=== PATIENT | female | born 1995 | race Caucasian/White ===

== ENCOUNTER 2020-02-29 16:22 | Emergency (ER) | payer BC, SELFPAY ==
--- NOTE | ~2020-02-29 | XR_ITS ---
EXAMINATION: XR chest 1V portable INDICATION: Mid chest pain TECHNIQUE: Portable AP chest at 1815 hours COMPARISON: 06/30/2013 FINDINGS: The lungs are free of acute opacities. There is no pleural effusion or pneumothorax. The ca rdiomediastinal silhouette is normal. The visualized bones and soft tissues are unremarkable. IMPRESSION: 1. No acute cardiopulmonary abnormality. Reviewed, dictated and finalized at location A.
[2020-02-29 16:25] VITALS: BP 98/65; PULSE 88; RESP 19; TEMP 36.8; O2SAT 100
--- NOTE | 2020-02-29 16:25 | ECG_ITS ---
Measurements Intervals [place] Rate: 73 P: 43 CA: 146 QRS: 76 QRSD: 94 T: 39 QT: 353 QTc: 389 Interpretive Statements SINUS RHYTHM NORMAL ECG Electronically Signed On 02-29-2020 16:32:18 CDT by Alexis Purcell D.O.
[2020-02-29 16:37] LABS: Basophils Percent Auto 0.3 % (0.2-1.2); Eosinophils Absolute Auto 0.1 K/mm3 (0-0.3); Eosinophils Percent Auto 0.7 % (0-4.4); Hematocrit 36.1 % (37.0-47.0); Hemoglobin 12.2 g/dL (12.0-15.0); Immature Granulocyte Absolute 0.02 K/mm3 (0.00-0.031); Immature Granulocyte Percent A 0.2 % (0-0.5); Lymphocytes Percent Auto 24.8 % (18.3-44.2); Mean Corpuscular HGB Conc 33.8 g/dl (32-36); Mean Corpuscular Hemoglobin 28.8 pg (26-34); Mean Corpuscular Volume 85.3 fl (80-100); Mean Platelet Volume 10.4 fl (7.4-10.4); Monocytes Absolute Auto 0.6 K/mm3 (0.1-0.6); Monocytes Percent Auto 4.9 % (2.6-8.5); Neutrophils Absolute Auto 7.8 K/mm3 (1.3-6.7); Neutrophils Percent Auto 69.1 % (45.5-73.1); Platelet Count Result 226 k/mm3 (150-375); Red Blood Count 4.23 M/mm3 (4.2-5.4); Red Cell Distribution Width 11.5 % (11.5-14.5); White Blood Count 11.3 K/mm3 (4.5-10.0)
[2020-02-29 16:49] LABS: Blood Urea Nitrogen 8 mg/dL (7-17); Calcium 9.1 mg/dL (8.4-10.2); Carbon Dioxide 24 mmol/L (22-30); Chloride 103 mmol/L (98-107); Estimated Glomerular Filt Rate > 60; Glucose 98 mg/dL (65-105); Potassium 3.6 mmol/L (3.4-5.0); Sodium 135 mmol/L (137-145)
--- NOTE | 2020-02-29 17:15 | ED.SOB ---
HPI - SOB/Dyspnea General Chief Complaint: Shortness of Breath/Dyspnea Stated Complaint: SOB Time Seen by Provider: 02/29/20 17:05 History of Present Illness HPI Narrative: Patient presents with a couple days of increasing shortness of breath. She keeps taking deep cleansing breaths, without improvement. She has no coughing no wheezing no fever chills or sweats. She is 7 weeks . She has a history of anxiety and depression and is on Wellbutrin. She is out of her vitamins. 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 She quit smoking and quit vaping with this . She does not drink alcohol. She does smoke marijuana. She said she had asthma when she was 3. She has not used inhalers that she remembers. Shortness of breath does not limit her activity. Sometimes she gets a just sitting on the couch watching TV. She saw her POWER BUILDER DEVELOPER last week for chest pain with deep breath. Her surgeries include jaw surgery, tonsillectomy, and gastric sleeve bypass. MD elicited complaint: shortness of breath Onset (ago): day(s) Timing: intermittent Related Data Home Medications Medication Instructions Recorded Confirmed Alive 1 tablet PO DAILY 07/26/19 07/28/19 alprazolam [Xanax] 0.25 mg PO BID PRN 07/26/19 07/28/19 bupropion HCl 150 mg PO QPM 07/26/19 07/28/19 esomeprazole magnesium [Nexium 20 mg PO DAILY PRN 07/26/19 07/28/19 24HR] Allergies Allergy/AdvReac Type Severity Reaction Status Date / Time No Known Allergies Allergy Unknown Verified 02/29/20 16:27 Review of Systems Review of Systems: Narrative: CONSTITUTIONAL: Denies fever, chills, or sweats. EYES: Denies visual changes, redness, or discharge. ENT: Denies rhinorrhea, congestion, sore throat, or otalgia. CARDIOVASCULAR: Denies chest pain, palpitations, or edema. RESPIRATORY: Denies cough or but she does have dyspnea. GASTROINTESTINAL: Denies abdominal pain, nausea, vomiting, or diarrhea. GENITOURINARY: Denies dysuria or hematuria. SKIN: Denies rash or itching. MUSCULOSKELETAL: Denies back pain, joint pain, or myalgia. NEUROLOGIC: Denies headache, numbness, or weakness. PSYCHIATRIC: Denies anxiety or depression. [facility] Past Medical History Medical History Anxiety Back pain Depression Surgical History Surgical History History of gastric bypass History of mandibular surgery History of tonsillectomy Family History Family History (Updated 04/05/16 @ 23:19 by DOCTOR UNKNOWN) Grandparent Hypertension Family history of lung cancer Family history of malignant neoplasm of breast Family history of malignant neoplasm of urinary bladder Family history of type 2 diabetes mellitus Family history of heart disease in male family member before age 55 Social History Social History (Updated 02/29/20 @ 17:19 by Jessi Platt MD) Smoking status: Former smoker Second hand tobacco smoke exposure: No Smoking end date: 09/08/13 Alcohol intake: never Substance use: current Substance use type: marijuana Gender identity (if verbalized by the patient): Female Exam Narrative: Exam Narrative: GENERAL: Well-appearing, well-nourished, and in no acute distress. Keeps taking deep sighs. HEAD: Normocephalic, atraumatic. EYES: PERRLA and EOMI. ENT: Nares clear, no rhinorrhea or epistaxis. Mucous membranes moist. NECK: Supple. CHEST: Clear to auscultation. No respiratory distress. No chest wall tenderness. HEART: Regular rate and rhythm. No murmur heard. Normal peripheral pulses. ABDOMEN: Soft, nontender, nondistended, normal active bowel sounds. EXTREMITIES: Normal range of motion. No edema. SKIN: Warm, dry, no rash. NEURO: No focal deficits. Alert and oriented x3. PSYCH: Seems worried. Course Reevaluation(s) Reevaluation #1: Went in to tell the patient about her blood gas in the hyperventilation. She was disappo
[2020-02-29 17:46] LABS: Alveolar/Arterial O2 Gradient 5.6 mmHg; Base Excess ABG -2.1 mEq/l (+/-2.0); Fractional Inspired Oxygen 21 %; HCO3 ABG 20.3 mEq/l (22.0-26.0); Oxygen Saturation ABG 98.4 % (95.0-100.0); Oxyhemoglobin 95.7 % THb (90.0-100.0); PCO2 ABG 28.3 mmHg (35.0-45.0); PO2 ABG 110.2 mmHg (80.0-100.0); PO2 FiO2 Ratio Arterial Blood 5.25 %; Total Hemoglobin 12.5 g/dL (12.0-18.0); pH ABG 7.474 (7.350-7.450)
[2020-02-29 17:47] LABS: Device ROOM AIR; Modified Allen's Test Pass; Site Drawn LEFT RADIAL
[2020-02-29 18:28] VITALS: BP 114/63; PULSE 73; RESP 17; O2SAT 99
== END 2020-02-29 18:29 | disposition home or self-care (01) ==
PROVIDERS: Emergency Provider Emergency Medicine; PCP Internal Medicine
DX: R06.4 Hyperventilation (principal); F41.9 Anxiety disorder, unspecified; F32.9 Major depressive disorder, single episode, unspecified
CPT/HCPCS: 36415; 36600; 71045; 80048; 82805; 85025; 93005; 99284

== ENCOUNTER 2020-07-24 16:32 | Outpatient (RCR) | payer BC, SELFPAY ==
[2020-07-24 16:56] LABS: Hematocrit 30.2 % (37.0-47.0); Hemoglobin 10.1 g/dL (12.0-15.0)
[2020-07-24 18:00] LABS: HIV 1/2 Ab P24 Ag Result Negative (Negative)
[2020-07-25 10:54] LABS: Rapid Plasma Reagin Non-Reactive (NonReactive)
[2020-07-26] MEDS: RHO(D) IMMUNE GLOBULIN 300 MCG SYRINGE IM (12:00)
== END 2020-10-22 23:59 | disposition home or self-care (01) ==
LOC: ANHLAB 16:32
PROVIDERS: PCP Internal Medicine; Visit Provider Obstetrics & Gynecology
DX: Z11.4 Encounter for screening for human immunodeficiency virus [HIV] (principal); Z29.13 Encounter for prophylactic Rho(D) immune globulin; O36.0130 Maternal care for anti-D [Rh] antibodies, third trimester, not applicable or unspecified; Z3A.00 Weeks of gestation of pregnancy not specified
CPT/HCPCS: 36415; 85014; 85018; 85461; 86592; 86703; 90384; 96372; G0432; J2790

== ENCOUNTER 2020-09-17 10:12 | Outpatient (RCR) | payer BC, SELFPAY ==
[2020-09-17 11:02] VITALS: BP 108/64; PULSE 83
[2020-09-17 11:24] LABS: Add Urine Microscopic? NO; Appearance Urine Clear (Clear); Bilirubin Urine Negative (Negative); Blood Urine Negative (Negative); Color Urine Yellow (Yellow); Glucose Urine UA Negative (Negative); Ketones Urine Negative (Negative); Leukocyte Esterase Ur Negative LEU/UL (Negative); Nitrate Urine Negative (Negative); Protein Urine Negative (Negative); Specific Grav Ur 1.016 (1.001-1.035); Urobilinogen Urine Negative mg/dL (<2.0)
== END 2020-10-12 07:53 | disposition home or self-care (01) ==
LOC: ANHOBOP 10:12
PROVIDERS: Advanced Practice Midwife; PCP Internal Medicine; Visit Provider Obstetrics & Gynecology
DX: O36.8130 Decreased fetal movements, third trimester, not applicable or unspecified (principal); Z3A.35 35 weeks gestation of pregnancy
CPT/HCPCS: 59025; 81003

== ENCOUNTER 2020-09-28 10:21 | Observation (INO) | payer BC, SELFPAY ==
--- NOTE | ~2020-09-28 | US_ITS ---
EXAMINATION: US OB BPP wo non-stress DATE: 09/28/2020 13:04 INDICATION: Abnormal biophysical profile. Third trimester. TECHNIQUE: Real-time pelvic ultrasound was performed. COMPARISON: None. FINDINGS: There is a single living fetus in vertex presentation. The placenta is posterior. heart rate i s 141 beats per minute (bpm). Biophysical profile performed by the technologist: breathing (30 sec sustained breathing in 30 minutes): 2 out of 2 movement (3 gross body movements in 30 minutes): 2 out of 2 tone (one episode of dqfibyd-rwddqssji-vcvevxv limb movement): 2 out of 2 Amniotic fluid pocket (2 cm): 2 out of 2 Total score: 8 out of 8 IMPRESSION: 1. Single living fetus in vertex presentation. 2. Biophysical profile 8 out of 8. Reviewed, dictated and finalized at location B. ES SUPERINTENDENT
[2020-09-28 10:41] VITALS: PULSE 65; O2SAT 100
[2020-09-28 10:43] VITALS: BP 98/71; PULSE 70
[2020-09-28 10:46] VITALS: PULSE 71; O2SAT 99
[2020-09-28 11:00] VITALS: TEMP 36.9
[2020-09-28 12:15] VITALS: BP 90/59; PULSE 86
--- NOTE | 2020-10-29 08:29 | PM.OBTRLD ---
OB - Triage/Final Diagnosis Visit Information Comments/Additional reasons for admission: I have assessed the risk for this patient, Ansley Maldonado, and determined that she would benefit from observation care. Final Diagnosis (1) False labor: Code(s): O47.9 - False labor, unspecified Status: Acute
== END 2020-09-28 13:30 | disposition home or self-care (01) ==
PROVIDERS: Admitting Provider Obstetrics & Gynecology; PCP Internal Medicine; Visit Provider Obstetrics & Gynecology
DX: O47.9 False labor, unspecified (principal); Z3A.00 Weeks of gestation of pregnancy not specified
CPT/HCPCS: 76819; G0378; G0379

== ENCOUNTER 2020-10-11 06:05 | Inpatient (IN) | payer BC, SELFPAY ==
[2020-10-11] VITALS (146 sets, daily range): BP systolic 80–163; BP diastolic 30–100; PULSE 46–150; RESP 13; TEMP 36.4–36.7; O2SAT 83–100; BMI 35.9
--- NOTE | 2020-10-11 06:05 | LDADM ---
This patient, Ansley Maldonado, was admitted to Labor/Delivery/Recovery 102 on 10/11/20 at 06:05. Plans for labor, pain management and were discussed with patient. Patient/family oriented to hospital policies and general routines including ID bracelet, bed and alarms, visiting hours, pain management, procedures, bathroom and other care routines, personal items, smoking policy, room service/diet and guest tray routines, infant security routines, and visiting hours. Patient/Family are encouraged to report perceived risks to care and to ask questions if they do not understand what they are told or what they should do. See OBIX for further documentation.
[2020-10-11 07:19] LABS: Glucose Point of Care 106 (65-105)
[2020-10-11 07:28] LABS: Basophils Percent Auto 0.3 % (0.2-1.2); Eosinophils Percent Auto 0.3 % (0-4.4); Hematocrit 28.2 % (37.0-47.0); Hemoglobin 8.7 g/dL (12.0-15.0); Immature Granulocyte Absolute 0.06 K/mm3 (0.00-0.031); Immature Granulocyte Percent A 0.6 % (0-0.5); Lymphocytes Absolute Auto 1.88 K/mm3 (0.9-3.2); Lymphocytes Percent Auto 18.2 % (18.3-44.2); Mean Corpuscular HGB Conc 30.9 g/dl (32-36); Mean Corpuscular Volume 74.6 fl (80-100); Mean Platelet Volume 9.7 fl (7.4-10.4); Monocytes Absolute Auto 0.5 K/mm3 (0.1-0.6); Monocytes Percent Auto 5.2 % (2.6-8.5); Neutrophils Absolute Auto 7.8 K/mm3 (1.3-6.7); Neutrophils Percent Auto 75.4 % (45.5-73.1); Platelet Count Result 220 k/mm3 (150-375); Red Blood Count 3.78 M/mm3 (4.2-5.4); Red Cell Distribution Width 14.4 % (11.5-14.5); White Blood Count 10.3 K/mm3 (4.5-10.0)
[2020-10-11] MEDS: FAMOTIDINE 20 MG/2 ML VIAL IV PUSH (07:42)
--- NOTE | 2020-10-11 07:54 | WPDOBADMIT ---
Obstetrics - Admit Note Admission Note: 24 y/o @ 39w1d here for induction of labor. Pt has had a previous lower transverse for breech presentation. We have discussed risks of tolac in great detail. Understands risk of uterine rupture and and pt desires to proceed. She verbalized understanding of risk. VSS Contractions rare FHR category 1 Cervix 3/80/-2 AROM small amount of clear odorless fluid Plan: Monitor for a couple hours. Low dose pitocin if needed. Encouraged epidural. record reviewed. No pertinent additions to the history and/or any subsequent changes in the physical findings that are not consistent with the expected course of the were found. Additions to the history and/or subsequent changes in the physical findings follow. None.
--- NOTE | 2020-10-11 08:00 | PM.IMHP ---
H&P: HPI History of Present Illness Date/Time: 10/11/20 08:00 Chief Complaint: Induction of labor Narrative: Ansley Maldonado is a 24 year old female Review of Systems Review of Systems: All systems reviewed & are unremarkable except as noted in HPI and below PMFSH Past Medical History Medical History Anxiety Back pain Depression Surgical History Surgical History History of gastric bypass History of mandibular surgery History of tonsillectomy Family History Family History Grandparent Family history of heart disease in male family member before age 55 Family history of malignant neoplasm of breast Family history of lung cancer Family history of malignant neoplasm of urinary bladder Family history of type 2 diabetes mellitus Hypertension Dementia Social History Social History Smoking status: Former smoker Tobacco type: cigarettes Second hand tobacco smoke exposure: No Smoking end date: 09/08/13 Alcohol intake: never Substance use: current Substance use type: marijuana Gender identity (if verbalized by the patient): Female Sexual Orientation (if Verbalized by the Patient): Straight or Heterosexual Spiritual care concerns: No Meds Home Medications and Allergies Home Medications Medication Instructions Recorded Confirmed Type bupropion HCl 150 mg PO QPM 07/26/19 10/11/20 History PNV cmb#95-ferrous fumarate-FA 1 tablet PO DAILY 09/17/20 10/11/20 History [] rmowbpx-zbmqmarhv-rfbu 1 tablet PO DAILY 09/17/20 10/11/20 History fluoxetine [Prozac] 10 mg PO DAILY 09/17/20 10/11/20 History Allergies Allergy/AdvReac Type Severity Reaction Status Date / Time No Known Allergies Allergy Unknown Verified 09/20/20 15:16 Vital Signs Vital Signs - 24 hr 10/11/20 06:34 10/11/20 07:46 Pulse Rate 77 76 Blood Pressure 118/60 120/66 Exam Narrative: Exam Narrative: Please see admit note Resp: Auscultation: clear to auscultation bilaterally Cardio: Rate: regular rate Rhythm: regular rhythm H&P: Results Labs Labs: Short CBC 10/11/20 Range/Units 07:11 WBC 10.3 H (4.5-10.0) K/mm3 Hgb 8.7 L (12.0-15.0) g/dL Hct 28.2 L (37.0-47.0) % Plt Count 220 (150-375) k/mm3 Assessment and Plan Additional Plan Expectant management. Pitocin if needed.
[2020-10-11] MEDS: fentaNYL CITRATE INJ (*CRX) 100 MCG/2 ML VIAL IV PUSH (08:36)
--- NOTE | 2020-10-11 08:39 | WPDANESEPP ---
Anes - Eval Pre Procedure Procedure: Labor Epidural Date/Time: 10/11/20 08:39 Surgeon: Dipika Preop Diagnosis: Labor Pain Pre Op Diagnosis: Induction Patient Data Age: 24 Gender: F Height: 5 ft 2 in Weight: 89 kg Last Vital Signs Temp 36.7 C 10/11/20 06:34 Pulse 74 10/11/20 08:02 BP 80/30 L 10/11/20 08:02 Allergies Allergy/AdvReac Type Severity Reaction Status Date / Time No Known Allergies Allergy Unknown Verified 09/20/20 15:16 Home Medications Medication Instructions Recorded Confirmed Type bupropion HCl 150 mg PO QPM 07/26/19 10/11/20 History PNV cmb#95-ferrous fumarate-FA 1 tablet PO DAILY 09/17/20 10/11/20 History [] nzwakuk-boskxkaav-bobr 1 tablet PO DAILY 09/17/20 10/11/20 History fluoxetine [Prozac] 10 mg PO DAILY 09/17/20 10/11/20 History Laboratory Tests 10/11/20 10/11/20 10/11/20 07:11 07:11 07:11 WBC 10.3 K/mm3 H K/mm3 (4.5-10.0) RBC 3.78 M/mm3 L M/mm3 (4.2-5.4) Hgb 8.7 g/dL L g/dL (12.0-15.0) Hct 28.2 % L % (37.0-47.0) MCV 74.6 fl L fl (80-100) MCH 23.0 pg L pg (26-34) MCHC 30.9 g/dl L g/dl (32-36) RDW 14.4 % % (11.5-14.5) Plt Count 220 k/mm3 k/mm3 (150-375) MPV 9.7 fl fl (7.4-10.4) Immature Gran % (Auto) 0.6 % H % (0-0.5) Neut % (Auto) 75.4 % H % (45.5-73.1) Lymph % (Auto) 18.2 % L % (18.3-44.2) [place] % (Auto) 5.2 % % (2.6-8.5) Eos % (Auto) 0.3 % % (0-4.4) Baso % (Auto) 0.3 % % (0.2-1.2) Lymph # (Auto) 1.88 K/mm3 K/mm3 (0.9-3.2) [place] # (Auto) 0.5 K/mm3 K/mm3 (0.1-0.6) Eos # (Auto) 0.0 K/mm3 K/mm3 (0-0.3) Baso # (Auto) 0.0 K/mm3 K/mm3 (0.0-0.1) Abs Immat Gran (auto) 0.06 K/mm3 H K/mm3 (0.00-0.031) Absolute Neuts (auto) 7.8 K/mm3 H K/mm3 (1.3-6.7) Absolute Nucleated RBC 0.0 K/mm3 K/mm3 (0.0-0.012) Nucleated RBC % 0.0 % % (0.0-0.2) POC Capillary Glucose RPR Pending Blood Type A Negative Antibody Screen Negative 10/11/20 07:17 WBC RBC Hgb Hct MCV MCH MCHC RDW Plt Count MPV Immature Gran % (Auto) Neut % (Auto) Lymph % (Auto) [place] % (Auto) Eos % (Auto) Baso % (Auto) Lymph # (Auto) [place] # (Auto) Eos # (Auto) Baso # (Auto) Abs Immat Gran (auto) Absolute Neuts (auto) Absolute Nucleated RBC Nucleated RBC % POC Capillary Glucose 106 mg/dl mg/dl (65-105) RPR Blood Type Antibody Screen : gestational age ([place] 10/17/20) Patient hx anesthesia problems: none Family hx anesthesia problems: none [facility] Past Medical History Medical History Anxiety Back pain Depression Surgical History Surgical History History of gastric bypass History of mandibular surgery History of tonsillectomy Family History Family History Grandparent Family history of heart disease in male family member before age 55 Family history of malignant neoplasm of breast Family history of lung cancer Family history of malignant neoplasm of urinary bladder Family history of type 2 diabetes mellitus Hypertension Dementia Social History Social History Smoking status: Former smoker Tobacco type: cigarettes Second hand tobacco smoke exposure: No Smoking end date: 09/08/13 Alcohol intake: never Substance use: current Substance use type: marijuana Gender identity (if verbalized by the patient): Female Sexual Orientation (if Verbalized by
[2020-10-11] MEDS: LACTATED RINGERS 1,000 ML 125 ML IV CONT ×3 (08:47→13:18)
[2020-10-11 09:31] LABS: Amphetamine Screen Urine Negative (Negative); Barbiturate Screen Urine Negative (Negative); Benzodiazepines Screen Urine Negative (Negative); Cannabinoid Screen Urine Positive (Negative); Cocaine Screen Urine Negative (Negative); Methadone Screen Urine Negative (Negative); Opiate Screen Urine Negative (Negative); Phencyclidine Screen Urine Negative (Negative)
[2020-10-11] MEDS: ONDANSETRON INJ 4 MG/2 ML VIAL IV PUSH (09:47)
[2020-10-11 11:00] LABS: Glucose Point of Care 72 (65-105)
[2020-10-11] MEDS: OXYTOCIN 30 UNITS/NS 500 ML 30 UNITS/500 ML BAG IV CONT (11:09)
[2020-10-11 11:36] LABS: Rapid Plasma Reagin Non-Reactive (NonReactive)
[2020-10-11] MEDS: PHENYLEPHRINE 1,000 MCG/10 ML SYRINGE 100 MCG IV PUSH (12:26)
[2020-10-11 13:20] LABS: Glucose Point of Care 81 (65-105)
--- NOTE | 2020-10-11 15:32 | PM.OBPRVD ---
OB - Delivery Note Procedure Delivery date: 10/11/20 Procedure: events: Previous and Labor Induction Induction method: AROM and per pitocin protocol Delivery monitor: external FHT, external uterine and internal uterine Route of delivery: Laceration Description: Perineal - 1st Degree Delivery repair: vicryl Quantitative Blood Loss (ml): 244 Anesthesia type: Epidural Baby Date of : 10/11/20 Time of : 15:07 Weeks of gestation at delivery: 39 gender: Female Weight (pounds): 7 Weight (ounces): 5 presentation: vertex position: Right Occiput Anterior Placenta delivery description: Spontaneous cord vessel description: 3 Vessels and Delayed Cord Clamping score one minute: 8 score five minutes: 9 Narrative: Mother and baby in stable condition. Cord gasses collected and handed off to staff.
[2020-10-11] MEDS: OXYTOCIN 30 UNITS/NS 500 ML 30 UNITS/500 ML BAG 125 UNITS IV CONT (15:51)
[2020-10-11] MEDS: LANOLIN (LANSINOH) 7.5 GM CREAM 1 APPLIC TOPICAL (17:14)
[2020-10-11] MEDS: ACETAMINOPHEN 325 MG TABLET 650 MG PO ×2 (17:14→23:15)
[2020-10-11] MEDS: BENZOCAINE 20% AER SPR (*SP) 56 GM CAN 1 SPRAY TOPICAL (17:14)
[2020-10-11] MEDS: WITCH HAZEL 40 PADS 1 PAD TOPICAL (17:14)
[2020-10-11] MEDS: DOCUSATE SODIUM 100 MG CAPSULE PO (22:37)
[2020-10-11] MEDS: POLYSACCHARIDE IRON COMPLEX 150 MG CAPSULE PO (22:37)
[2020-10-12] MEDS: HYDROcodone/acetaminophen (*CRX) 5-325 MG TABLET 1 TAB PO ×4 (02:42→16:00)
[2020-10-12 06:07] LABS: Hematocrit 21.2 % (37.0-47.0)
[2020-10-12 06:16] LABS: Hemoglobin 6.6 g/dL (12.0-15.0)
--- NOTE | 2020-10-12 07:53 | PM.OBPNVD ---
OB - PN: Subj Subjective Date/time seen: 10/12/20 07:53 Patient comments: no complaints baby status: doing well OB - PN: Obj Data Labs CBC & Chem 7: 10/12/20 05:24 Labs: Laboratory Results - last 24 hr 10/11/20 10/11/20 10/11/20 07:11 07:11 08:30 Hgb Hct POC Capillary Glucose Urine Opiates Screen Negative Urine Methadone Screen Negative Ur Barbiturates Screen Negative Ur Phencyclidine Scrn Negative Ur Amphetamine Screen Negative U Benzodiazepines Scrn Negative Urine Cocaine Screen Negative U Cannabinoids Screen Positive A RPR Non-reactive Blood Type A Negative Antibody Screen Negative 10/11/20 10/11/20 10/12/20 10:53 12:04 05:24 Hgb 6.6 L* Hct 21.2 L POC Capillary Glucose 72 81 Urine Opiates Screen Urine Methadone Screen Ur Barbiturates Screen Ur Phencyclidine Scrn Ur Amphetamine Screen U Benzodiazepines Scrn Urine Cocaine Screen U Cannabinoids Screen RPR Blood Type Antibody Screen OB - PN A/P Plan day: 1 Plan: routine care Comments: Pt desires discharge. I would like to recheck her blood counts at noon today. If stable can go home. She needs to start Iron bid that is safe for gastric sleeve. She will contact her surgeon. Time Spent With Patient Time: Total time spent is greater than 50% in coordination of care (as documented) at patient's floor/unit and/or counseling patient: Time with patient: less than 15 minutes Review of Systems Review of Systems: Narrative: Pt doing well. Cramping with . Able to ambulate well. No c/o feeling lightheaded or dizzy. Pt states she feels great. All systems reviewed & are unremarkable except as noted in HPI and below Exam Narrative: Exam Narrative: Fundus firm and vaginal flow controlled. No lower ext redness, warmth, or edema. Negative homans. Const: General: comfortable Chest: Breast/axilla inspection: normal inspection of the breasts Resp: Effort & Inspection: normal respiratory effort Cardio: Rate: regular rate GI: GI Palp: Yes Soft to palpation Psych: Appearance: grossly normal Affect: normal affect Attitude: cooperative Thought content: Yes Normal thought content present Judgement: Good judgement present (Psych)
[2020-10-12] MEDS: MULTIVIT/MIN/PREN/FOL AC/IRON TABLET 1 TAB PO (08:14)
[2020-10-12] MEDS: POLYSACCHARIDE IRON COMPLEX 150 MG CAPSULE PO ×2 (08:14→16:00)
[2020-10-12] MEDS: DOCUSATE SODIUM 100 MG CAPSULE PO ×2 (08:14→16:06)
[2020-10-12 08:15] VITALS: BP 88/50; PULSE 61; RESP 18; TEMP 36.5
[2020-10-12] MEDS: buPROPion HCL XL (24 HR) 150 MG TABCR PO (08:15)
[2020-10-12] MEDS: FLUoxetine HCL 10 MG CAPSULE PO (08:15)
--- NOTE | 2020-10-12 08:38 | WPDANLDPN2 ---
Anes-Prog Note L&D Date/Time: 10/12/20 08:38 Comfortable throughout: labor and delivery Neuraxial method: epidural Epidural/Spinal procedure site: clean & non-tender Neuro status: Neuro function grossly intact. Cardiovascular status: normal Respiratory status: normal Airway patency: baseline Mental status: baseline Post-Op hydration status: normal Vital Signs: Last Vital Signs Temp 36.6 C 10/11/20 19:00 Pulse 62 10/11/20 19:00 Resp 13 10/11/20 19:00 BP 94/45 L 10/11/20 19:00 Pulse Ox 100 10/11/20 19:00 Pain score (VAS): 09/17 I/O: Intake & Output 10/11/20 10/12/20 10/12/20 23:59 07:59 15:59 Intake Total 900 Output Total 152 Balance 748 Post-procedural complaints: none Patient feedback: Patient satisfied with anesthetic care.
[2020-10-12 13:12] LABS: Hematocrit 23.4 % (37.0-47.0); Hemoglobin 7.2 g/dL (12.0-15.0)
--- NOTE | 2020-10-12 14:23 | PCCCNOTE ---
Care Coordination met with pt. this afternoon to discuss discharge planning. Pt.'s current DC plan is to return home with her and 5 year old son. Pt. confirms that her sister is currently at home with her son. Pt. states that she is independent with ADLs and ambulation. Pt. has no DME. Pt. is not current with [facility] and denies need for resources at this time. She will breast feed baby at time of DC and states they have everything they need to safely bring baby home. Pt. understands that she will need to have RN examine baby's car seat prior to DC. Pt. did test positive for Marijuana at time of DC. Pt. states that she occasionally used Marijuana throughout the to assist with nausea and anxiety. Baby's urine was negative and her meconium is pending. Pt. understands that CC is a mandated promotions firm accounts manager and therefore will contact DCFS regarding drug use. Pt. has no questions or concerns at this time. An online report has been made and pt.'s intake number is [phone]. Will follow.
[2020-10-13 12:38] VITALS: BP 119/66; PULSE 64; RESP 20; TEMP 36.9; O2SAT 100
--- NOTE | 2020-10-18 08:06 | PM.OBDSVD ---
DS: Admitting Diagnosis Admitting Diagnosis Admitting Diagnosis: Induction DS: Discharge Diagnosis Discharge Diagnosis (1) Vaginal after : Code(s): O34.219 - Maternal care for unspecified type scar from previous delivery Status: Acute OB - DS: Summary OB Procedures : None OB Procedures Intrapartum: Spontaneous Vag Delivery and OB Procedures: : None Time Spent with Patient Time attestation: Total time spent providing and/or coordinating discharge services: Discharge Plan Discharge Attending physician on discharge: Nelly Schultz Consulting providers: Nelly Schultz Discharging Clinician: Nelly Schultz Patient Disposition: Home, Self-Care Activity: pelvic rest Diet: as tolerated Discharge Instructions: Education: Mom and Baby Guide Given to: Mother Follow-Up: Call your delivering provider's office for an appointment to be seen in: Call office for appointment Mom and baby should come to the [facility] for the follow-up appointment. Appointment Date/Time: October 13, 2020 at 12:00 pm What to expect at your follow-up visit: Physical Assessment Call [phone] if you are unable to keep your appointment time. BREAST CARE: * Wear a snug supportive bra. * For engorgement discomfort: Breast Feeding: * Apply warm moist washcloths * Express milk as needed to relieve engorgement * Wear loose clothing * For sore nipples: * Identify correct latch-on * Apply warm moist washcloths before and after nursing * Air dry nipples after nursing * May apply Lansinoh cream to nipples PERINEAL CARE: * Until bleeding stops, use your nga bottle after urinating * Change your pad frequently throughout the day * You may take sitz baths several times a day (fill your bathtub with warm water and soak for 20 minutes.) Do NOT bathe in the water * No tub baths until seen by your physician - You may shower ACTIVITY: * Rest as much as possible. * Do not exercise or lift anything heavier than your baby (such as laundry or other children.) * Avoid stairs or driving as much as possible. * Do not put anything into the vagina. No douching, tampons, or sexual activity until seen by physician. NOTIFY PHYSICIAN IF YOU HAVE ANY QUESTIONS OR IF ANY OF THE FOLLOWING SYMPTOMS OCCUR: * If your stitches become red, swollen, or more painful than what you have experienced in the hospital. * If your vaginal bleeding becomes foul smelling. * If your vaginal bleeding becomes more heavy than a period or if your bleeding changes from pink to bright red. However, you may pass an occasional walnut-sized clot once or twice for the first week . * If you experience a sharp, shooting pain in you calves. * If you discover a hard, reddened area on your breast or if you experience flu-like symptoms. DIET: * Eat regular, well-balanced meals. * Drink plenty of fluids daily. If , drink to thirst. Patient Instructions: Antibiotic Form Stand Alone Forms: General Discharge Information Follow-up/Referrals: Nelly Schultz CNM [Certified Nurse Continuous Towel Roller] - Discharge Medications: Continued fluoxetine [Prozac] 10 mg Capsule 10 mg PO DAILY RF: 0 rwfbasy-ddwtrzhyp-fmab 333-133-5 mg Tablet 1 tablet PO DAILY RF: 0 PNV cmb#95-ferrous fumarate-FA [] 28 mg iron- 800 mcg Tablet 1 tablet PO DAILY RF: 0 bupropion HCl 150 mg tablet extended release 24 hr 150 mg PO QPM RF: 0 Date of admission: 10/11/20 06:05 Primary Care Provider: Rick,Chucky Hernandez Admitting Provider: Elizabeth Bar Attending physician on admission: Elizabeth Bar Condition: Stable
== END 2020-10-12 17:46 | disposition home or self-care (01) | DRG 806 ==
LOC: ANHLDR 06:12 → ANHOB2 18:54
PROVIDERS: Advanced Practice Midwife; Admitting Provider Obstetrics & Gynecology; PCP Internal Medicine; Visit Provider Obstetrics & Gynecology
DX: O34.211 Maternal care for low transverse scar from previous cesarean delivery (principal); O99.324 Drug use complicating childbirth; Z37.0 Single live birth; Z3A.39 39 weeks gestation of pregnancy; O24.429 Gestational diabetes mellitus in childbirth, unspecified control; O99.344 Other mental disorders complicating childbirth; F12.90 Cannabis use, unspecified, uncomplicated; F41.8 Other specified anxiety disorders; O99.214 Obesity complicating childbirth; E66.9 Obesity, unspecified; O70.0 First degree perineal laceration during delivery
CPT/HCPCS: 36415; 80307; 82948; 85014; 85018; 85025; 86592; 86850; 86900; 86901; A9270; J2370; J2405; J2590; J2795; J3010; J7120

== ENCOUNTER 2020-11-17 10:26 | Emergency (ER) | payer BC, SELFPAY ==
[2020-11-17] VITALS (8 sets, daily range): BP systolic 95–114; BP diastolic 52–77; PULSE 60–68; RESP 16; TEMP 36.3; O2SAT 98–100
--- NOTE | ~2020-11-17 | CT_ITS ---
EXAMINATION: CT abdomen pelvis w con EXAM DATE: 11/17/2020 11:48 INDICATION: Mid back pain for 2 weeks. One month . Perforation. TECHNIQUE: Spiral CT of the abdomen and pelvis was performed following intravenous injection of 100 m L Omnipaque 350. Axial, coronal and sagittal images were reviewed. The dose-length product (DLP) fo r this examination was 449.08 mGy-cm. The exposure was tailored according to patient size (auto mA e xposure control), and iterative reconstruction (ASIR) was used as additional dose reduction technique . There is no prior study for comparison. FINDINGS: The liver, spleen, adrenal glands and pancreas are unremarkable. There is a 1 cm poorly ca lcified gallstone. Gallbladder is distended with edematous wall and hazy adjacent fat stranding. Appe arance is consistent with acute cholecystitis. Portal and splenic veins are patent. Kidneys enhance symmetrically. There is no hydronephrosis. The uterus and ovaries are unremarkable, no adnexal ma ss. The bladder is unremarkable. There is no retroperitoneal or pelvic lymphadenopathy. The appendix is normal. There is suture material along the greater curvature of the stomach. There is expected amount of colonic stool. No free intraperitoneal gas. The heart is normal in size. T here are no pericardial or pleural effusions. The lung bases are unremarkable. The bones are unrema rkable. IMPRESSION: Acute cholecystitis. Reviewed, dictated and finalized at location B. HT PARAMEDIC IMPRESSION: Acute cholecystitis.
--- NOTE | 2020-11-17 10:39 | PC.NURSE ---
Pt to ED with complaints of mid-back pain x2 weeks. Pt denies known injury. Pt reports she is 1 month post-. Pt denies symptoms, n/v/d.
[2020-11-17 11:24] LABS: Basophils Absolute Auto 0.1 K/mm3 (0.0-0.1); Basophils Percent Auto 0.6 % (0.2-1.2); Eosinophils Absolute Auto 0.6 K/mm3 (0-0.3); Eosinophils Percent Auto 5.2 % (0-4.4); Hematocrit 35.2 % (37.0-47.0); Hemoglobin 10.5 g/dL (12.0-15.0); Immature Granulocyte Absolute 0.03 K/mm3 (0.00-0.031); Immature Granulocyte Percent A 0.3 % (0-0.5); Lymphocytes Absolute Auto 1.83 K/mm3 (0.9-3.2); Lymphocytes Percent Auto 16.7 % (18.3-44.2); Mean Corpuscular HGB Conc 29.8 g/dl (32-36); Mean Corpuscular Hemoglobin 22.3 pg (26-34); Mean Corpuscular Volume 74.9 fl (80-100); Mean Platelet Volume 9.9 fl (7.4-10.4); Monocytes Absolute Auto 0.7 K/mm3 (0.1-0.6); Monocytes Percent Auto 6.5 % (2.6-8.5); Neutrophils Absolute Auto 7.8 K/mm3 (1.3-6.7); Neutrophils Percent Auto 70.7 % (45.5-73.1); Platelet Count Result 279 k/mm3 (150-375); Red Cell Distribution Width 16.5 % (11.5-14.5)
[2020-11-17] MEDS: ONDANSETRON INJ 4 MG/2 ML VIAL IV PUSH (11:28)
[2020-11-17] MEDS: SODIUM CHLORIDE 0.9% IV 1,000 ML 999 ML IV CONT (11:28)
[2020-11-17 11:30] LABS: Add Urine Microscopic? YES; Appearance Urine Clear (Clear); Bilirubin Urine Negative (Negative); Blood Urine Negative (Negative); Color Urine Yellow (Yellow); Glucose Urine UA Negative (Negative); Ketones Urine Negative (Negative); Leukocyte Esterase Ur Trace LEU/UL (Negative); Mucus Urine Rare /lpf; Nitrate Urine Negative (Negative); Protein Urine Negative (Negative); RBC Urine 0-2 /hpf (0-2); Specific Grav Ur 1.026 (1.001-1.035); Squamous Epithelial Cell Urine Rare /hpf (Few); Urobilinogen Urine Negative mg/dL (<2.0); WBC Urine 0-3 /hpf
[2020-11-17 11:35] LABS: Alanine Aminotransferase 18 U/L (4-35); Albumin Level 4.2 g/dL (3.5-5.1); Alkaline Phosphatase 93 U/L (38-126); Anion Gap 5 mmol/L (8-16); Aspartate Amino Transferase 22 U/L (14-36); Bilirubin,Total 0.2 mg/dL (0.2-1.3); Blood Urea Nitrogen 13 mg/dL (7-17); Carbon Dioxide 30 mmol/L (22-30); Chloride 106 mmol/L (98-107); Estimated CRCL calculation 127 ml/min; Estimated Glomerular Filt Rate > 60; Glucose 81 mg/dL (65-105); Lipase 100 U/L (23-300); Potassium 4.1 mmol/L (3.4-5.0); Sodium 141 mmol/L (137-145)
[2020-11-17 11:36] LABS: Lactic Acid Reflex 0.9 mmol/L (0.7-2.1)
[2020-11-17 11:37] LABS: Anisocytosis 1+ (NORMAL); Platelet Estimate Adequate (Adequate)
[2020-11-17 11:38] LABS: Hypochromasia 1+ (NORMAL); Microcytosis 1+ (NORMAL)
--- NOTE | 2020-11-17 11:55 | PC.NURSE ---
Pharmacy called for protonix. ED pyxis currently out of stock.
[2020-11-17] MEDS: PANTOPRAZOLE SODIUM IV 40 MG VIAL IV PUSH (12:12)
[2020-11-17] MEDS: MORPHINE SULFATE (*CRX) 4 MG/ML INJ IV PUSH (13:01)
--- NOTE | 2020-11-17 13:42 | ED.GENADULT ---
HPI - General Adult General Chief complaint: Back Pain/Injury <Lex Blue PA-C - Last Filed: 11/17/20 13:49> Stated complaint: back pain, abd pain <Lex Blue PA-C - Last Filed: 11/17/20 13:49> Time Seen by Provider: 11/17/20 10:36 <ESVIN Lu Last Filed: 11/17/20 13:49> Source: patient <ESVIN Lu Last Filed: 11/17/20 13:49> Mode of arrival: ambulatory <ESVIN Lu Last Filed: 11/17/20 13:49> Limitations: no limitations <ESVIN Lu Last Filed: 11/17/20 13:49> History of Present Illness HPI narrative: Patient is a 25-year-old female who presents to emergency department for evaluation of pain in the upper quadrants of the abdomen that has been constant since last night patient notes she has been having this pain off and on for weeks patient has not been seen for this complaint has tried [id number] medications with minimal improvement unsure as to any worsening or bettering etiology patient on arrival appears uncomfortable patient denies any vomiting diarrhea rectal bleeding or melena or URI symptoms <ESVIN Lu Last Filed: 11/17/20 13:49> Related Data Home medications: Home Medications Medication Instructions Recorded Confirmed bupropion HCl 150 mg PO QPM 07/26/19 10/11/20 PNV cmb#95-ferrous fumarate-FA 1 tablet PO DAILY 09/17/20 10/11/20 [] fluoxetine [Prozac] 10 mg PO DAILY 09/17/20 10/11/20 <ESVIN Lu Last Filed: 11/17/20 13:49> Allergies/adverse reactions: Allergies Allergy/AdvReac Type Severity Reaction Status Date / Time No Known Allergies Allergy Unknown Verified 11/17/20 15:03 <ESVIN Lu Last Filed: 11/17/20 13:49> Review of Systems Review of Systems: All systems reviewed & are unremarkable except as noted in HPI and below <ESVIN Lu Last Filed: 11/17/20 13:49> PMFSH Past Medical History Medical History: Medical History Anxiety Back pain Depression History of stomach ulcers <ESVIN Lu Last Filed: 11/17/20 13:49> Surgical History Surgical History: Surgical History History of delivery History of gastric bypass History of mandibular surgery History of tonsillectomy <ESVIN Lu Last Filed: 11/17/20 13:49> Family History Family History: Family History Grandparent Family history of heart disease in male family member before age 55 Family history of malignant neoplasm of breast Family history of lung cancer Family history of malignant neoplasm of urinary bladder Family history of type 2 diabetes mellitus Hypertension Dementia Mother Cerebrovascular accident Hypertension <Lex Blue PA-C - Last Filed: 11/17/20 13:49> Social History Social History: Social History (Updated 11/17/20 @ 15:16 by Vilma Calvillo [facility]) Smoking status: Current every day smoker Tobacco type: cigarettes Alcohol intake: current Alcohol use details: social Substance use: current Substance use type: marijuana Living arrangements: with family Occupation/Education: unemployed Gender identity (if verbalized by the patient): Female Spiritual care concerns: No <ESVIN Lu Last Filed: 11/17/20 13:49> Exam Narrative: Exam Narrative: GENERAL: Well-appearing, well-nourished, uncomfortable and in no acute distress. HEAD: Normocephalic, atraumatic. EYES: PERRLA and EOMI. ENT: Nares clear, no rhinorrhea or epistaxis. Mucous membranes moist. CHEST: Clear to auscultation. No respiratory distress. No wheezes rales or rhonchi HEART: Regular rate and rhythm. No murmur heard. Normal peripheral pulses. ABDOMEN: Soft, tenderness of the upper
== END 2020-11-17 14:36 | disposition home or self-care (01) ==
PROVIDERS: Emergency Medicine Emergency Medical Services; Emergency Provider General Practice; PCP Nurse Practitioner Family
DX: K81.0 Acute cholecystitis (principal); F41.9 Anxiety disorder, unspecified; F32.9 Major depressive disorder, single episode, unspecified; Z98.84 Bariatric surgery status; F17.210 Nicotine dependence, cigarettes, uncomplicated
CPT/HCPCS: 36415; 74177; 80053; 81001; 81025; 83605; 83690; 85025; 96361; 96365; 96375; 99284; C9113; J2270; J2405; J2543; J7030; Q9967

== ENCOUNTER 2020-11-20 20:50 | Inpatient (IN) | payer BC, SELFPAY ==
--- NOTE | ~2020-11-20 | US_ITS ---
EXAMINATION: US abdomen limited DATE: 11/21/2020 08:38 INDICATION: Abdominal pain. TECHNIQUE: Multiple grayscale and Doppler ultrasound images of the abdomen were obtained. COMPARISON: CT abdomen and pelvis 11/17/2020 FINDINGS: The visualized portions of the head and body of the pancreas are normal. The liver is blake l without focal lesion. There is normal flow in main portal vein. The gallbladder is distended and co ntains gallstones. Gallbladder wall thickening is noted. There was a positive sonographic Dorantes sign . The common duct is normal and measures 6 mm. IMPRESSION: 1. Acute cholecystitis. Reviewed, dictated and finalized at location A. IMPRESSION: 1. Acute cholecystitis.
[2020-11-20 20:51] VITALS: BP 142/100; PULSE 70; RESP 16; TEMP 36.8; O2SAT 99
--- NOTE | 2020-11-20 20:59 | ED_ITS ---
HPI - Abdominal Pain General Chief Complaint: Abdominal Pain Stated Complaint: gallbladder Time Seen by Provider: 11/20/20 20:55 Source: patient Related Data Home Medications Medication Instructions Recorded Confirmed bupropion HCl 150 mg PO QPM 07/26/19 11/20/20 PNV cmb#95-ferrous fumarate-FA 1 tablet PO DAILY 09/17/20 11/20/20 [] fluoxetine [Prozac] 10 mg PO DAILY 09/17/20 11/20/20 Allergies Allergy/AdvReac Type Severity Reaction Status Date / Time No Known Allergies Allergy Unknown Verified 11/20/20 14:51 [facility] Past Medical History Medical History (Updated 11/20/20 @ 15:42 by Humaira Johnson) Anxiety Back pain Depression History of stomach ulcers Surgical History Surgical History (Updated 11/20/20 @ 15:42 by Humaira Johnson) History of delivery History of gastric bypass History of mandibular surgery History of tonsillectomy Family History Family History Grandparent Family history of heart disease in male family member before age 55 Family history of malignant neoplasm of breast Family history of lung cancer Family history of malignant neoplasm of urinary bladder Family history of type 2 diabetes mellitus Hypertension Dementia Mother Cerebrovascular accident Hypertension Social History Social History Smoking status: Current every day smoker Tobacco type: cigarettes Alcohol intake: current Substance use: current Substance use type: marijuana Gender identity (if verbalized by the patient): Female Spiritual care concerns: No Course Vital Signs Vital signs: Vital Signs Temperature 36.8 C 11/20/20 20:51 Pulse Rate 70 11/20/20 20:51 Respiratory Rate 16 11/20/20 20:51 Blood Pressure 142/100 H 11/20/20 20:51 Pulse Oximetry 99 11/20/20 20:51 Temperature 36.8 C 11/20/20 20:51 Pulse Rate 70 11/20/20 20:51 Respiratory Rate 16 11/20/20 20:51 Blood Pressure 142/100 H 11/20/20 20:51 Pulse Oximetry 99 11/20/20 20:51 Discharge Plan Discharge Prescriptions: No Action oxycodone-acetaminophen [Percocet] 5-325 mg tablet 1 tablet PO Q6H PRN (Reason: pain) Qty: 30 RF: 0 fluoxetine [Prozac] 10 mg Capsule 10 mg PO DAILY RF: 0 PNV cmb#95-ferrous fumarate-FA [] 28 mg iron- 800 mcg Tablet 1 tablet PO DAILY RF: 0 ciprofloxacin HCl [Cipro] 500 mg tablet 500 mg PO Q12H 7 Days Qty: 14 RF: 0 promethazine 25 mg tablet 25 mg PO Q6H PRN (Reason: nausea and vomiting) Qty: 10 RF: 0 famotidine [Pepcid] 20 mg tablet 20 mg PO BID Qty: 14 RF: 0 bupropion HCl 150 mg tablet extended release 24 hr 150 mg PO QPM RF: 0
--- NOTE | 2020-11-20 21:00 | ED.GENADULT ---
HPI - General Adult General Chief complaint: Abdominal Pain Stated complaint: gallbladder Time Seen by Provider: 11/20/20 20:55 Source: patient History of Present Illness HPI narrative: Patient is a 25 y/o female complaining of right upper abdominal pain starting 3 days ago. She describes her pain as sharp with radiation to back. She rates her pain as 10/10 currently. She state that eating makes her pain worse. She has some nausea, but no vomiting. She was diagnosed with cholecystitis a few days ago. She saw Dr. Starr today and she is scheduled for surgery on in 3 days. However, she returned to ED because her pain has been worse today. Related Data Home Medications Medication Instructions Recorded Confirmed bupropion HCl 150 mg PO QPM 07/26/19 11/20/20 PNV cmb#95-ferrous fumarate-FA 1 tablet PO DAILY 09/17/20 11/20/20 [] fluoxetine [Prozac] 10 mg PO DAILY 09/17/20 11/20/20 Allergies Allergy/AdvReac Type Severity Reaction Status Date / Time No Known Allergies Allergy Unknown Verified 11/20/20 14:51 Review of Systems Constitutional: Constitutional: Denies chills, Denies fever(s), Denies headache(s) and Denies weakness Eyes: Eyes: Denies blurry vision ENT: Denies headache(s) and Denies neck pain Cardiovascular: Cardiovascular: Denies chest pain and Denies dyspnea Respiratory: Respiratory: Denies cough and Denies dyspnea Gastrointestinal: Gastrointestinal: Reports abdominal pain, Denies diarrhea, Reports nausea and Denies vomiting Genitourinary: Genitourinary: Denies hematuria and Denies dysuria Musculoskeletal: Musculoskeletal: Denies back pain and Denies neck pain Neurologic: Denies headache(s) and Denies weakness [facility] Past Medical History Medical History Anxiety Back pain Depression History of stomach ulcers Surgical History Surgical History History of delivery History of gastric bypass History of mandibular surgery History of tonsillectomy Family History Family History Grandparent Family history of heart disease in male family member before age 55 Family history of malignant neoplasm of breast Family history of lung cancer Family history of malignant neoplasm of urinary bladder Family history of type 2 diabetes mellitus Hypertension Dementia Mother Cerebrovascular accident Hypertension Social History Social History Smoking status: Current every day smoker Tobacco type: cigarettes Alcohol intake: current Substance use: current Substance use type: marijuana Gender identity (if verbalized by the patient): Female Spiritual care concerns: No Exam Const: General: no acute distress and well developed Orientation/consciousness: oriented to person, oriented to place, oriented to time and patient oriented x3 HENMT: Head: normocephalic Ears: external ears normal General nose exam: Normal external nose present Eyes: General: appearance normal, both eyes and all related structures Conjunctivae: conjunctivae normal Neck: Neck: normal visual inspection and full ROM Chest: Chest palpation & inspection: normal inspection of the chest and no tenderness Resp: Effort & Inspection: normal respiratory effort Auscultation: clear to auscultation bilaterally Cardio: Rate: regular rate Rhythm: regular rhythm GI: GI Palp: Yes abdominal tenderness (right upper quadrant and epigastric) and Yes Soft to palpation Skin: General skin exam: normal color and turgor normal Neuro: General: oriented to person, oriented to place, oriented to time and patient oriented x3 Cognition (Neuro): normal cognition Extrem: General: normal to inspection, full ROM and no pedal edema Psych: Appearance: grossly normal Mental Status: mental status grossly no
[2020-11-20 21:26] LABS: Basophils Percent Auto 0.3 % (0.2-1.2); Eosinophils Absolute Auto 0.3 K/mm3 (0-0.3); Eosinophils Percent Auto 2.4 % (0-4.4); Hemoglobin 11.1 g/dL (12.0-15.0); Immature Granulocyte Absolute 0.03 K/mm3 (0.00-0.031); Immature Granulocyte Percent A 0.3 % (0-0.5); Lymphocytes Absolute Auto 2.46 K/mm3 (0.9-3.2); Lymphocytes Percent Auto 23.8 % (18.3-44.2); Mean Corpuscular Hemoglobin 22.4 pg (26-34); Mean Corpuscular Volume 74.6 fl (80-100); Mean Platelet Volume 9.4 fl (7.4-10.4); Monocytes Absolute Auto 0.7 K/mm3 (0.1-0.6); Monocytes Percent Auto 6.5 % (2.6-8.5); Neutrophils Absolute Auto 6.9 K/mm3 (1.3-6.7); Neutrophils Percent Auto 66.7 % (45.5-73.1); Platelet Count Result 319 k/mm3 (150-375); Red Blood Count 4.96 M/mm3 (4.2-5.4); Red Cell Distribution Width 16.7 % (11.5-14.5); White Blood Count 10.3 K/mm3 (4.5-10.0)
[2020-11-20 21:29] LABS: Add Urine Microscopic? YES; Appearance Urine Cloudy (Clear); Bilirubin Urine Negative (Negative); Color Urine Yellow (Yellow); Glucose Urine UA Negative (Negative); Ketones Urine Negative (Negative); Leukocyte Esterase Ur 2+ LEU/UL (Negative); Mucus Urine Rare /lpf; Nitrate Urine Negative (Negative); Protein Urine 1+ mg/dL (Negative); Specific Grav Ur 1.025 (1.001-1.035); Squamous Epithelial Cell Urine Occasional /hpf (Few); Transitional Epi Cells Urine Rare /hpf (None Seen); WBC Urine 16-20 /hpf
[2020-11-20] MEDS: ONDANSETRON INJ 4 MG/2 ML VIAL IV PUSH (21:29)
[2020-11-20] MEDS: MORPHINE SULFATE (*CRX) 4 MG/ML INJ IV PUSH ×2 (21:30→23:43)
[2020-11-20 21:32] LABS: Blood Urine Negative (Negative)
[2020-11-20 21:39] LABS: Alanine Aminotransferase 20 U/L (4-35); Albumin Level 4.9 g/dL (3.5-5.1); Alkaline Phosphatase 107 U/L (38-126); Anion Gap 9 mmol/L (8-16); Aspartate Amino Transferase 28 U/L (14-36); Bilirubin,Total 0.2 mg/dL (0.2-1.3); Blood Urea Nitrogen 11 mg/dL (7-17); Carbon Dioxide 31 mmol/L (22-30); Chloride 102 mmol/L (98-107); Estimated CRCL calculation 100 ml/min; Estimated Glomerular Filt Rate > 60; Glucose 90 mg/dL (65-105); Lipase 118 U/L (23-300); Potassium 3.8 mmol/L (3.4-5.0); Sodium 142 mmol/L (137-145)
[2020-11-20 21:59] VITALS: O2SAT 99
[2020-11-20 22:34] VITALS: BP 127/55; PULSE 60; RESP 16; TEMP 37.4; O2SAT 100
[2020-11-20 23:22] VITALS: BMI 32.1
--- NOTE | 2020-11-20 23:27 | ADMGEN ---
This patient, Ansley Maldonado, was admitted to Medical Room 261-01. Patient/family oriented to hospital policies and general routines including ID bracelet, bed and alarms, visiting hours, pain management, procedures, bathroom and other care routines, personal items, smoking policy, room service/diet, and visiting hours. Information on how to activate the Rapid Response Team has been discussed. Patient/Family are encouraged to report perceived risks to care and to ask questions if they do not understand what they are told or what they should do.
[2020-11-20 23:31] VITALS: BMI 33.1
[2020-11-20 23:34] VITALS: O2SAT 100
[2020-11-20] MEDS: SODIUM CHLORIDE 0.9% IV 1,000 ML 125 ML IV CONT (23:42)
[2020-11-21] VITALS (17 sets, daily range): BP systolic 105–131; BP diastolic 58–78; PULSE 54–75; RESP 13–20; TEMP 36.1–37.3; O2SAT 94–100
[2020-11-21] MEDS: MORPHINE SULFATE (*CRX) 4 MG/ML INJ IV PUSH ×2 (01:28→06:17)
[2020-11-21] MEDS: SODIUM CHLORIDE 0.9% IV 1,000 ML 125 ML IV CONT (06:21)
--- NOTE | 2020-11-21 08:50 | PM.IMHP ---
H&P: HPI History of Present Illness Date/Time: 11/21/20 08:50 Chief Complaint: Right upper quadrant abdominal pain Narrative: nAsley is a 25-year-old female who is known to our service, as she was seen in our office by Dr. Starr yesterday for an ER follow-up. Over the past few weeks, the patient has been experiencing intermittent back pain that eventually brought her to the ER on 11/17/2020. Labs in the ER showed WBC at 11,000, normal LFTs, and otherwise unremarkable labs. CT of the abdomen and pelvis showed acute cholecystitis with a 1 cm poorly calcified gallstone. Was given IV Zosyn in the ER and sent home with ciprofloxacin, as well as pain medication and instructions for a low-fat diet. She was scheduled to follow-up yesterday. She reports having an onset of right upper quadrant abdominal pain after the ER visit. Reports nausea, but no vomiting. No fever chills. Yesterday, she reports her abdominal pain was only mild during her office visit, but it has gradually worsened over the last 24 hours. Therefore, she presented to the ER overnight for further evaluation. Our service was contacted by the ER provider and she is now admitted for cholecystitis and intractable abdominal pain. Patient seen this morning on the medical floor with still a significant amount of abdominal pain not improved with current analgesics. No other complaints. Patient is 5 weeks post- following a vaginal delivery and is currently . Review of Systems Constitutional: Constitutional: Reports as per HPI, Reports chills, Denies fatigue, Denies fever(s) and Denies headache(s) Eyes: Eyes: Reports no additional eye complaints and Denies change in vision ENT: Reports Normal hearing present Cardiovascular: Cardiovascular: Reports no additional cardiovascular complaints, Denies chest pain, Denies syncope and Denies leg edema Respiratory: Respiratory: Reports no additional respiratory complaints, Denies cough, Denies dyspnea and Denies wheezing Gastrointestinal: Gastrointestinal: Reports as per HPI, Reports no additional gastrointestinal complaints, Reports abdominal pain (RUQ r/t back), Denies bloating, Denies change in stool character, Denies diarrhea, Reports nausea and Denies vomiting Genitourinary: Genitourinary: Denies hematuria and Denies dysuria Musculoskeletal: Musculoskeletal: Reports no additional musculoskeletal complaints, Denies deformity, Denies joint swelling, Denies radiating pain into limb and Denies tingling Integumentary/Breasts: Skin/Breast: Denies pruritus, Denies lesions, Denies erythema, Denies wounds and Denies jaundice Neurologic: Reports system reviewed and no additional complaints, except as documented, Denies dizziness, Denies headache(s), Denies tingling and Denies tremor(s) Psychiatric: Psychiatric: Denies anxiety and Denies depression PMFSH Past Medical History Medical History Anxiety Back pain Depression History of stomach ulcers Surgical History Surgical History History of delivery History of gastric bypass History of mandibular surgery History of tonsillectomy Family History Family History Grandparent Family history of heart disease in male family member before age 55 Family history of malignant neoplasm of breast Family history of lung cancer Family history of malignant neoplasm of urinary bladder Family history of type 2 diabetes mellitus Hypertension Dementia Mother Cerebrovascular accident Hypertension Social History Social History Social History: Currently 5 weeks post- a vaginal delivery and . Years smoked: 10 Smoking status: Current every day smoker Tobacco type: cigarettes Alcohol intake: current Drinks per
[2020-11-21] MEDS: CHLORHEXIDINE GLUCONATE 4% SOL 120 ML BTL 1 APPLIC TOPICAL (10:08)
[2020-11-21] MEDS: FLUoxetine HCL 10 MG CAPSULE PO (10:09)
[2020-11-21] MEDS: HYDROmorphone HCL INJ (*CRX) 1 MG/ML SYR IV PUSH (10:52)
[2020-11-21] MEDS: ONDANSETRON INJ 4 MG/2 ML VIAL IV PUSH ×2 (10:53→16:44)
[2020-11-21 11:48] LABS: Beta HCG Quantitative < 2.39 mIU/ML
[2020-11-21] MEDS: LACTATED RINGERS 1,000 ML 30 ML IV CONT ×2 (13:20→16:22)
--- NOTE | 2020-11-21 13:30 | PC.NURSE ---
Sent to OR via bed with OR staff.
--- NOTE | 2020-11-21 13:35 | WPDANESEPPF ---
Anes - Initial Pre Proc Eval Procedure: Operation Date: 11/21/20 15:00 Proposed Procedures p Laparoscopic Cholecystectomy - Jovanni Starr MD Date/Time: 11/21/20 13:35 Surgeon: Jovanni Starr MD Pre Op Diagnosis: acute cholecystitis Patient Data Age: 25 Gender: F Height: 1.55 m Weight: 79.5 kg Last Vital Signs Temp 36.1 C L 11/21/20 10:00 Pulse 64 11/21/20 10:00 Resp 18 11/21/20 10:00 BP 113/66 11/21/20 10:00 Pulse Ox 98 11/21/20 10:00 Allergies Allergy/AdvReac Type Severity Reaction Status Date / Time No Known Allergies Allergy Unknown Verified 11/20/20 14:51 Home Medications Medication Instructions Recorded Confirmed Type bupropion HCl 150 mg PO QPM 07/26/19 11/20/20 History PNV cmb#95-ferrous fumarate-FA 1 tablet PO DAILY 09/17/20 11/20/20 History [] fluoxetine [Prozac] 10 mg PO DAILY 09/17/20 11/20/20 History ciprofloxacin HCl [Cipro] 500 mg PO Q12H 7 Days #14 tablet 11/17/20 11/20/20 Rx famotidine [Pepcid] 20 mg PO BID #14 tablet 11/17/20 11/20/20 Rx promethazine 25 mg PO Q6H PRN #10 tablet 11/17/20 11/20/20 Rx famotidine 20 mg PO DAILY 11/20/20 11/21/20 History oxycodone-acetaminophen 5 mg-325 1 tablet PO Q6H PRN #30 tablet 11/20/20 11/20/20 Rx mg tablet Laboratory Tests 11/20/20 11/20/20 11/20/20 21:20 21:20 21:20 WBC 10.3 K/mm3 H K/mm3 (4.5-10.0) RBC 4.96 M/mm3 M/mm3 (4.2-5.4) Hgb 11.1 g/dL L g/dL (12.0-15.0) Hct 37.0 % % (37.0-47.0) MCV 74.6 fl L fl (80-100) MCH 22.4 pg L pg (26-34) MCHC 30.0 g/dl L g/dl (32-36) RDW 16.7 % H % (11.5-14.5) Plt Count 319 k/mm3 k/mm3 (150-375) MPV 9.4 fl fl (7.4-10.4) Immature Gran % (Auto) 0.3 % % (0-0.5) Neut % (Auto) 66.7 % % (45.5-73.1) Lymph % (Auto) 23.8 % % (18.3-44.2) [place] % (Auto) 6.5 % % (2.6-8.5) Eos % (Auto) 2.4 % % (0-4.4) Baso % (Auto) 0.3 % % (0.2-1.2) Lymph # (Auto) 2.46 K/mm3 K/mm3 (0.9-3.2) [place] # (Auto) 0.7 K/mm3 H K/mm3 (0.1-0.6) Eos # (Auto) 0.3 K/mm3 K/mm3 (0-0.3) Baso # (Auto) 0.0 K/mm3 K/mm3 (0.0-0.1) Abs Immat Gran (auto) 0.03 K/mm3 K/mm3 (0.00-0.031) Absolute Neuts (auto) 6.9 K/mm3 H K/mm3 (1.3-6.7) Absolute Nucleated RBC 0.0 K/mm3 K/mm3 (0.0-0.012) Nucleated RBC % 0.0 % % (0.0-0.2) Sodium 142 mmol/L mmol/L (137-145) Potassium 3.8 mmol/L mmol/L (3.4-5.0) Chloride 102 mmol/L mmol/L (98-107) Carbon Dioxide 31 mmol/L H mmol/L (22-30) Anion Gap 9 mmol/L mmol/L (8-16) BUN 11 mg/dL mg/dL (7-17) Creatinine 0.70 mg/dL mg/dL (0.7-1.0) Estim Creat Clear Calc 100 ml/min ml/min Estimated GFR > 60 (59 - ) Glucose 90 mg/dL mg/dL (65-105) Calcium 10.0 mg/dL mg/dL (8.4-10.2) Total Bilirubin 0.2 mg/dL mg/dL (0.2-1.3) AST 28 U/L U/L (14-36) ALT 20 U/L U/L (4-35) Alkaline Phosphatase 107 U/L U/L (38-126) Total Protein 9.0 g/dL H g/dL (6.3-8.2) Albumin 4.9 g/dL g/dL (3.5-5.1) Lipase 118 U/L U/L (23-300) Beta HCG, Quant Urine Color Yellow (Yellow) Urine Appearance Cloudy H (Clear) Urine pH 7.0 (5.0-9.0) Ur Specific [place] 1.025 (1.001-1.035) Urine Protein 1+ mg/dL H mg/dL (Negative) Urine Glucose (UA) Negative mg/dL mg/dL (Negative) Urine Ketones Negative mg/dL mg/dL (Negative) Ur Blood (Man) Negative (Negative) Urine Nitrate Negative (Negative) Urine Bilirubin Negative (Negative) Urine Urobilinogen 2.0 mg/dL H mg/dL (<2.0) Leukocyte Esterase Rfl 2+ DAYSI/UL H DAYSI/UL
[2020-11-21] MEDS: FAMOTIDINE 20 MG/2 ML VIAL IV PUSH (13:56)
--- NOTE | 2020-11-21 14:38 | WPDHPUPDATE1 ---
History and Physical Update Update Date/Time: 11/21/20 14:38 History and Physical has been reviewed, including an updated exam of the patient. There are NO changes in the patient's condition. Risks, benefits, and alternatives have been discussed and questions answered. Patient agrees to proceed with procedure.
--- NOTE | 2020-11-21 16:32 | PM.PROC ---
Procedure Note - Detailed Date of procedure: 11/21/20 Pre-op diagnosis: acute cholecystitis Cholelithiasis with acute cholecystitis and cystic duct obstruction, hydrops Post-op diagnosis: same Procedure performed: Laparoscopic cholecystectomy Description of procedure: The patient was taken to surgery and induced into general anesthesia. The abdomen was prepped and draped. Trocars were placed in the usual fashion using 0.5% Marcaine with epinephrine and applied Medical optical trocars. A 5 millimeter camera was used. The gallbladder was obviously acutely and severely inflamed with acute and chronic inflammation. It was tensely distended, the wall was thickened, it was hypervascular, there was a lot of edema, it was partially intrahepatic. There were numerous omental adhesions to the gallbladder. The gallbladder was decompressed with a laparoscopic aspirator. It decompressed nicely. We were then able to elevate the gallbladder and take down the adhesions. The adhesions were tenaciously stuck to the gallbladder and it was slow going peeling them off the gallbladder wall. This was somewhat bloody as well due to the acute inflammation. Eventually we freed the adhesions and expose the infundibulum and cholecystohepatic triangle. The gallbladder was retracted anterosuperiorly. Traction was placed on the infundibulum. The cystic duct and cystic artery were dissected out very clearly. The gallbladder was dissected off the liver at its lower 3rd. Critical view was achieved. We securely clipped and divided the cystic duct and cystic artery. The gallbladder was then further retracted so that the peritoneal attachments to the liver could be divided. Freeing the gallbladder from the liver was also very difficult due to the adhesion and the gallbladder being partially intrahepatic. Some dissection into the liver surface occurred. Some entry into the gallbladder occurred as the tissue planes between the 2 was obscured. We dissected towards the fundus and eventually freed enough of the gallbladder the that it could be dissected off the liver. Once the gallbladder was freed entirely, it was placed in an Endo-Catch bag and retrieved through the 10 11 epigastric trocar site. The epigastric trocar was then replaced. We reviewed the right upper quadrant. It was irrigated and suctioned. Additional cautery was used and the gallbladder fossa was made meticulously hemostatic. More irrigation and suctioning was carried out. No evidence of bleeding or bile leakage was noted. Skin wounds were closed with subcuticular 4 O Monocryl skin suture. We evacuated CO2 and removed the trocar sleeves. The wounds were dressed with Exofin surgical adhesive. Patient was awakened and taken to recovery in good condition. Sponge and needle counts were correct x2. Anesthesia: GETA and local (0.5% Marcaine with epinephrine) Surgeon: Jovanni Starr MD Waste Minimization Technician: Patricia ROCA Estimated blood loss (mL): 20 Drains: No Packing: No Pathology: yes (Gallbladder) Complications: None Condition: stable Disposition: PACU Findings: Severe acute and chronic inflammation, several gallstones noted. Hydrops of the gallbladder. No biliary ductal dilatation, no liver abnormalities.
[2020-11-21] MEDS: fentaNYL CITRATE INJ (*CRX) 100 MCG/2 ML VIAL 25 MCG IV PUSH ×4 (16:50→17:20)
--- NOTE | 2020-11-21 17:30 | PC.NURSE ---
Received patient from OR via bed with OR staff. Patient settled in room. No distress noted. C/O pain 4/10 to abdominal incisions.
[2020-11-21] MEDS: HYDROcodone/acetaminophen (*CRX) 5-325 MG TABLET 1 TAB PO (18:24)
[2020-11-21] MEDS: LACTATED RINGERS 1,000 ML 100 ML IV CONT (18:25)
[2020-11-21] MEDS: FAMOTIDINE 20 MG TABLET PO (20:57)
[2020-11-21] MEDS: SENNA/DOCUSATE SODIUM TABLET 2 TAB PO (20:57)
[2020-11-21] MEDS: MORPHINE SULFATE (*CRX) 2 MG/ML INJ IV PUSH (21:09)
[2020-11-21] MEDS: HYDROcodone/acetaminophen (*CRX) 10-325 MG TABLET 1 TAB PO (23:19)
[2020-11-22 05:34] LABS: Hematocrit 32.1 % (37.0-47.0); Hemoglobin 9.5 g/dL (12.0-15.0); Mean Corpuscular HGB Conc 29.6 g/dl (32-36); Mean Corpuscular Hemoglobin 22.4 pg (26-34); Mean Corpuscular Volume 75.5 fl (80-100); Mean Platelet Volume 9.7 fl (7.4-10.4); Platelet Count Result 281 k/mm3 (150-375); Red Blood Count 4.25 M/mm3 (4.2-5.4); Red Cell Distribution Width 16.4 % (11.5-14.5); White Blood Count 9.3 K/mm3 (4.5-10.0)
[2020-11-22 05:53] LABS: Anion Gap 7 mmol/L (8-16); Blood Urea Nitrogen 6 mg/dL (7-17); Calcium 8.8 mg/dL (8.4-10.2); Carbon Dioxide 25 mmol/L (22-30); Chloride 105 mmol/L (98-107); Estimated CRCL calculation 138 ml/min; Estimated Glomerular Filt Rate > 60; Glucose 94 mg/dL (65-105); Potassium 4.3 mmol/L (3.4-5.0); Sodium 137 mmol/L (137-145)
[2020-11-22 06:00] VITALS: BP 110/73; PULSE 57; RESP 21; TEMP 36.6; O2SAT 100
[2020-11-22] MEDS: HYDROcodone/acetaminophen (*CRX) 10-325 MG TABLET 1 TAB PO (06:02)
--- NOTE | 2020-11-22 07:19 | PM.DS ---
DS: Admitting Diagnosis Admitting Diagnosis Admitting Diagnosis: acute cholecystitis, cholelithiasis with cystic duct obstruction history of gastric bypass surgery smoker DS: Discharge Diagnosis Discharge Diagnosis (1) Cholelithiasis and acute cholecystitis with obstruction: Code(s): K80.01 - Calculus of gallbladder with acute cholecystitis with obstruction Status: Acute (2) History of gastric bypass: Code(s): Z98.84 - Bariatric surgery status Status: Chronic (3) Tobacco abuse: Code(s): Z72.0 - Tobacco use Status: Chronic DS: Summary Hospital Course Hospital Course: see summary narrative Time Spent with Patient Time attestation: Total time spent providing and/or coordinating discharge services: patient is a 25-year-old woman who was in the emergency room last weekend with severe right upper quadrant pain and gallstones by imaging. She was seen in the office on 11/20/2020 and was still uncomfortable primarily with back pain. she was recommended to have laparoscopic cholecystectomy and the surgery was scheduled for 11/23/2020. The patient was taking Percocet p.r.n. for pain. However she was too uncomfortable in came to the emergency room in the evening on 11/20/2020. She was admitted with severe pain. She was started on IV Zosyn. She was then taken to surgery by Dr. farooq on 11/21/2020 and underwent laparoscopic cholecystectomy. Intraoperative findings showed acute cholecystitis with evidence of chronic cholecystitis. There was a large stone in the neck of the gallbladder and there was hydrops of the gallbladder. The surgery went well. The patient was feeling much better on the day of discharge 11/22/2020. She was tolerating oral intake and having minimal discomfort. She was discharged in improved condition. Exam Const: General: comfortable and no acute distress; No confusion Orientation/consciousness: patient oriented x3 and No confusion GI: Inspection: non-distended and incision ( All incisions healing well) GI Palp: Yes Soft to palpation, Yes Tenderness to palpation present (GI) ( minimal appropriate postoperative tenderness), No Guarding due to palpation present (GI) and No Rebound tenderness present Auscultation: normal bowel sounds Neuro: General: patient oriented x3, no focal motor deficits and No confusion Extrem: General: no calf tenderness and no edema Psych: Affect: normal affect Insight: Good insight present (Psych) Judgement: Good judgement present (Psych) DS: Data Data Completed and Pending Pending studies at discharge: Pending at discharge 11/21/20 15:44 Surgical [PTH] Routine Labs on day of discharge: Labs from last 24 hours 11/22/20 11/22/20 11/21/20 05:17 05:17 08:05 WBC 9.3 RBC 4.25 Hgb 9.5 L Hct 32.1 L MCV 75.5 L MCH 22.4 L MCHC 29.6 L RDW 16.4 H Plt Count 281 MPV 9.7 Sodium 137 Potassium 4.3 Chloride 105 Carbon Dioxide 25 Anion Gap 7 L BUN 6 L D Creatinine 0.50 L Estim Creat Clear Calc 138 Estimated GFR > 60 Glucose 94 Calcium 8.8 Beta HCG, Quant Blood Type A Negative Antibody Screen Negative 11/20/20 21:20 WBC RBC Hgb Hct MCV MCH MCHC RDW Plt Count MPV Sodium Potassium Chloride Carbon Dioxide Anion Gap BUN Creatinine Estim Creat Clear Calc Estimated GFR Glucose Calcium Beta HCG, Quant < 2.39 Blood Type Antibody Screen Discharge Plan Discharge Attending physician on discharge: Jovanni Farooq Discharging Clinician: Jovanni Farooq Anticipated Discharge Date/Time: 11/22/20 07:25 Patient Disposition: Home, Self-Care Activity: may shower, no straining and as tolerated Diet: low fat Wound Care Instructions: incision open to air Discharge Instructions: 1. May shower the day after surgery over incisions. 2. Call office for: -Wound increasingly painful or bleeding -Vo
--- NOTE | 2020-11-22 08:15 | WPDANESPN ---
Anes - Prog Note Post-Op Date/Time: 11/22/20 08:15 Cardiovascular status: normal Respiratory status: normal Airway patency: baseline Mental status: baseline Post-Op hydration status: normal Vital Signs: Last Vital Signs Temp 36.6 C 11/22/20 06:00 Pulse 57 L 11/22/20 06:00 Resp 21 H 11/22/20 06:00 BP 110/73 11/22/20 06:00 Pulse Ox 100 11/22/20 06:00 Pain Score (VAS): 2 I/O: Intake & Output 11/21/20 11/22/20 11/22/20 23:59 07:59 15:59 Intake Total 740 600 Output Total 1000 Balance 740 -400 Laboratory Tests 11/22/20 05:17 11/22/20 05:17 11/20/20 11/21/20 11/22/20 21:20 08:05 05:17 WBC 9.3 RBC 4.25 Hgb 9.5 L Hct 32.1 L MCV 75.5 L MCH 22.4 L MCHC 29.6 L RDW 16.4 H Plt Count 281 MPV 9.7 Sodium Potassium Chloride Carbon Dioxide Anion Gap BUN Creatinine Estim Creat Clear Calc Estimated GFR Glucose Calcium Beta HCG, Quant < 2.39 Blood Type A Negative Antibody Screen Negative 11/22/20 05:17 WBC RBC Hgb Hct MCV MCH MCHC RDW Plt Count MPV Sodium 137 Potassium 4.3 Chloride 105 Carbon Dioxide 25 Anion Gap 7 L BUN 6 L D Creatinine 0.50 L Estim Creat Clear Calc 138 Estimated GFR > 60 Glucose 94 Calcium 8.8 Beta HCG, Quant Blood Type Antibody Screen Microbiology 11/20/20 21:20 Unspecified Urine Culture - Final Post-procedural complaints: none Patient Feedback: Patient satisfied with anesthetic care.
== END 2020-11-22 08:45 | disposition home or self-care (01) | DRG 769 ==
LOC: ANHED 21:15 → ANH2MED 22:22
PROVIDERS: Anesthesiology; Admitting Provider Surgery; Emergency Provider Emergency Medicine; PCP Nurse Practitioner Family; Visit Provider Surgery
PROC: 0FT44ZZ Resection of Gallbladder, Percutaneous Endoscopic Approach (ICD-10-PCS; CPT 47562; principal; 2020-11-21 15:00)
DX: O99.63 Diseases of the digestive system complicating the puerperium (principal); K80.13 Calculus of gallbladder with acute and chronic cholecystitis with obstruction; K82.1 Hydrops of gallbladder; O99.335 Smoking (tobacco) complicating the puerperium; F17.210 Nicotine dependence, cigarettes, uncomplicated; Z98.84 Bariatric surgery status; Z28.21 Immunization not carried out because of patient refusal; Z79.899 Other long term (current) drug therapy
CPT/HCPCS: 36415; 76705; 80048; 80053; 81001; 81025; 83690; 84702; 85025; 85027; 86850; 86900; 86901; 87086; 88304; 96361; 96365; 96366; 96375; 96376; 99285; A9270; C1713; G0378; J1170; J2250; J2270; J2405; J2543; J2704; J2710; J3010; J7030; J7120

== ENCOUNTER 2021-03-30 14:44 | Outpatient (CLI) | payer BC, SELFPAY ==
[2021-03-30 14:59] LABS: Basophils Percent Auto 0.4 % (0.2-1.2); Eosinophils Absolute Auto 0.1 K/mm3 (0-0.3); Eosinophils Percent Auto 1.7 % (0-4.4); Hematocrit 35.5 % (37.0-47.0); Hemoglobin 11.3 g/dL (12.0-15.0); Immature Granulocyte Absolute 0.02 K/mm3 (0.00-0.031); Immature Granulocyte Percent A 0.4 % (0-0.5); Lymphocytes Absolute Auto 1.89 K/mm3 (0.9-3.2); Lymphocytes Percent Auto 35.3 % (18.3-44.2); Mean Corpuscular HGB Conc 31.8 g/dl (32-36); Mean Corpuscular Hemoglobin 25.3 pg (26-34); Mean Corpuscular Volume 79.6 fl (80-100); Mean Platelet Volume 10.4 fl (7.4-10.4); Monocytes Absolute Auto 0.5 K/mm3 (0.1-0.6); Monocytes Percent Auto 9.5 % (2.6-8.5); Neutrophils Absolute Auto 2.8 K/mm3 (1.3-6.7); Neutrophils Percent Auto 52.7 % (45.5-73.1); Platelet Count Result 231 k/mm3 (150-375); Red Blood Count 4.46 M/mm3 (4.2-5.4); Red Cell Distribution Width 15.8 % (11.5-14.5); White Blood Count 5.4 K/mm3 (4.5-10.0)
[2021-03-30 16:17] LABS: Iron 104 ug/dL (37-170)
[2021-03-30 16:20] LABS: Alanine Aminotransferase 17 U/L (4-35); Albumin Level 4.7 g/dL (3.5-5.1); Alkaline Phosphatase 81 U/L (38-126); Anion Gap 9 mmol/L (8-16); Aspartate Amino Transferase 19 U/L (14-36); Bilirubin,Total 0.4 mg/dL (0.2-1.3); Blood Urea Nitrogen 15 mg/dL (7-17); Calcium 10.1 mg/dL (8.4-10.2); Carbon Dioxide 28 mmol/L (22-30); Chloride 103 mmol/L (98-107); Estimated Glomerular Filt Rate > 60; Glucose 79 mg/dL (65-110); Potassium 4.5 mmol/L (3.4-5.0); Sodium 140 mmol/L (137-145)
[2021-03-30 16:26] LABS: Percent Iron Saturation 24 % (20-50)
[2021-03-30 16:52] LABS: Ferritin 6.28 ng/mL (6.24-137)
== END 2021-03-30 14:45 | disposition home or self-care (01) ==
LOC: ANHLAB 14:46
PROVIDERS: PCP Nurse Practitioner Family; Visit Provider Internal Medicine Hematology & Oncology
DX: D50.8 Other iron deficiency anemias (principal)
CPT/HCPCS: 36415; 80053; 82607; 82728; 83540; 83550; 85025

== ENCOUNTER 2021-10-24 08:20 | Outpatient (RCR) | payer BC, OTHER, SELFPAY ==
[2021-10-24] MEDS: RHO(D) IMMUNE GLOBULIN 300 MCG/2 ML SYRINGE IM (16:33)
== END 2022-01-20 23:59 | disposition home or self-care (01) ==
LOC: ANHLAB 08:20
PROVIDERS: Visit Provider Obstetrics & Gynecology
DX: Z29.13 Encounter for prophylactic Rho(D) immune globulin (principal); O36.0190 Maternal care for anti-D [Rh] antibodies, unspecified trimester, not applicable or unspecified; O20.0 Threatened abortion; Z3A.00 Weeks of gestation of pregnancy not specified
CPT/HCPCS: 36415; 84702; 85461; 90384; 96372; J2790

== ENCOUNTER 2021-10-24 15:32 | Outpatient (RCR) | payer BC, OTHER, SELFPAY | END 2022-01-22 23:59 | disposition home or self-care (01) | LOC: ANHLAB 15:32 | PROVIDERS: Visit Provider Obstetrics & Gynecology | DX: O20.0 Threatened abortion (principal); Z3A.00 Weeks of gestation of pregnancy not specified | CPT/HCPCS: 36415; 84702 ==

== ENCOUNTER 2021-12-18 14:57 | Emergency (ER) | payer BC, OTHER, SELFPAY ==
--- NOTE | 2021-12-18 15:31 | ED.NAVMDI ---
HPI - Nausea/Vomiting/Diarrhea General Chief complaint: Nausea/Vomiting/Diarrhea Stated complaint: vomiting Time Seen by Provider: 12/18/21 15:27 Source: patient and RN notes reviewed Mode of arrival: ambulatory Limitations: no limitations History of Present Illness HPI Narrative: Patient is 26 years old white female, 14 weeks presents to the ED with nausea, vomiting and diarrhea started over the last 24 hours. Patient is 5, para 3, 1. Patient reports that her 6 years old son had similar symptoms. Patient woke up this morning with coughing, nasal congestion and postnasal discharge. Related Data Home Medications Medication Instructions Recorded Confirmed bupropion HCl 150 mg PO QPM 07/26/19 12/06/20 PNV cmb#95-ferrous fumarate-FA 1 tablet PO DAILY 09/17/20 12/06/20 [] fluoxetine [Prozac] 10 mg PO DAILY 09/17/20 12/06/20 Allergies Allergy/AdvReac Type Severity Reaction Status Date / Time No Known Allergies Allergy Unknown Verified 12/04/20 13:47 Review of Systems Review of Systems: CONSTITUTIONAL: Denies fever, chills, or sweats. EYES: Denies visual changes, redness, or discharge. ENT: Denies rhinorrhea, congestion, sore throat, or otalgia. CARDIOVASCULAR: Denies chest pain, palpitations, or edema. RESPIRATORY: Denies cough or dyspnea. GASTROINTESTINAL: Denies abdominal pain, nausea, vomiting, or diarrhea. GENITOURINARY: Denies dysuria or hematuria. SKIN: Denies rash or itching. MUSCULOSKELETAL: Denies back pain, joint pain, or myalgia. NEUROLOGIC: Denies headache, numbness, or weakness. PSYCHIATRIC: Denies anxiety or depression. [facility] Past Medical History Medical History Anxiety Back pain Depression History of stomach ulcers Surgical History Surgical History History of delivery History of gastric bypass History of mandibular surgery History of tonsillectomy Hx laparoscopic cholecystectomy Family History Family History Grandparent Family history of heart disease in male family member before age 55 Family history of malignant neoplasm of breast Family history of lung cancer Family history of malignant neoplasm of urinary bladder Family history of type 2 diabetes mellitus Hypertension Dementia Mother Cerebrovascular accident Hypertension Social History Social History Social History: Currently 5 weeks post- a vaginal delivery and . Years smoked: 10 Tobacco type: cigarettes Alcohol intake: current Drinks per week: 1 Alcohol use details: social Substance use: current Substance use type: marijuana Gender identity (if verbalized by the patient): Female Sexual Orientation (if Verbalized by the Patient): Straight or Heterosexual Spiritual care concerns: No Exam Narrative: General appearance: Well-developed, well-nourished Skin: Normal color Head: Normocephalic, nontraumatic Eyes: Clear conjunctiva ENT: Oropharynx normal, ears normal, nose normal Neck: Supple, nontender Chest and respiratory: Airway patent, no respiratory distress, no accessory muscle use Heart: Regular rate/rhythm Abdomen: Soft, mild epigastric tenderness , no organomegaly, quiet bowel sounds Vascular: Normal peripheral pulses, normal capillary refill. Musculoskeletal: Normal range of motion, nontender back Neurologic: Alert and oriented ?3, PHARMACY TECHNICIAN INFUSION is normal as tested, no gross motor deficit Course Course Emergency Course: Stable, im
[2021-12-18 15:35] VITALS: BP 106/50; PULSE 83; RESP 14; TEMP 37.1; O2SAT 100
[2021-12-18] MEDS: SODIUM CHLORIDE 0.9% IV 2,000 ML 999 ML IV CONT (16:04)
[2021-12-18 16:12] LABS: Basophils Percent Auto 0.2 % (0.2-1.2); Eosinophils Absolute Auto 0.1 K/mm3 (0-0.3); Eosinophils Percent Auto 1.1 % (0-4.4); Hemoglobin 11.2 g/dL (12.0-15.0); Immature Granulocyte Absolute 0.03 K/mm3 (0.00-0.031); Immature Granulocyte Percent A 0.3 % (0-0.5); Lymphocytes Absolute Auto 1.51 K/mm3 (0.9-3.2); Lymphocytes Percent Auto 15.8 % (18.3-44.2); Mean Corpuscular HGB Conc 32.9 g/dl (32-36); Mean Corpuscular Hemoglobin 27.5 pg (26-34); Mean Corpuscular Volume 83.3 fl (80-100); Mean Platelet Volume 10.1 fl (7.4-10.4); Monocytes Absolute Auto 0.7 K/mm3 (0.1-0.6); Monocytes Percent Auto 6.8 % (2.6-8.5); Neutrophils Absolute Auto 7.3 K/mm3 (1.3-6.7); Neutrophils Percent Auto 75.8 % (45.5-73.1); Platelet Count Result 200 k/mm3 (150-375); Red Blood Count 4.08 M/mm3 (4.2-5.4); Red Cell Distribution Width 13.7 % (11.5-14.5); White Blood Count 9.6 K/mm3 (4.5-10.0)
[2021-12-18 16:24] LABS: Appearance Urine Clear (Clear); Bilirubin Urine Negative (Negative); Blood Urine Negative (Negative); Color Urine Yellow (Yellow); Glucose Urine UA Negative (Negative); Ketones Urine 1+ mg/dL (Negative); Leukocyte Esterase Ur Negative LEU/UL (Negative); Nitrate Urine Negative (Negative); Protein Urine Negative (Negative); Specific Grav Ur >= 1.030 (1.001-1.035); Urobilinogen Urine 0.2 mg/dL (<2.0); pH Urine 6.5 (5.0-9.0)
[2021-12-18 16:28] LABS: Alanine Aminotransferase 10 U/L (4-35); Albumin Level 3.9 g/dL (3.5-5.1); Alkaline Phosphatase 57 U/L (38-126); Anion Gap 5 mmol/L (8-16); Aspartate Amino Transferase 18 U/L (14-36); Bilirubin,Total 0.2 mg/dL (0.2-1.3); Blood Urea Nitrogen 6 mg/dL (7-17); Calcium 8.4 mg/dL (8.4-10.2); Carbon Dioxide 22 mmol/L (22-30); Chloride 105 mmol/L (98-107); Estimated CRCL calculation 166 ml/min; Estimated Glomerular Filt Rate > 60; Glucose 72 mg/dL (65-110); Potassium 3.4 mmol/L (3.4-5.0); Sodium 132 mmol/L (137-145)
[2021-12-18 16:42] LABS: Mucus Urine Few /lpf; Squamous Epithelial Cell Urine Many /hpf (Few); WBC Urine 0-3 /hpf
[2021-12-18] MEDS: ONDANSETRON INJ 4 MG/2 ML VIAL 8 MG IV PUSH (16:44)
[2021-12-18 17:00] LABS: Add Urine Microscopic? YES
[2021-12-18] MEDS: MORPHINE SULFATE (*CRX) 4 MG/ML INJ IV PUSH (17:35)
[2021-12-18 18:01] VITALS: BP 107/74; PULSE 76; RESP 14; O2SAT 98
[2021-12-18 18:32] VITALS: BP 102/65; PULSE 84; RESP 14; O2SAT 100
[2021-12-18 18:51] LABS: Lipase 100 U/L (23-300)
[2021-12-18 20:03] VITALS: BP 103/63; PULSE 86; RESP 14; O2SAT 99
--- NOTE | 2021-12-18 20:04 | PC.NURSE ---
Handoff received from Pepe RN. Patient lying comfortably in ED Stretcher. Calm and cooperative. AAOX4. Equal and unlabored resp. Skin is warm and dry. 20g IV to RAC in place secured and patent. EDP requested PO Challenge. Patient given to crackers and apple juice. Will reassess C/O moderate abd pain that radiates towards back. 5/10 sharp pain. EDP notified.
[2021-12-18] MEDS: BELLADONNA ALK/PHENOB ELIX 10 ML, MAG HYDROX/ALUMINUM HYD/SIMETH 30 ML, LIDOCAINE HCL 2... PO (20:58)
[2021-12-18] MEDS: DICYCLOMINE HCL INJ 20 MG/2 ML VIAL IM (21:00)
[2021-12-18 21:21] VITALS: BP 102/60; PULSE 96; RESP 14; TEMP 36.4; O2SAT 99
== END 2021-12-18 21:24 | disposition home or self-care (01) ==
PROVIDERS: Emergency Provider Emergency Medicine; PCP Nurse Practitioner Family
DX: O99.612 Diseases of the digestive system complicating pregnancy, second trimester (principal); K52.9 Noninfective gastroenteritis and colitis, unspecified; O99.342 Other mental disorders complicating pregnancy, second trimester; F41.9 Anxiety disorder, unspecified; F32.A Depression, unspecified; O99.842 Bariatric surgery status complicating pregnancy, second trimester; O99.332 Smoking (tobacco) complicating pregnancy, second trimester; F17.210 Nicotine dependence, cigarettes, uncomplicated; Z3A.14 14 weeks gestation of pregnancy
CPT/HCPCS: 36415; 80053; 81001; 83690; 85025; 96361; 96372; 96374; 96375; 99284; A9270; J0500; J2270; J2405; J7030

== ENCOUNTER 2021-12-25 11:35 | Emergency (ER) | payer BC, OTHER, SELFPAY ==
[2021-12-25 11:43] VITALS: BP 117/65; PULSE 99; RESP 16; TEMP 36.7; O2SAT 97
--- NOTE | 2021-12-25 12:04 | ED.URI ---
HPI - URI/Sore Throat General Chief Complaint: Upper Respiratory Infection Stated Complaint: cough Time Seen by Provider: 12/25/21 12:07 Source: patient, RN notes reviewed and old records reviewed Mode of arrival: ambulatory Limitations: no limitations History of Present Illness HPI Narrative: 26-year-old female presents to the [facility] with complaints of bilateral ear pain, cough and congestion. Reports that she is 14 weeks . Reports calling her primary who had her come to the [facility]. Patient reports that she was seen at [facility] 4 days ago for nausea and vomiting. Per patient record she was seen a week ago at [place] emergency room for gastroenteritis. Patient denies any abdominal pain currently. No chest pain or shortness of breath. Has taken Mucinex for her symptoms. Related Data Home Medications Medication Instructions Recorded Confirmed PNV cmb#95-ferrous fumarate-FA 1 tablet PO DAILY 09/17/20 12/25/21 [] Allergies Allergy/AdvReac Type Severity Reaction Status Date / Time No Known Allergies Allergy Unknown Verified 12/04/20 13:47 Review of Systems Review of Systems: All systems reviewed & are unremarkable except as noted in HPI and below Constitutional: Constitutional: Reports no additional constitutional complaints, Denies chills, Denies fever(s) and Denies headache(s) Eyes: Eyes: Reports no additional eye complaints ENT: Reports as per HPI, Denies vertigo, Denies dizziness, Denies headache(s), Reports nasal congestion and Denies sore throat Comments: Bilateral ear pain Cardiovascular: Cardiovascular: Reports no additional cardiovascular complaints, Denies chest pain, Denies syncope, Denies rapid heart rate and Denies dyspnea Respiratory: Respiratory: Reports as per HPI, Reports cough, Denies dyspnea and Denies wheezing Gastrointestinal: Gastrointestinal: Reports no additional gastrointestinal complaints, Denies abdominal pain, Denies diarrhea, Denies nausea and Denies vomiting Musculoskeletal: Musculoskeletal: Reports no additional musculoskeletal complaints and Denies numbness Integumentary/Breasts: Skin/Breast: Reports system reviewed and no additional complaints, except as docu Neurologic: Reports system reviewed and no additional complaints, except as documented, Denies vertigo, Denies dizziness, Denies syncope, Denies headache(s), Denies focal weakness and Denies numbness Psychiatric: Psychiatric: Reports no additional psychiatric complaints Allergic/Immunologic: Allergic/Immunologic: Reports no additional allergic/immunologic complaints PMFSH Past Medical History Medical History Anxiety Back pain Depression History of stomach ulcers Surgical History Surgical History History of delivery History of gastric bypass History of mandibular surgery History of tonsillectomy Hx laparoscopic cholecystectomy Family History Family History Grandparent Family history of heart disease in male family member before age 55 Family history of malignant neoplasm of breast Family history of lung cancer Family history of malignant neoplasm of urinary bladder Family history of type 2 diabetes mellitus Hypertension Dementia Mother Cerebrovascular accident Hypertension Social History Social History Social History: Currently 5 weeks post- a vaginal delivery and . Years smoked: 10 Tobacco type: cigarettes Alcohol intake: current Drinks per week: 1 Alcohol use details: social Substance use: current Substance use type: marijuana Gender identity (if verbalized by the patient): Female Sexual Orientation (if Verbalized by the Patient): Straight or Heterosexual Spiritual care concerns: No Comment
== END 2021-12-25 12:27 | disposition home or self-care (01) ==
PROVIDERS: Emergency Provider Nurse Practitioner; PCP Nurse Practitioner Family
DX: O26.892 Other specified pregnancy related conditions, second trimester (principal); Z3A.14 14 weeks gestation of pregnancy; H66.92 Otitis media, unspecified, left ear
CPT/HCPCS: 99213; G0463

== ENCOUNTER 2022-05-29 18:25 | Outpatient (CLI) | payer BC, OTHER, SELFPAY ==
--- NOTE | 2022-05-29 18:40 | PC.NURSE ---
Pt here with c/o leg swelling. States she has a spot on her left leg that there is a lump. Denies tenderness on the lump, does not feel warm and does not appear red. Left lower leg 2+ edema and right leg 1+ edema. Slight bump felt on left leg, same is felt on right leg. Left leg seems more pronounced due to being slightly more swollen. No pedal edema.
[2022-05-29 18:41] VITALS: BP 111/64; PULSE 73
[2022-05-29 18:46] VITALS: BP 109/56; PULSE 90
[2022-05-29 19:22] LABS: Basophils Percent Auto 0.2 % (0.2-1.2); Eosinophils Absolute Auto 0.1 K/mm3 (0-0.3); Eosinophils Percent Auto 0.4 % (0-4.4); Hematocrit 28.2 % (37.0-47.0); Hemoglobin 8.4 g/dL (12.0-15.0); Immature Granulocyte Absolute 0.08 K/mm3 (0.00-0.031); Immature Granulocyte Percent A 0.6 % (0-0.5); Lymphocytes Absolute Auto 1.89 K/mm3 (0.9-3.2); Lymphocytes Percent Auto 15.4 % (18.3-44.2); Mean Corpuscular HGB Conc 29.8 g/dl (32-36); Mean Corpuscular Hemoglobin 21.6 pg (26-34); Mean Corpuscular Volume 72.5 fl (80-100); Mean Platelet Volume 9.2 fl (7.4-10.4); Monocytes Absolute Auto 0.6 K/mm3 (0.1-0.6); Neutrophils Absolute Auto 9.6 K/mm3 (1.3-6.7); Neutrophils Percent Auto 78.4 % (45.5-73.1); Platelet Count Result 234 k/mm3 (150-375); Red Blood Count 3.89 M/mm3 (4.2-5.4); Red Cell Distribution Width 15.5 % (11.5-14.5); White Blood Count 12.3 K/mm3 (4.5-10.0)
[2022-05-29 19:28] LABS: Creatinine Urine 104.6 mg/dL; Total Protein Urine Random 6 mg/dL; Ur Ttl Prot Creatinine Ratio 0.06 mg/mg (0-0.20)
[2022-05-29 19:32] LABS: Alanine Aminotransferase 15 U/L (6-35); Albumin Level 3.3 g/dL (3.5-5.1); Alkaline Phosphatase 200 U/L (38-126); Anion Gap 9 mmol/L (8-16); Aspartate Amino Transferase 19 U/L (14-36); Bilirubin,Total 0.4 mg/dL (0.2-1.3); Blood Urea Nitrogen 6 mg/dL (7-17); Calcium 8.6 mg/dL (8.4-10.2); Carbon Dioxide 21 mmol/L (22-30); Chloride 105 mmol/L (98-107); Estimated Glomerular Filt Rate > 60; Glucose 107 mg/dL (65-110); Potassium 3.4 mmol/L (3.4-5.0); Sodium 135 mmol/L (137-145); Uric Acid 3.3 mg/dL (2.5-7.5)
[2022-05-29 20:03] LABS: Appearance Urine Slightly Cloudy (Clear); Bilirubin Urine Negative (Negative); Blood Urine Negative (Negative); Color Urine Yellow (Yellow); Glucose Urine UA Negative (Negative); Ketones Urine 2+ mg/dL (Negative); Leukocyte Esterase Ur Negative LEU/UL (NEGATIVE); Nitrate Urine Negative (Negative); Protein Urine Negative (Negative); pH Urine 6.5 (5.0-9.0)
[2022-05-29 20:07] LABS: Platelet Estimate Adequate (Adequate)
[2022-05-29 20:08] LABS: Hyperchromasia 2+ (NORMAL); Hypochromasia 1+ (NORMAL)
[2022-05-29 20:14] LABS: Bacteria Urine Trace /hpf; Mucus Urine Rare /lpf; RBC Urine 0-2 /hpf (0-2); Squamous Epithelial Cell Urine Few /hpf (Few); WBC Urine 0-3 /hpf (0-3)
[2022-05-29 20:15] LABS: Add Urine Microscopic? YES
--- NOTE | 2022-05-29 20:58 | PC.NURSE ---
Pt will be discharged. Instructed if any change in bump on her leg to speak with her physician or to go to the ER for evaluation. Discussed larger area, or warm/red or tender or increased swelling. Verbalized understanding.
== END 2022-05-29 20:45 | disposition home or self-care (01) ==
LOC: ANHOBOP 18:32 → ANHOBPP 18:32
PROVIDERS: Advanced Practice Midwife; PCP Nurse Practitioner Family; Visit Provider Obstetrics & Gynecology
DX: O13.9 Gestational [pregnancy-induced] hypertension without significant proteinuria, unspecified trimester (principal); Z3A.00 Weeks of gestation of pregnancy not specified
CPT/HCPCS: 36415; 59025; 80053; 81001; 82570; 84156; 84550; 85025; 87086; 87088; 99199

== ENCOUNTER 2022-06-20 05:09 | Inpatient (IN) | payer BC, OTHER, SELFPAY ==
[2022-06-20] VITALS (84 sets, daily range): BP systolic 67–155; BP diastolic 35–130; PULSE 51–121; RESP 18; TEMP 36.1–36.6; O2SAT 96–100; BMI 37.0
--- OUTSIDE RECORDS SUMMARY | 2022-06-20 05:16 | XMS_ITS | Encounter Summary ---
:1995 Author Care Team Providers Name Role Phone Celeste Morley Kimber Primary Care Provider [phone] Reason for Visit None recorded. Assessment and Plan 1. AND/OR placental disorder affe cting management of mother ? US, obstetric, follow-up Discussion Note: None recorded.Patient educational handouts: No information available. Plan of Care Reminders Provider Appointments None recorded. ? ? Lab None recorded. ? ? Referral None recorded. ? ? Procedures None recorded. ? ? Surgeries None recorded. ? ? Imaging US, Obstetric, Follow-up 05/28/2022 Daniel garcia Medications Name Start Date ? ? bupropion HCl XL 300 mg 24 hr tablet, extended release ? DHA 200 mg capsule ? Slow Fe 142 mg (45 mg iron) tablet,extended release ? Take 1 tablet every day by oral route as directed. zolpidem 10 mg tablet ? TAKE 1 TABLET BY MOUTH AT BEDTIME NEEDED Medications Administered None recorded. Vitals None recorded. Results Lab Results None recorded. Allergies Code Code System Name Reaction Severity Onset NKDA ? ? ? Problems Name Status Onset Date Source ? Active 12/26/2021 ? Procedures Date Name Performed by ? 04/08/2018 Jaw Arthroscopy/surgery Information not available Notes: surgery for double jaw 03/02/2018 Laparoscopic Sleeve Gastrectomy Informat ion not available 05/02/2015 Section Information not avai lable 09/08/2011 Tonsillectomy Information not avai lable 05/01/2022 US, Obstetric, Follow-up Brett
--- OUTSIDE RECORDS SUMMARY | 2022-06-20 05:16 | XMS_ITS ---
:1995 Author Care Team Providers Name Role Phone LUIS F SALEEM SHERRON Primary Care Provider [phone] Allergies Code Code System Name Reaction Severity Status Onset NKDA ? Medications Name Status Start Date Stop Date ? ? acetaminophen 500 mg tablet Completed ? 03/09 amoxicillin 500 mg capsule Completed ? 05/29 amoxicillin 875 mg tablet Completed ? 2021 ampicillin 500 mg capsule Completed ? 2021 TAKE 1 CAPSULE BY MOUTH EVERY 12 HOURS FOR 10 DAYS BD Integra Syringe 3 mL 25 gauge x 5/8 Completed ? 11/05/2021 USE DIRECTED TO INJECT B12 bupropion HCl 100 mg tablet Completed ? 09/08 TAKE 1 TABLET BY MOUTH THREE TIMES DAILY DIRECTED bupropion HCl XL 300 mg 24 hr tablet, extended release Active ? Not available cyanocobalamin (vit B-12) 1,000 mcg/mL injection Completed ? 11/05/2021 solution dextroamphetamine-amphetamine 10 mg tablet Completed ? 04/18/2022 TAKE 1 TABLET BY MOUTH TWICE DAILY escitalopram 10 mg tablet Completed ? 2019 famotidine 20 mg tablet Completed ? 04/18/20 22 fluoxetine 10 mg capsule Completed ? 022 TAKE 1 CAPSULE BY MOUTH DAILY fluoxetine 20 mg capsule Completed ? 022 TAKE 1 CAPSULE BY MOUTH EVERY DAY fluoxetine 40 mg capsule Completed ? 022 lamotrigine 25 mg tablet Completed ? 022 nitrofurantoin monohydrate/macrocrystals 100 mg capsule Complete d ? 04/18/2022 ondansetron 4 mg disintegrating tablet Completed ? 04/18/2022 ondansetron HCl 4 mg tablet Completed ? 12/2020 OneTouch Delica Plus Lancet 33 gauge Completed ?
--- OUTSIDE RECORDS SUMMARY | 2022-06-20 05:16 | XMS_ITS | Encounter Summary ---
:1995 Author Care Team Providers Name Role Phone Celeste Peyman Quiroga Primary Care Provider [phone] Reason for Visit OB visit OB [id number] EDC 06/19/2022 LMP 09/12/2021 Assessment and Plan Assessment Note Patient is _37__weeks . Discuss ed plan. 1. Routine care Discussion Note: None recorded.Patient educational handouts: No information available. Plan of Care Reminders Provider Appointments None recorded. ? ? Lab None recorded. ? ? Referral None recorded. ? ? Procedures None recorded. ? ? Surgeries None recorded. ? ? Imaging None recorded. ? ? Medications Name Start Date ? ? bupropion HCl XL 300 mg 24 hr tablet, extended release ? DHA 200 mg capsule ? Slow Fe 142 mg (45 mg iron) tablet,extended release ? Take 1 tablet every day by oral route as directed. zolpidem 10 mg tablet ? TAKE 1 TABLET BY MOUTH AT BEDTIME NEEDED Medications Administered None recorded. Vitals Height Weight BMI Blood Pressure 5 ft 0.75 in 202 lbs 38.5 kg/m2 97/66 mm[Hg] Results Lab Results None recorded. Allergies Code Code System Name Reaction Severity Onset NKDA ? ? ? Problems Name Status Onset Date Source ? Active 12/26/2021 ? Procedures Date Name Performed by ? 04/08/2018 Jaw Arthroscopy/surgery Information not available Notes: surgery for double jaw 03/02/2018 Laparoscopic Sleeve Gastrectomy Informat ion not available
--- OUTSIDE RECORDS SUMMARY | 2022-06-20 05:16 | XMS_ITS | Encounter Summary ---
:1995 Author Care Team Providers Name Role Phone Celeste Peyman Quiroga Primary Care Provider [phone] Reason for Visit OB visit OB [id number] EDC 06/19/2022 LMP 09/12/2021 Assessment and Plan Assessment Note Patient is __39_weeks . Discuss ed plan. Discussion Note: None recorded.Patient educational handouts: No [...] BMI Blood Pressure 5 ft 0.75 in 205 lbs 39.1 kg/m2 105/68 mm[Hg] Results Lab Results None recorded. Allergies Code Code System Name Reaction Severity Onset NKDA ? ? ? Problems Name Status Onset Date Source ? Active 12/26/2021 ? Procedures Date Name Performed by ? 04/08/2018 Jaw Arthroscopy/surgery Information not available Notes: surgery for double jaw 03/02/2018 Laparoscopic Sleeve Gastrectomy Informat ion not available 05/02/2015 Section Information not alejandra novoa
--- OUTSIDE RECORDS SUMMARY | 2022-06-20 05:16 | XMS_ITS | Encounter Summary ---
:1995 Author Care Team Providers Name Role Phone Celeste Peyman Quiroga Primary Care Provider [phone] Reason for Visit OB visit [id number] EDC 06/19/2022 LMP 09/12/2021 Assessment and Plan Assessment Note Patient is __36_weeks . Discuss ed plan. 1. Routine care [...] BMI Blood Pressure 5 ft 0.75 in 201 lbs 38.3 kg/m2 95/64 mm[Hg] Results Lab Results None recorded. Allergies Code Code System Name Reaction Severity Onset NKDA ? ? ? Problems Name Status Onset Date Source ? Active 12/26/2021 ? Procedures Date Name Performed by ? 04/08/2018 Jaw Arthroscopy/surgery Information not available Notes: surgery for double jaw 03/02/2018 Laparoscopic Sleeve Gastrectomy Informat ion not available
--- OUTSIDE RECORDS SUMMARY | 2022-06-20 05:16 | XMS_ITS | Encounter Summary ---
:1995 Author Care Team Providers Name Role Phone Celeste Peyman Quiroga Primary Care Provider [phone] Reason for Visit OB visit Assessment and Plan Assessment Note Patient is __37_weeks . Discuss ed plan. 1. Routine care [...]
--- OUTSIDE RECORDS SUMMARY | 2022-06-20 05:16 | XMS_ITS | Encounter Summary ---
:1995 Author Care Team Providers Name Role Phone Celeste Peyman Quiroga Primary Care Provider [phone] Reason for Visit OB visit OB [id number] EDC 06/19/2022 LMP 09/12/2021 Assessment and Plan Assessment Note Patient is __35_weeks . Discuss ed plan. 1. Routine care [...] BMI Blood Pressure 5 ft 0.75 in 200 lbs 38.1 kg/m2 126/80 mm[Hg] Results Lab Results None recorded. Allergies Code Code System Name Reaction Severity Onset NKDA ? ? ? Problems Name Status Onset Date Source ? Active 12/26/2021 ? Procedures Date Name Performed by ? 04/08/2018 Jaw Arthroscopy/surgery Information not available Notes: surgery for double jaw 03/02/2018 Laparoscopic Sleeve Gastrectomy Informat ion not available
--- OUTSIDE RECORDS SUMMARY | 2022-06-20 05:16 | XMS_ITS | Encounter Summary ---
:1995 Author Care Team Providers Name Role Phone Celeste Peyman Quiroga Primary Care Provider [phone] Reason for Visit OB visit OB [id number] EDC 06/19/2022 LMP 09/12/2021 Assessment and Plan Assessment Note Patient is _38__weeks . Discuss ed plan. 1. Routine care [...] BMI Blood Pressure 5 ft 0.75 in 207 lbs 39.4 kg/m2 106/71 mm[Hg] Results Lab Results None recorded. Allergies Code Code System Name Reaction Severity Onset NKDA ? ? ? Problems Name Status Onset Date Source ? Active 12/26/2021 ? Procedures Date Name Performed by ? 04/08/2018 Jaw Arthroscopy/surgery Information not available Notes: surgery for double jaw 03/02/2018 Laparoscopic Sleeve Gastrectomy Informat ion not available
--- OUTSIDE RECORDS SUMMARY | 2022-06-20 05:16 | XMS_ITS | Encounter Summary ---
:1995 Author Care Team Providers Name Role Phone Celeste Peyman Quiroga Primary Care Provider [phone] Reason for Visit OB visit OB [id number] EDC 06/19/2022 LMP 09/12/2021 Assessment and Plan Assessment Note Patient is __33_weeks . Discuss ed plan. 1. Routine care [...] BMI Blood Pressure 5 ft 0.75 in 192 lbs 36.6 kg/m2 103/72 mm[Hg] Results Lab Results None recorded. Allergies Code Code System Name Reaction Severity Onset NKDA ? ? ? Problems Name Status Onset Date Source ? Active 12/26/2021 ? Procedures Date Name Performed by ? 04/08/2018 Jaw Arthroscopy/surgery Information not available Notes: surgery for double jaw 03/02/2018 Laparoscopic Sleeve Gastrectomy Informat ion not available
--- OUTSIDE RECORDS SUMMARY | 2022-06-20 05:17 | XMS_ITS | Encounter Summary ---
:1995 Author Care Team Providers Name Role Phone Celeste Peyman Quiroga Primary Care Provider [phone] Reason for Visit OB visit OB [id number] EDC 06/19/2022 LMP 09/12/2021 Assessment and Plan Assessment Note Patient is _31__weeks . Discuss ed plan. 1. Routine care [...] BMI Blood Pressure 5 ft 0.75 in 189 lbs 36 kg/m2 92/56 mm[Hg] Results Lab Results None recorded. Allergies Code Code System Name Reaction Severity Onset NKDA ? ? ? Problems Name Status Onset Date Source ? Active 12/26/2021 ? Procedures Date Name Performed by ? 04/08/2018 Jaw Arthroscopy/surgery Information not available Notes: surgery for double jaw 03/02/2018 Laparoscopic Sleeve Gastrectomy Informat ion not available
--- OUTSIDE RECORDS SUMMARY | 2022-06-20 05:17 | XMS_ITS | Encounter Summary ---
:1995 Author Care Team Providers Name Role Phone Celeste Morley Kimber Primary Care Provider [phone] Reason for Visit None recorded. Assessment and Plan 1. Placental condition affecting manage ment of mother ? US, obstetric, follow-up Discussion Note: None recorded.Patient educational handouts: No information available. Plan of Care Reminders Provider Appointments None recorded. ? ? Lab None recorded. ? ? Referral None recorded. ? ? Procedures None recorded. ? ? Surgeries None recorded. ? ? Imaging US, Obstetric, Follow-up 05/01/2022 Daniel garcia Medications Name Start Date ? [...] lable 09/08/2011 Tonsillectomy Information not avai lable 04/03/2022 US, Obstetric, Follow-up Brett
--- OUTSIDE RECORDS SUMMARY | 2022-06-20 05:17 | XMS_ITS | Encounter Summary ---
:1995 Author Care Team Providers Name Role Phone Celeste Morley Kimber Primary Care Provider [phone] Reason for Visit None recorded. Assessment and Plan 1. Marginal insertion of umbilical cord ? US, obstetric, follow-up Discussion Note: None recorded.Patient educational handouts: No information available. Plan of Care Reminders Provider Appointments None recorded. ? ? Lab None recorded. ? ? Referral None recorded. ? ? Procedures None recorded. ? ? Surgeries None recorded. ? ? Imaging US, Obstetric, Follow-up 04/03/2022 Daniel garcia Medications Name Start Date ? [...] lable 09/08/2011 Tonsillectomy Information not avai lable 03/06/2022 US, Obstetric, Follow-up Brett
--- OUTSIDE RECORDS SUMMARY | 2022-06-20 05:17 | XMS_ITS | Encounter Summary ---
:1995 Author Care Team Providers Name Role Phone Celeste Morley Kimber Primary Care Provider [phone] Reason for Visit OB visit OB [id number] EDC 06/19/2022 LMP 09/12/2021 Assessment and Plan Assessment Note Patient is _29__weeks . Discuss ed plan. 1. Routine care 2. Urinary tract infectious disease ? Macrobid 100 mg capsule Discussion Note: None recorded.Patient educational handouts: No [...] BMI Blood Pressure 5 ft 0.75 in 186 lbs 35.4 kg/m2 105/71 mm[Hg] Results Lab Results None recorded. Allergies Code Code System Name Reaction Severity Onset NKDA ? ? ? Problems Name Status Onset Date Source ? Active 12/26/2021 ? Procedures Date Name Performed by ? 04/08/2018 Jaw Arthroscopy/surgery Information not available
--- OUTSIDE RECORDS SUMMARY | 2022-06-20 05:17 | XMS_ITS ---
:1995 Author Care Team Providers Name Role Phone Yuliet Pérez Primary Care Provider Unavailable Allergies Code Code System Name Reaction Severity Status Onset NKDA ? Medications Name Status Start Date Stop Date ? ? acetaminophen 300 mg-codeine 30 mg tablet Unknown ? Not available acetaminophen 500 mg tablet Completed ? 02/06 TK 1 T PO Q 4 H PRN P amoxicillin 500 mg capsule Active ? Not a vailable TK 1 C PO TID FOR 7 DAYS amoxicillin 875 mg-potassium clavulanate 125 mg tablet Completed ? 05/20/2018 TK 1 T PO BID TAT azithromycin 250 mg tablet Completed ? 02/20 benzonatate 100 mg capsule Unknown ? Not a vailable TK 2 CS PO TID benzonatate 200 mg capsule Completed ? 04/30 TK 1 C PO TID FOR 5 DAYS bupropion HCl SR 100 mg tablet,12 hr sustained-release Completed ? 02/25/2018 TK 1 T PO BID bupropion HCl SR 150 mg tablet,12 hr sustained-release Completed ? 05/20/2018 TAKE 1 TABLET BY MOUTH TWICE DAILY bupropion HCl XL 150 mg 24 hr tablet, extended release Active ? Not available cephalexin 250 mg/5 mL oral suspension Completed ? 05/20/2018 TK 2 REAL PO QID TAT chlorhexidine gluconate 0.12 % mouthwash Completed ? 05/20/2018 SWISH AND SPIT 15 ML POST MEALS clindamycin HCl 300 mg capsule Completed ? 0 05/20/2018 TK ONE C PO QID FOR 10 DAYS Deep Sea Nasal 0.65 % spray aerosol Completed ? 05/20/2018 U 2 SPRAYS IEN Q HOUR PRN dicyclomine 20 mg tablet Completed ? 017 TK 1 T PO Q 6 H
--- OUTSIDE RECORDS SUMMARY | 2022-06-20 05:18 | XMS_ITS ---
:1995 Author Allergies Code Code System Name Reaction Severity Status Onset NKDA ? Medications Name Status Start Date Stop Date ? ? calcium carbonate 600 mg-vitamin D3 20 mcg (800 unit) tablet Act sonia ? Not available Take 1 tablet twice a day by oral route. Nexplanon 68 mg subdermal implant Active ? Not available Inject 1 implant by subcutaneous route. Vitamin tablet Active ? Not avai lable Take 1 tablet every day by oral route with meals. Problems No Known Problems Procedures Date Name Performed by ? 09/08/2014 Caesarean Section Information not avai lable Results Lab Results Date Name Specimen Result Interpretation Description Value Range Status Address ? 09/21/2015 HCG, Intact ? HCG,beta <1 mIU/mL ? Fi nal [facility]: + Beta Subunit,qnt,serum [address], [address] , Quant, Serum Dubl in or Plasma ? ? Hcg negative ? ? In-Of fice Test, Urine Order : Internal U se Only DO No t Attach Compendium DO Not Attach Compendium , Do Not Delete/lauryn ge ? Urinalysis, ? Leukocytes Negative ? ? In-Office
[2022-06-20] MEDS: LACTATED RINGERS 1,000 ML 125 ML IV CONT ×3 (06:32→14:29)
[2022-06-20] MEDS: OXYTOCIN 30 UNITS/NS 500 ML 30 UNITS/500 ML BAG IV CONT (06:32)
[2022-06-20 06:43] LABS: Basophils Percent Auto 0.3 % (0.2-1.2); Eosinophils Percent Auto 0.3 % (0-4.4); Hematocrit 28.1 % (37.0-47.0); Hemoglobin 8.3 g/dL (12.0-15.0); Immature Granulocyte Absolute 0.04 K/mm3 (0.00-0.031); Immature Granulocyte Percent A 0.5 % (0-0.5); Lymphocytes Absolute Auto 2.09 K/mm3 (0.9-3.2); Lymphocytes Percent Auto 23.9 % (18.3-44.2); Mean Corpuscular HGB Conc 29.5 g/dl (32-36); Mean Corpuscular Hemoglobin 21.2 pg (26-34); Mean Corpuscular Volume 71.9 fl (80-100); Mean Platelet Volume 9.5 fl (7.4-10.4); Monocytes Absolute Auto 0.6 K/mm3 (0.1-0.6); Monocytes Percent Auto 7.2 % (2.6-8.5); Neutrophils Absolute Auto 5.9 K/mm3 (1.3-6.7); Neutrophils Percent Auto 67.8 % (45.5-73.1); Platelet Count Result 253 k/mm3 (150-375); Red Blood Count 3.91 M/mm3 (4.2-5.4); Red Cell Distribution Width 17.3 % (11.5-14.5); White Blood Count 8.7 K/mm3 (4.5-10.0)
--- NOTE | 2022-06-20 07:21 | WPDANESEPP ---
Anes - Eval Pre Procedure Procedure: labor epidural Date/Time: 06/20/22 07:21 Surgeon: cassandra Preop Diagnosis: pain during labor Pre Op Diagnosis: Induction of Labor Patient Data Age: 26 Gender: F Height: 1.57 m Weight: 92 kg Last Vital Signs Pulse 73 06/20/22 07:08 BP 114/69 06/20/22 07:08 O2 Del Method Room Air 06/20/22 06:38 Allergies Allergy/AdvReac Type Severity Reaction Status Date / Time No Known Allergies Allergy Unknown Verified 12/04/20 13:47 Home Medications Medication Instructions Recorded Confirmed Type vit no.95-ferrous 1 tablet PO DAILY 09/17/20 05/29/22 History fumarate 28 mg-folic acid 800 mcg tablet () zolpidem 10 mg tablet 10 mg PO HS 05/29/22 05/29/22 History Laboratory Tests 06/20/22 06/20/22 06:21 06:21 WBC 8.7 K/mm3 K/mm3 (4.5-10.0) RBC 3.91 M/mm3 L M/mm3 (4.2-5.4) Hgb 8.3 g/dL L g/dL (12.0-15.0) Hct 28.1 % L % (37.0-47.0) MCV 71.9 fl L fl (80-100) MCH 21.2 pg L pg (26-34) MCHC 29.5 g/dl L g/dl (32-36) RDW 17.3 % H % (11.5-14.5) Plt Count 253 k/mm3 k/mm3 (150-375) MPV 9.5 fl fl (7.4-10.4) Immature Gran % (Auto) 0.5 % % (0-0.5) Neut % (Auto) 67.8 % % (45.5-73.1) Lymph % (Auto) 23.9 % % (18.3-44.2) [place] % (Auto) 7.2 % % (2.6-8.5) Eos % (Auto) 0.3 % % (0-4.4) Baso % (Auto) 0.3 % % (0.2-1.2) Lymph # (Auto) 2.09 K/mm3 K/mm3 (0.9-3.2) [place] # (Auto) 0.6 K/mm3 K/mm3 (0.1-0.6) Eos # (Auto) 0.0 K/mm3 K/mm3 (0-0.3) Baso # (Auto) 0.0 K/mm3 K/mm3 (0.0-0.1) Abs Immat Gran (auto) 0.04 K/mm3 H K/mm3 (0.00-0.031) Absolute Neuts (auto) 5.9 K/mm3 K/mm3 (1.3-6.7) Absolute Nucleated RBC 0.0 K/mm3 K/mm3 (0.0-0.012) Nucleated RBC % 0.0 % % (0.0-0.2) RPR Pending Patient hx anesthesia problems: none Family hx anesthesia problems: none Results Review: All pre-operative results and documents have been reviewed as part of the pre-operative evaluation. [facility] Past Medical History Medical History Anxiety Back pain Depression History of stomach ulcers Surgical History Surgical History History of delivery History of gastric bypass History of mandibular surgery History of tonsillectomy Hx laparoscopic cholecystectomy Family History Family History Grandparent Family history of heart disease in male family member before age 55 Family history of malignant neoplasm of breast Family history of lung cancer Family history of malignant neoplasm of urinary bladder Family history of type 2 diabetes mellitus Hypertension Dementia Mother Cerebrovascular accident Hypertension Social History Social History Social History: Currently 5 weeks post- a vaginal delivery and . Years smoked: 10 Smoking status: Never smoker Tobacco type: cigarettes Alcohol intake: current Drinks per week: 1 Alcohol use details: social Substance use: former Substance use type: marijuana Last use: November 2021 Gender identity (if verbalized by the patient): Female Sexual Orientation (if Verbalized by the Patient): Straight or Heterosexual Spiritual care concerns: No Exam Day of Procedure 06/20/22 07:21
--- NOTE | 2022-06-20 08:00 | P.PNAN_ITS ---
Anes - Prog Note Post-Op Date/Time: 06/20/22 08:00 Vital Signs: Last Vital Signs Pulse 73 06/20/22 07:08 BP 114/69 06/20/22 07:08 O2 Del Method Room Air 06/20/22 06:38 Pain Score (VAS): 0 Laboratory Tests 06/20/22 06:21 06/20/22 06/20/22 06/20/22 06:21 06:21 06:21 WBC 8.7 RBC 3.91 L Hgb 8.3 L Hct 28.1 L MCV 71.9 L MCH 21.2 L MCHC 29.5 L RDW 17.3 H Plt Count 253 MPV 9.5 Immature Gran % (Auto) 0.5 Neut % (Auto) 67.8 Lymph % (Auto) 23.9 [place] % (Auto) 7.2 Eos % (Auto) 0.3 Baso % (Auto) 0.3 Lymph # (Auto) 2.09 [place] # (Auto) 0.6 Eos # (Auto) 0.0 Baso # (Auto) 0.0 Abs Immat Gran (auto) 0.04 H Absolute Neuts (auto) 5.9 Absolute Nucleated RBC 0.0 Nucleated RBC % 0.0 RPR Pending Blood Type A Negative Antibody Screen Negative Patient Feedback: Patient satisfied with anesthetic care.
--- NOTE | 2022-06-20 08:00 | WPDANLDPN2 ---
Anes-Prog Note L&D Date/Time: 06/20/22 08:00 Neuro status: Neuro function grossly intact. Vital Signs: Last Vital Signs Pulse 73 06/20/22 07:08 BP 114/69 06/20/22 07:08 O2 Del Method Room Air 06/20/22 06:38 Pain score (VAS): 0 Patient feedback: Patient satisfied with anesthetic care.
--- NOTE | 2022-06-20 08:40 | WPDOBADMIT ---
Obstetrics - Admit Note Admission Note: record reviewed. No pertinent additions to the history and/or any subsequent changes in the physical findings that are not consistent with the expected course of the were found. IOL, HX section for breech, hx vaginal delivery after and without complications, anticipate vaginal delivery. Additions to the history and/or subsequent changes in the physical findings follow. None.
[2022-06-20 09:02] LABS: Rapid Plasma Reagin Non-Reactive (NonReactive)
--- NOTE | 2022-06-20 12:07 | WPDANESEPP ---
Anes - Eval Pre Procedure Procedure: Labor epidural Date/Time: 06/20/22 12:07 Surgeon: Dipika Preop Diagnosis: Pain during labor Pre Op Diagnosis: Induction of Labor Patient Data Age: 26 Gender: F Height: 1.57 m Weight: 92 kg Last Vital Signs Temp 36.6 C 06/20/22 08:00 Pulse 59 L 06/20/22 12:01 BP 113/63 06/20/22 12:01 O2 Del Method Room Air 06/20/22 06:38 Allergies Allergy/AdvReac Type Severity Reaction Status Date / Time No Known Allergies Allergy Unknown Verified 12/04/20 13:47 Home Medications Medication Instructions Recorded Confirmed Type vit no.95-ferrous 1 tablet PO DAILY 09/17/20 06/20/22 History fumarate 28 mg-folic acid 800 mcg tablet () zolpidem 10 mg tablet 10 mg PO HS 05/29/22 05/29/22 History Laboratory Tests 06/20/22 06/20/22 06/20/22 06:21 06:21 06:21 WBC 8.7 K/mm3 K/mm3 (4.5-10.0) RBC 3.91 M/mm3 L M/mm3 (4.2-5.4) Hgb 8.3 g/dL L g/dL (12.0-15.0) Hct 28.1 % L % (37.0-47.0) MCV 71.9 fl L fl (80-100) MCH 21.2 pg L pg (26-34) MCHC 29.5 g/dl L g/dl (32-36) RDW 17.3 % H % (11.5-14.5) Plt Count 253 k/mm3 k/mm3 (150-375) MPV 9.5 fl fl (7.4-10.4) Immature Gran % (Auto) 0.5 % % (0-0.5) Neut % (Auto) 67.8 % % (45.5-73.1) Lymph % (Auto) 23.9 % % (18.3-44.2) [place] % (Auto) 7.2 % % (2.6-8.5) Eos % (Auto) 0.3 % % (0-4.4) Baso % (Auto) 0.3 % % (0.2-1.2) Lymph # (Auto) 2.09 K/mm3 K/mm3 (0.9-3.2) [place] # (Auto) 0.6 K/mm3 K/mm3 (0.1-0.6) Eos # (Auto) 0.0 K/mm3 K/mm3 (0-0.3) Baso # (Auto) 0.0 K/mm3 K/mm3 (0.0-0.1) Abs Immat Gran (auto) 0.04 K/mm3 H K/mm3 (0.00-0.031) Absolute Neuts (auto) 5.9 K/mm3 K/mm3 (1.3-6.7) Absolute Nucleated RBC 0.0 K/mm3 K/mm3 (0.0-0.012) Nucleated RBC % 0.0 % % (0.0-0.2) RPR Non-reactive (NonReactive) Blood Type A Negative Antibody Screen Negative Patient hx anesthesia problems: none Family hx anesthesia problems: none Results Review: All pre-operative results and documents have been reviewed as part of the pre-operative evaluation. [facility] Past Medical History Medical History Anxiety Back pain Depression History of stomach ulcers Surgical History Surgical History History of delivery History of gastric bypass History of mandibular surgery History of tonsillectomy Hx laparoscopic cholecystectomy Family History Family History Grandparent Family history of heart disease in male family member before age 55 Family history of malignant neoplasm of breast Family history of lung cancer Family history of malignant neoplasm of urinary bladder Family history of type 2 diabetes mellitus Hypertension Dementia Mother Cerebrovascular accident Hypertension Social History Social History Social History: Currently 5 weeks post- a vaginal delivery and . Years smoked: 10 Smoking status: Never smoker Tobacco type: cigarettes Alcohol intake: current Drinks per week: 1 Alcohol use details: social Substance use: former Substance use type: marijuana Last use: November 2021 Gender identity (if verbalized by the patient): Female Sexual Orientation (if Verbalized by the Patient): Straight or Heterosexual Spiritual care concerns: No Exam Day of Procedure 06/20/22 12:07 Patient weight: overweight Neurological: alert and oriented
[2022-06-20] MEDS: fentaNYL CITRATE INJ (*CRX) 100 MCG/2 ML VIAL 50 MCG IV PUSH (13:26)
[2022-06-20 15:18] LABS: Amphetamine Screen Urine Negative (Negative); Barbiturate Screen Urine Negative (Negative); Benzodiazepines Screen Urine Negative (Negative); Cannabinoid Screen Urine Negative (Negative); Cocaine Screen Urine Negative (Negative); Methadone Screen Urine Negative (Negative); Opiate Screen Urine Negative (Negative); Phencyclidine Screen Urine Negative (Negative)
--- NOTE | 2022-06-20 15:40 | PM.OBPRVD ---
OB - Delivery Note Procedure Delivery date: 06/20/22 Procedure: Events: Elective Induction of Labor Induction method: Per Pitocin Protocol Delivery augmentation: Rupture of Membranes Delivery monitor: External FHT and Internal Uterine Route of delivery: Episiotomy description: None Laceration Description: None Specimen: No Quantitative Blood Loss (ml): 110 Anesthesia type: Epidural Disposition: Floor [place] Baby Date of : 06/20/22 Time of : 15:26 Weeks of gestation at delivery: 40 gender: Female Weight (pounds): 8 Weight (ounces): 0 presentation: vertex position: Right Occiput Anterior Placenta delivery description: Spontaneous Cord Vessel Description: 3 Vessels, Clamped/Cut and Delayed Cord Clamping score one minute: 8 score five minutes: 9 Narrative: mom and baby stable and doing skin to skin
[2022-06-21] MEDS: ACETAMINOPHEN 325 MG TABLET 650 MG PO ×2 (00:45→06:12)
[2022-06-21 05:11] VITALS: BP 116/65; PULSE 57; RESP 18; TEMP 36.3; O2SAT 100
[2022-06-21 05:12] LABS: Hematocrit 27.3 % (37.0-47.0); Hemoglobin 8.1 g/dL (12.0-15.0)
[2022-06-21 07:35] VITALS: BP 88/55; PULSE 71; RESP 18; TEMP 36.6; O2SAT 99
--- NOTE | 2022-06-21 07:42 | PM.OBPNVD ---
OB - PN: Subj Subjective Date/time seen: 06/21/22 07:42 s/p vaginal delivery day 1 OB - PN: Obj Data Labs CBC & Chem 7: 06/21/22 03:03 Labs: Laboratory Results - last 24 hr 06/20/22 06/20/22 06/21/22 06:21 14:31 03:03 Hgb 8.1 L Hct 27.3 L Urine Opiates Screen Negative Urine Methadone Screen Negative Ur Barbiturates Screen Negative Ur Phencyclidine Scrn Negative Ur Amphetamine Screen Negative U Benzodiazepines Scrn Negative Urine Cocaine Screen Negative U Cannabinoids Screen Negative RPR Non-reactive OB - PN A/P Plan day: 1 Plan: routine care and discharge home Time Spent With Patient Time: Total time spent is greater than 50% in coordination of care (as documented) at patient's floor/unit and/or counseling patient: Review of Systems Review of Systems: All systems reviewed & are unremarkable except as noted in HPI and below Exam Const: General: cooperative, healthy appearing and comfortable
--- NOTE | 2022-06-21 07:45 | PM.OBDSVD ---
DS: Admitting Diagnosis Discharge Date 06/21/22 Admitting Diagnosis IOL, TOLAC OB - DS: Summary OB Procedures : None OB Procedures Intrapartum: Spontaneous Vag Delivery OB Procedures: : None Time Spent with Patient Time attestation: Total time spent providing and/or coordinating discharge services: DS: Data Data Completed and Pending Labs on day of discharge: Labs from last 24 hours 06/21/22 06/20/22 06/20/22 03:03 14:31 06:21 Hgb 8.1 L Hct 27.3 L Urine Opiates Screen Negative Urine Methadone Screen Negative Ur Barbiturates Screen Negative Ur Phencyclidine Scrn Negative Ur Amphetamine Screen Negative U Benzodiazepines Scrn Negative Urine Cocaine Screen Negative U Cannabinoids Screen Negative RPR Non-reactive Discharge Plan Discharge Attending physician on discharge: Elizabeth Bar Discharging Clinician: Linda Rome Patient Disposition: Home, Self-Care Activity: pelvic rest Diet: regular Patient Instructions: Antibiotic Form Stand Alone Forms: General Discharge Information Follow-up/Referrals: Linda Rome, CNM [Certified Nurse Grating Machine Operator] - 4 Weeks Discharge Medications: New polysaccharide iron complex 150 mg iron Capsule 150 mg PO BIDWM Qty: 60 0RF Continued PNV cmb#95-ferrous fumarate-FA [] 28 mg iron- 800 mcg Tablet 1 tablet PO DAILY Discontinued zolpidem 10 mg tablet 10 mg PO HS Date of admission: 06/20/22 05:09 Primary Care Provider: Peyman,Celeste Simons Admitting Provider: Elizabeth Bar Attending physician on admission: Elizabeth Bar Condition: Stable
[2022-06-21 08:30] VITALS: PULSE 71; RESP 18; O2SAT 99
[2022-06-21] MEDS: DOCUSATE SODIUM 100 MG CAPSULE PO (08:30)
[2022-06-21] MEDS: POLYSACCHARIDE IRON COMPLEX 150 MG CAPSULE PO (08:30)
[2022-06-21] MEDS: MULTIVIT/MIN/PREN/FOL AC/IRON TABLET 1 TAB PO (08:30)
[2022-06-21] MEDS: HYDROcodone/acetaminophen (*CRX) 5-325 MG TABLET 1 TAB PO ×2 (08:30→13:30)
--- NOTE | 2022-06-21 09:13 | WPDANLDPN2 ---
Anes-Prog Note L&D Date/Time: 06/21/22 09:13 Comfortable throughout: labor and delivery Neuraxial method: epidural Epidural/Spinal procedure site: clean & non-tender Neuro status: Neuro function grossly intact. Cardiovascular status: normal Respiratory status: normal Airway patency: baseline Mental status: baseline Post-Op hydration status: normal Vital Signs: Last Vital Signs Temp 36.3 C L 06/21/22 05:11 Pulse 57 L 06/21/22 05:11 Resp 18 06/21/22 05:11 BP 116/65 06/21/22 05:11 Pulse Ox 100 06/21/22 05:11 O2 Del Method Room Air 06/20/22 19:56 Pain score (VAS): 09/17 I/O: Intake & Output 06/20/22 06/21/22 06/21/22 23:59 07:59 15:59 Output Total 108 Balance -108 Post-procedural complaints: none Patient feedback: Patient satisfied with anesthetic care.
[2022-06-21 11:30] VITALS: BP 84/48; PULSE 66; RESP 18; TEMP 36.7; O2SAT 98
[2022-06-21 12:30] VITALS: PULSE 66; RESP 18; O2SAT 98
--- NOTE | 2022-06-21 14:05 | PC.NURSE ---
0840 - Introductions were made, then consulted with patient to assess needs related to . Mother led the conversation with her?plans to feed?her and the?experience so far going well with no pain. Resources provided for inpatient and outpatient services using a resource guide and mom/baby guide. Mother voiced understanding of information and during this time spit up old blood and RN assisted mother with her infant. Mother demonstrates latching her to her breast after calms and denies need for assistance with no questions or concerns. Reported to primary RN.
[2022-06-22 11:27] VITALS: BP 114/63; PULSE 82; RESP 18; TEMP 36.9; O2SAT 100
== END 2022-06-21 17:00 | disposition home or self-care (01) | DRG 807 ==
LOC: ANHLDR 05:14 → ANHOB2 18:38
PROVIDERS: Advanced Practice Midwife; Admitting Provider Obstetrics & Gynecology; PCP Nurse Practitioner Family; Visit Provider Obstetrics & Gynecology
DX: O34.219 Maternal care for unspecified type scar from previous cesarean delivery (principal); Z37.0 Single live birth; Z3A.40 40 weeks gestation of pregnancy
CPT/HCPCS: 36415; 80307; 85014; 85018; 85025; 86592; 86850; 86900; 86901; A9270; J2590; J2795; J3010; J7120

== ENCOUNTER → 2023-07-16 14:27 | Outpatient (CLI) | payer BC, SELFPAY ==
--- NOTE | ~2023-07-16 | CT_ITS ---
EXAMINATION: CT abdomen pelvis w con DATE: 07/16/2023 15:01 INDICATION: Generalized abdominal pain. TECHNIQUE: Computed tomography (CT) of the abdomen and pelvis was performed with 100 mL Omnipaque 350 intravenous contrast. Automated exposure control and iterative reconstruction technique were employe d. The dose-length product was 714.65 mGy-cm. COMPARISON: CT abdomen and pelvis 11/17/2020 FINDINGS: The visualized portions of the lung bases are clear without pneumonia or pleural effusion. The heart size is normal. No pericardial effusion. The liver and spleen are normal. There are changes of cholecystectomy. There are surgical changes of the stomach. The pancreas, adrenal glands, and kid neys are normal. There is a 4.1 cm cyst in left ovary. There are no dilated loops of bowel. The appen darling is normal. There are no pathologically enlarged lymph nodes. There is no free intraperitoneal flu id. There is mild thoracic and lumbar spondylosis. IMPRESSION: 1. 4.1 cm cyst in left ovary, likely a follicular cyst. Reviewed, dictated and finalized at location E. 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
== END ==
PROVIDERS: PCP Nurse Practitioner Family; Visit Provider Nurse Practitioner Family
DX: N83.202 Unspecified ovarian cyst, left side (principal)
CPT/HCPCS: 74177; Q9967

== ENCOUNTER 2025-06-02 12:08 | Outpatient (CLI) | payer BC, SELFPAY ==
--- NOTE | ~2025-06-02 | XR_ITS ---
XR thoracic spine 2V Indication: M54.9 - Dorsalgia, unspecified Comparison: None Findings: The vertebral heights are intact. No fracture or subluxation. The disc heights are intact. Soft tissues unremarkable Impression: No acute abnormality. Reviewed, dictated and finalized at location P. Impression: No acute abnormality.
--- NOTE | ~2025-06-02 | XR_ITS ---
XR lumbar spine 2-3V Indication: M54.9 - Dorsalgia, unspecified Comparison: None Findings: The vertebral heights are intact. No fracture or subluxation. The disc heights are intact. Soft tissues unremarkable Impression: No acute abnormality. Reviewed, dictated and finalized at location P. Impression: No acute abnormality.
--- NOTE | ~2025-06-02 | XR_ITS ---
XR_CERV2-3V_CR Indication: M54.9 - Dorsalgia, unspecified Comparison: None Findings: The vertebral heights are intact. No fracture or subluxation. The disc heights are intact. Soft tissues unremarkable Impression: No acute abnormality. Reviewed, dictated and finalized at location P. Impression: No acute abnormality.
== END 2025-06-02 12:09 | disposition home or self-care (01) ==
LOC: MICIMG 12:11
PROVIDERS: PCP Nurse Practitioner Family; Visit Provider Nurse Practitioner Family
DX: M54.9 Dorsalgia, unspecified (principal)
CPT/HCPCS: 72040; 72070; 72100

== ENCOUNTER 2025-06-16 09:47 | Outpatient (CLI) | payer BC, MEDICAID, SELFPAY ==
--- NOTE | ~2025-06-16 | US_ITS ---
EXAMINATION: US transvaginal, 06/16/2025 9:48 CDT HISTORY: N92.6 - Irregular menstruation, unspecified Comparison: None Technique: Valiente-scale and color Doppler images were obtained. Findings: Uterus: Uterus anteverted 8.4 x 5.1 x 5.5 cm. . Endometrium 1.3 cm, no increased flow. Right Ovary:Right ovary 2.1 x 2.1 x 2.3 cm, no adnexal mass, normal flow. Left Ovary: Left ovary 3.1 x 2.5 x 2.6 cm, no adnexal mass, normal flow, dominant follicle 2.2 x 1.8 cm. Free Fluid: None Impression: No etiology to explain the patient's symptoms. Reviewed, dictated and finalized at location P. Impression: No etiology to explain the patient's symptoms.
--- NOTE | ~2025-06-16 | MMUS_ITS ---
EXAMINATION: MM diagnostic barbara LT w janene, US breast LT complete INDICATION: 29-year old female; Nonfocal LEFT Breast pain with left axilla pain and swelling. COMPARISON: Baseline TECHNIQUE: Digital Breast Tomosynthesis CC, MLO and ML views of the Left breast and spot compression of the left axilla were obtained with computer-aided detection to assist in interpretation of the study. MAMMOGRAM FINDINGS: There are scattered areas of fibroglandular density. There are no suspicious masses, calcifications, architectural distortion or other abnormalities in Left breast. Prominent lymph node with fatty hilum in the left axilla. LEFT BREAST ULTRASOUND FINDINGS: Targeted ultrasound at the area of the patient's pain and left axilla was completed. No discrete cystic or solid lesions is seen in the left breast or the left axilla. A prominent lymph node in the left axilla with predominant fatty hilum correlates to the mammographic finding. IMPRESSION: No mammographic or sonographic evidence of malignancy in the LEFT breast or left axilla. RECOMMENDATIONS: 1. Medical management of patient's breast and axillary pain. 2. If the patient has high risk factors for developing breast cancers such as, but not limited to dense breasts, positive gene markers, first degree relative with breast cancer which is not tested for Gene markers, or greater than 20% lifetime risk of developing breast cancer, supplemental breast MRI screening (ultrasound if MRI is contraindicated), in addition to annual screening mammography, should be considered and discussed with the patient. BI-RADS 2, BENIGN Reviewed, dictated and finalized at location B. IMPRESSION: No mammographic or sonographic evidence of malignancy in the LEFT b reast or left axilla. RECOMMENDATIONS: 1. Medical management of patient's breast and axillary pain. 2. If the patient has high risk factors for developing breast cancers such as, but not limited to dense breasts, positive gene markers, first degree relative with breast cancer which is not tested for Gene markers, or greater than 20% li fetime risk of developing breast cancer, supplemental breast MRI screening (ult rasound if MRI is contraindicated), in addition to annual screening mammography , should be considered and discussed with the patient. BI-RADS 2, BENIGN
== END 2025-06-16 09:48 | disposition home or self-care (01) ==
LOC: MICIMG 09:47
PROVIDERS: PCP Nurse Practitioner Family; Visit Provider Nurse Practitioner Family
DX: N64.4 Mastodynia (principal); Z80.3 Family history of malignant neoplasm of breast; N92.6 Irregular menstruation, unspecified; M79.89 Other specified soft tissue disorders; R10.20 Pelvic and perineal pain unspecified side
CPT/HCPCS: 76641; 76830; 77061; 77065; G0279

== ENCOUNTER 2025-07-06 01:45 | Day surgery (SDC) | payer BC, OTHER, MEDICAID, SELFPAY ==
[2025-06-27 12:44] VITALS: BMI 35.0
--- OUTSIDE RECORDS SUMMARY | 2025-07-06 01:49 | XMS_ITS | Data Portability ---
Author Organization [facility] Address [address] [place] [address] Assessment No assessment recorded. Plan of Treatment Reminders Order Date Submit Date Provider Last Modified By Organization Details Last Modified Time Details Appointments None recorded. Lab CMP, serum or plasma 2015 016 [facility], [address], [address], [place], [address], 6 04:31:21 dhea-sulfa te, serum 2015 016 [facility], [address], [address], [place], [address], 6 04:31:21 HbA1c (hemoglobi n A1c), blood 2015 016 [facility], [address] [facility], [address], [place], [address], 6 04:31:21 lipid panel, serum 2015 016 [facility], [address], [address], [place], [address], 6 04:31:21 testostero ne, total, serum 2015 016 [facility], [address] [address], [address], [place], [address], 6 04:31:21 TSH, ultra-sens itive, serum 2015 016 [facility], [address] Yud[address] Denson, [address], [address], 6 04:31:13 urinalysis , dipstick 2015 016 DBA_PATCH _[id number] In-Office Order, Internal Use Only DO Not Attach Compendium DO Not Attach Compendium, Do Not Delete/merge, [id number] 6 04:30:57 test, urine 2015 016 DBA_PATCH _[id number] In-Office Order, Internal Use Only DO Not Attach Compendium DO Not Attach Compendium, Do Not Delete/merge, [id number] 6 04:30:50 test, urine 2014 015 [email or web address] In-Office Order, Internal Use Only DO Not Attach Compendium DO Not Attach Compendium, Do Not Delete/merge, [id number] 5 16:33:[address]/dietiti an referral 2015 016 [facility]/ 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 Surgeries None recorded. Imaging None recorded. Medication Orders calcium 600 mg (as carbonate) -vitamin D3 20 mcg (800 unit) tablet [id number] [address], [place], [place], [phone], 6 04:31:12 Vitamin tablet 2015 016 [id number], [address], [place], [place], [phone], 6 04:31:03 Nexplanon 68 mg subdermal implant 2014 015 [email or web address] Not available 5 12:08:57 Patient TargetsNo targets recorded. 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 Refer ral for Obesity Referring Physician: Gordo Chacon, SAP BOBJ DEVELOPER, Encounter Date: 07/15/2016 Results Created Date Observation Date Name Description Value Unit Range Abnormal Flag Note LastModifiedBy Organization Detail LastModifiedTime 07/15/20 16 07/15/2016 pregn sofiya test, urine HCG negati ve Not Available In-Office Order Internal Use Only DO Not Attach Compendium DO Not Attach Compendium, Do Not Delete/merge, [id number] 07/15/2016 16:24:56 07/15/20 16 07/15/2016 urina lysis , dipst ick Leukocytes Negati ve Not Available In-Office Order Internal Use Only DO Not Attach Compendium DO Not Attach Compendium, Do Not Delete/merge, [id number] 07/15/2016 16:23:59 07/15/20 16 07/15/2016 urina lysis , dipst ick Nitrite negati ve Not Available In-Office Order Internal Use Only DO Not Attach Compendium DO Not Attach Compendium, Do Not Delete/merge, [id number] 07/15/2016 16:23:59 07/15/20 16 07/15/2016 urina lysis , dipst ick Urobilinogen .2 Not Available In-Of fice Order Internal Use Only DO Not Attach Compendium DO Not Attach Compendium, Do Not Delete/merge, [id number] 07/15/2016 16:23:59 07/15/20 16 07/15/2016 urina lysis , dipst ick Protein Negati ve Not Available In-Office Order Internal Use Only DO Not Attach Compendium DO Not Attach Compendium, Do Not Delete/merge, [id number] 07/15/2016 16:23:59 07/15/20 16 07/15/2016 urina lysis , dipst ick pH 7.5 Not Available In-Office Order Internal Use Only DO Not Attach Compendium DO Not Attach Compendium, Do Not Delete/merge, [id number] 07/15/2016 16:23:59 07/15/20 16 07/15/2016 urina lysis , dipst ick Blood Negati ve Not Available In-Office Order Internal Use Only DO Not Attach Compendium DO Not Attach Compendium, Do Not Delete/merge, [id number] 07/15/2016 16:23:59 07/15/20 16 07/15/2016 urina lysis , dipst ick Specific Davis 1.020 Not Available In-Off ice Order Internal Use Only DO Not Attach Compendium DO Not Attach Compendium, Do Not Delete/merge, [id number] 07/15/2016 16:23:59 07/15/20 16 07/15/2016 urina lysis , dipst ick Ketone Negati ve Not Available In-Office Order Internal Use Only DO Not Attach Compendium DO Not Attach Compendium, Do Not Delete/merge, [id number] 07/15/2016 16:23:59 07/15/20 16 07/15/2016 urina lysis , dipst ick Bilirubin Negati ve Not Available In-Office Order Internal Use Only DO Not Attach Compendium DO Not Attach Compendium, Do Not Delete/merge, [id number] 07/15/2016 16:23:59 07/15/20 16 07/15/2016 urina lysis , dipst ick Glucose Negati ve Not Available In-Office Order Internal Use Only DO Not Attach Compendium DO Not Attach Compendium, Do Not Delete/merge, [id number] 07/15/2016 16:23:59 07/15/20 16 07/15/2016 urina lysis , dipst ick Appearance Slight ly Cloudy Not Available In-Office Order Internal Use Only DO Not Attach Compendium DO Not Attach Compendium, Do Not Delete/merge, [id number] 07/15/2016 16:23:59 07/15/20 16 07/15/2016 urina lysis , dipst ick Color Yellow Not Available In-Office Order Internal Use Only DO Not Attach Compendium DO Not Attach Compendium, Do Not Delete/merge, [id number] 07/15/2016 16:23:59 06/22/20 15 06/22/2015 pregn sofiya test, urine HCG negati ve Not Available In-Office Order Internal Use Only DO Not Attach Compendium DO Not Attach Compendium, Do Not Delete/merge, [id number] 06/22/2015 16:47:48 09/21/19 16 09/22/2015 HCG, intac t + beta subun it, quant , serum or plasm a HCG,beta subunit,qnt, serum <1 mIU/m L FEMAL E (NON- PREGN ANT) 0 - 5 (POST MENOP AUSAL ) 0 - 8 FEMAL E (PREG NANT) WEEKS OF GESTA TION 3 6 - 71 4 10 - 750 5 318 - 8095 6 147 - 03076 7 0456 -8213 63 8 13617 -2946 71 9 17306 -7119 10 10 07052 -4214 77 12 51407 -8959 12 14 11057 - 32528 15 83377 - 71061 16 5283 - 31060 17 1424 - 12479 18 8009 - 87314 ALEXANDRA ECLIA METHO DOLOG Y Not Available [facility] [address], [place], [address], 09/22/2015 10:23:32 Result Notes None recorded. Problems No Known Problems Procedures Surgical History Date Name Laterality Status Provider Name and Address Organization Details Recorded Time 5 Control Implant Insertion completed Gordo Chacon [facility] 06/22/2015 17:17:35 5 Caesarean Section completed Michelle Lu MA [facility] 06/22/2015 16:43:00 Imaging Results None recorded. Procedure Notes None recorded. Medical Equipment None Reported. Allergies No known drug allergies Medications Name Sig Start Date Stop Date Status Note LastModified by Organization Details LastModified Time Vitamin tablet Take 1 tablet every day by oral route with meals. 2015 active Not Available Not Available Not Avai lable Nexplanon 68 mg subdermal implant Inject 1 implant by subcutaneous route. 2014 active Not Available Not Available Not Avai lable calcium 600 mg (as carbonate) -vitamin D3 20 mcg (800 unit) tablet Take 1 tablet twice a day by oral route. 2015 active Not Available Not Available Not Avai lable Vitals Date Recorded Body height Body mass index (BMI) Body weight Systolic And Diastolic Provider Name and Address Organization Details Last Updated DateTime 06/22/2015 154.94 cm 42.9 kg/m2 078456.46 799 g 114/70 mm[Hg] Michelle Lu [place] 06/22/2015 16:50:04 Date Recorded Body weight Body height Body mass index (BMI) Provider Name and Address Organization Details Last Updated DateTime 07/15/2016 517801.32 g 154.94 cm 46.7 kg/m2 Mona Anderson [place] 07/15/2016 16:13:11 Social History Question Answer Notes LastModified by Organizat ion Details LastModified Time Tobacco Smoking Status Current Every Day Smoker Michelle Lu MA null, [place] 06/22/2015 16:47:25 Do You Have An Advance Directive? No Information not available 06/22/2015 Is Blood Transfusion Acceptable In An Emergency? Yes Blood Type A Negative Information not available 06/22/2015 What Is Your Level Of Caffeine Consumption? Occasional Information not available 06/22/2015 How Much Tobacco Do You Chew? None Information not available 06/22/2015 What Type Of Diet Are You Following? REGULAR Information not available 06/22/2015 Which Illicit Or Recreational Drugs Have You Used? None Information not available 06/22/2015 Education 10 Information no t available 06/22/2015 Live Alone Or With Others? With Others Information not available 06/22/2015 How Many Children Do You Have? 1 Information not available 06/22/2015 Performs Monthly Self-breast Exam? Yes Information not available 06/22/2015 Do You Use Protection During Sex? No Information not available 06/22/2015 What Is Your Relationship Status? Information not available 06/22/2015 Seat Belts Used Routinely Yes Information not available 06/22/2015 Are You Sexually Active? Yes Information not available 06/22/2015 At What Age Did You Start Smoking Tobacco? 14 Information not available 06/22/2015 How Much Tobacco Do You Smoke? 0.25 PPD Information not available 06/22/2015 General Stress Level Low Information not available 06/22/2015 Do You Use Sunscreen Routinely? No Information not available 06/22/2015 How Many Years Have You Smoked Tobacco? 5 Information not available 06/22/2015 Sex: Unknown Functional Status Question Answer Note LastModified by Organizat ion Details LastModified Time What is your level of alcohol consumption? Occasional Information not available 06/22/2015 Are you currently employed? 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 None Information not available 06/22/2015 Mental Status None recorded. Family History Relationship Description Onset Age of this Age Resolved Age Notes LastModified by Organization Details LastModified Time Maternal Grandmother Malignant neoplasm of urinary bladder [email or web address] Not available 2014 16:54:01 Paternal Grandmother Malignant neoplasm of breast [email or web address] Not available 2014 16:54:01 Paternal Grandmother Heart disease [email or web address] Not available 2014 16:54:01 Maternal Grandfather Diabetes mellitus [email or web address] Not available 2014 16:54:01 Maternal Grandfather Hypercholest erolemia [email or web address] Not available 2014 16:54:01 Paternal Grandfather Malignant neoplasm of lung [email or web address] Not available 2014 16:54:01 Medical History Condition Response Heart Problems N Other N Breast Cancer N Kidney or Bladder Problems N Thyroid Problems N Lung Disease N Depression N GI Problems N Acne N Eating Disorder N Breast Problem N Anemia N Anesthesia Complications N Headaches/Migraines N Anxiety Disorder N Ovarian Cancer N Diabetes N Blood Transfusions N Arthritis N Infertility N Polyps N Acid Reflux (GERD) N Cancer N Stroke N Abuse/Domestic Violence N Asthma N Endometriosis N High Cholesterol N Hepatitis N Heart Disease N Fibromyalgia N Pre-Eclampsia N Hypertension N Osteoporosis N Kidney Disease N Gynecological History Statement/Question Response On BCP's at Conception? N STIs/STDs N HPV Vaccine N Age at Menarche 13 Current Control Method Implant Age at First Child 19 Sexually Active? Y Menses Monthly N Sexual Problems? N LMP Unknown Desired Control Method None Obstetrics History GPAL:G 1 P 1 0 0 1 Type Value Multiple Births 0 Full Term 1 Induced 0 Spontaneous 0 Premature 0 Living 1 Ectopics 0 Total 1 Past Encounters Encounter ID Performer Location Encounter Start Date Encounter Closed Date Diagnosis/Indication Diagnosis SNOMED-CT Code Diagnosis ICD10 Code Diagnosis IMO Codes Diagnosis Note [id number] MD Veronica Oh (SAP BOBJ DEVELOPER) [address] [place] [address] 06/22/2015 16:09:05 06/26/2015 13:41:05 Implantation of subcutaneous contraceptive 556051565 Z30.9 19 year old s/p at [facility] presently on oral contracept ion. Wishes to begin nexplanon for contracept ion. Discussed pros and cons of device use. Patient very much wishes device inserted VENKATA. [id number] MD Veronica Oh (SAP BOBJ DEVELOPER) [address] [place] [address] 07/15/2016 15:49:24 07/15/2016 16:53:19 Contraception care 595445338 Z30.40 Surveillan ce of subcutaneous contraceptive implant 411756822 Z30.46 Family facundo nning surveillance 126740897 Z30.09 Obesity 377093020 E66.9 Health Concerns Section Related Observation LastModified by Organization Detai ls LastModified Time None Recorded Concern Status LastModified by Organization Details LastModified Time None Recorded Advance Directives Directive N: Payers Insurance Date Sequence Insurance Name Policy Number Policy Hawkins Covered Member ID Hawkins Member ID Guarantor Name 07/12/2015 1 [place] [id number] Sj Brice [id number] 07/13/2016 2 [place] Ansley Maldonado [id number] Ansley Brice 07/15/2016 1 [place] [id number] Sj Brice [id number] Br[address] Notes Date Note Type Note Provider Name and Address Organization Details Recorded Time 07/15/2016 text/html OCP CheckReporte d by PatientHPIFor associated symptoms, patient reportsbtb menses(amenorrheic with nexplanon). 20yo WF with nexplanon (amenorrheic) in place who presents for consultation on contraception and concern over weight gain. Has gained 20+ lbs over last 1 year with c/o fatigue. Notes that she has a fairly balanced diet but does not exercise. 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 Status 06/22/20 15 1 CLOSED Fetus Data First Name Last Name Admitted to NICU Weight (g) Sex Living Outcome Pediatric Complications Fetus ID Race Codes Race Delivery Type 3401.94 M Full Term [id number] Lewis Calculation Initial Lewis Date Initial Exam Date Initial Exam Provider Initial Ultrasound Date Last Menstrual Period Date Ultra Sound Weeks Gestation 0 Eighteen To Twenty Week Lewis Update Ultra Sound Date Fundal Height At Umbil Quickening Date Ultra Sound Latest Weeks Gestation Final Lewis Confirmed By Final Lewis Confirmed Date Final Lewis Date Ultra Sound Latest Days Gestation 0 0 Menstrual History Last Menstrual Date Menses Monthly On Bcp Conception Prior Menses Frequency Hcg Plus Date Menarche Onset Age Delivery Information Delivery Date Delivery Type Labor Anesthesia Weeks Gestation Incision Type Labor Labor Length Hrs Delivered By Post Complications Tubal Sterilization Discharge Date Comments 5 Regional-Sp inal 39 Discharge Information Feeding Method Contraceptive Method Maternal HG B and HCT Levels
--- OUTSIDE RECORDS SUMMARY | 2025-07-06 01:49 | XMS_ITS | Data Portability ---
Author Organization [facility] Address [address] [place] [address] Assessment Encounter Date Assessment Date Assessment LastModified by Organization Details LastModified Time 06/05/2022 06/05/2022 Patient is _38__weeks . Discussed plan. Not available 06/05/2022 13:01:56 06/12/2022 06/12/2022 Patient is __39_weeks . Discussed plan. [email or web address] Not available 06/12/2022 12:53:49 Plan of Treatment Reminders Order Date Submit Date Provider Last Modified By Organization Details Last Modified Time Details Appointments None recorded. Lab progesteron e, serum 2022 023 [facility] (Lab), [address], [place], [address], 3 14:33:28 estradiol, serum 2022 023 [facility] (Lab), [address], [place], [address], 3 14:33:27 lh + FSH, serum 2022 023 [facility] (Lab), [address], [place], [address], 3 14:33:27 testosteron e, free, serum 2022 023 [facility] (Lab), [address], [place], [address], 18:13:51 Referral None recorded. Procedures None recorded. Surgeries None recorded. Imaging US, pelvis 2022 023 [email or web address], [address], [place], [address], 18:44:36 US, transvagina l 2022 023 [email or web address], [address], [place], [address], 18:44:36 US, pelvis, complete 2022 023 [address], [address], [place], [address], 08:23:49 Medication Orders None recorded. Patient TargetsNo targets recorded. Patient InstructionsNo instructions recorded. Reason for Referral None Reported. Results Created Date Observation Date Name Description Value Unit Range Abnormal Flag Note LastModifiedBy Organization Detail LastModifiedTime 05/22/2005/22/2022 CULTU RE: GROUP B STREP SCREE N result report SEE RESULT S BELOW Test: Cultu re: Group B Strep Scree n - Vagin al/Re ctal Speci men Sourc e: Vagin a/Rec garry Speci men Type: Vagin al/Re ctal Speci men Date: 2021 3:40 PM Resul t Date: 2021 10:55 AM Resul t Statu s: Final resul t Abnor mal: No Resul ting Lab: [facility] [address] [facility] [address] Tel: [phone] CULTU RE ----- ----- ----- --- No Group B strep isola larisa at 2 days (kvng ctive broth enhan cemen t) Not Available [facility] Infectious Disease [address] [facility], [place], [address], 05/25/2022 11:57:40 08/12/20 23 08/12/2023 ESTRA DIOL estradiol 154.0 pg/mL This assay was perfo rmed using [employer] reage nts and test kits. Value s obtai sophie with other assay metho ds or kits canno t be used inter [facility] . Femal e Estra diol Range s: Folli cular phase 12.4- 233 pg/mL Ovula tion phase 41.0- 398 pg/mL Lutea l phase 22.3- 341 pg/mL Postm enopa usal< 5-138 pg/mL Healt hy Pregn ant Women 1st Trime ster1 54-32 43 pg/mL 2nd Trime ster1 561-2 1280 pg/mL 3rd Trime ster8 525-> 22336 pg/mL Not Available [facility] (Lab) [address] [place], [address], 08/17/2023 18:13:50 08/12/20 23 08/12/2023 PROGE STERO NE progesterone 14.20 NG/mL This assay was perfo rmed using [employer] reage nts and test kits. Value s obtai sophie with other assay metho ds or kits canno t be used inter [facility] . Femal e Proge stero ne Range s: Folli cular phase 0.06- 0.89 ng/mL Ovula tion phase 0.12- 12.00 ng/mL Lutea l phase 1.83- 23.90 ng/mL Postm enopa usal< 0.05- 0.13 ng/mL Healt hy Pregn ant Women 1st Trime ster1 1.0-4 4.30 2nd Trime ster2 5.40- 83.30 3rd Trime ster5 8.70- 214.0 0 Not Available [facility] (Lab) [address] [place], [address], 08/17/2023 18:13:50 08/12/20 23 08/12/2023 FSH / LH FSH 2.6 mIU/m L This assay was perfo rmed using [employer] reage nts and test kits. Value s obtai sophie with other assay metho ds or kits canno t be used inter [facility] . Femal es Folli cular : 3.5-1 2.5 mIU/m L Ovula tion: 4.7-2 1.5 mIU/m L Lutea l: 1.7-7 .7 mIU/m L Postm enopa use: 25.8- 134.8 mIU/m L Not Available [facility] (Lab) [address] [facility], [place], [address], 08/17/2023 18:13:50 08/12/20 23 08/12/2023 FSH / LH LH 6.6 mIU/m L This assay was perfo rmed using [employer] reage nts and test kits. Value s obtai sophie with other assay metho ds or kits canno t be used inter [facility] . Femal es Mid-F ollic ular: 2.4-1 2.6 mIU/m L Mid-C ycle: 14.0- 95.6 mIU/m L Mid-L uteal : 1.0-1 1.4 mIU/m L Postm enopa use: 7.7-5 8.5 mIU/m L Not Available [facility] (Lab) [address] [place], [address], 08/17/2023 18:13:50 08/12/20 23 08/12/2023 TESTO STERO NE, FREE testosterone free 1.2 pg/mL 0.2-5. 0 The bev ntrat ion of free testo stero ne is deriv ed from a krystian davidson al model using total testo stero ne by LCMSM S, sex hormo ne rosales ng larryu marcio and album in. This test was devel oped and its amanda tical perfo rmanc e magali cteri stics have been deter mined by [facility] Wade ls [place] DIANDRA Ragland. It has not been clear ed or appro izabella by the U.S. Food and Drug Admin istra tion. This assay has been valid ated pursu ant to the CLIA regul ation s and is used for clini chandler purpo ses. Perfo rming Organ izati on Infor noe n: Site ID: AMD Name: Tucker stockton Addre ss: [id number] [facility] [employer] [place], [place] Direc tor: Robinson Camilo MD PhD Not Available [facility] (Lab) [address], [place], [address], 08/17/2023 18:13:51 05/28/20 22 05/28/2022 US, obste tric, follo w-up No observ ation record ed. [facility] [address], [place], [address], 05/28/2022 16:30:03 05/28/20 22 05/28/2022 US, obste tric, follo w-up No observ ation record ed. [email or web address] [facility], [place], [address], 05/28/2022 14:37:19 05/29/20 22 05/29/2022 non-s tress test No observ ation record ed. [address], [place], [address], 05/30/2022 15:08:04 08/12/20 23 08/12/2023 US, pelvi s No observ ation record ed. [facility] [address], [place], [address], 08/12/2023 13:12:26 08/12/20 23 08/12/2023 US, trans sheryl al No observ ation record ed. [facility] [address], [place], [address], 08/12/2023 13:12:36 12/0508/12/2023 US, juan f s No observ ation record ed. JOY Segura [address], [place], [address], 08/16/2023 13:59:11 Result Notes None recorded. Problems Name Problem SNOMED Code Status Onset Date Resolution Date Notes Provider Name and Address Organization Details Recorded Time Deliveri es by [id number] Completed TOLAC - schd 1 with KP @ 06:00 Dell Becerra null, [facility] 2 13:30:09 Gestatio nal diabetes mellitus 55695373 Completed Dell Hernan null, [facility] 2 13:30:09 Vaginal delivery followin g previous section 897010190 Completed Porsha Sweeneyneolle ehl null, [facility] 2 16:01:33 Attentio n deficit hyperact ivity disorder 869752589 Completed Porsha Vazquez ehl null, [facility] 2 16:01:33 History of bariatri c surgical procedur e 165038022 Completed 2017, lost 100# Porsha Shukla ehl null, [facility] 2 16:01:33 delivery - delivere d [id number] Completed breech Porsha Vazquez ehl null, [facility] 2 16:01:33 Mixed anxiety and depressi ve disorder 039617671 Completed lamotrigi ne, prozac - d'savannah consideri ng restart Porsha Sweeneynoelle ehl null, [facility] 2 16:01:33 Epigastr ic pain 75465550 Completed radiates to back, status post cholecyst ectomy, consider imaging Porsha Vazquez ehl null, [facility] 2 16:01:33 Hyperthy roidism 60524257 Completed low TSH, normal T4 - repeat 2 months (01/03) Porsha Shukla ehl null, [facility] 2 16:01:33 Subchori onic hematoma 084625588 Completed [id number] Porshaross Garlandjamar bridgerl null, [facility] 2 16:01:33 Pregnanc y 63062830 Completed 201911/09/2020 Porsha Shukla ehl null, [facility] 2 16:01:41 Pregnanc y 69426085 Completed 202107/09/2022 Porsha Shukla ehl null, [facility] 2 16:01:41 Anemia 009106900 Completed 2021 had history already on supplemen tation Porshaross Garlandjamar bridgerl null, [facility] 2 16:01:33 Problem Notes None recorded. Procedures Surgical History Date Name Laterality Status Provider Name and Address Organization Details Recorded Time 11/05/19 22 Date of Last Pap Smear completed [facility] 11/05/2021 12:48:46 04/08/20 18 Jaw arthroscopy/surge ry completed [facility] 03/08/2020 18:03:40 03/02/20 18 laparoscopic sleeve gastrectomy completed [facility] 11/05/2021 12:49:34 05/02/20 15 section completed [facility] 03/08/2020 18:02:26 09/08/19 12 Tonsillectomy completed [facility] 09/17/2021 12:57:03 Imaging Results None recorded. Procedure Notes None recorded. Medical Equipment None Reported. Allergies No known drug allergies Medications Name Sig Start Date Stop Date Status Note LastModified by Organization Details LastModified Time fluoxetine 40 mg capsule Take 1 capsule every day by oral route. 04/18 completed Not Available Not Available Not Available amoxicillin 500 mg capsule 05/29 completed Not Available Not Available Not Available lamotrigine 200 mg tablet TAKE 1 TABLET BY MOUTH EVERY DAY active Not Available Not Available No t Available ampicillin 500 mg capsule TAKE 1 CAPSULE BY MOUTH EVERY 12 HOURS FOR 10 DAYS 01/30 completed Not Available Not Available Not Available ondansetron HCl 4 mg tablet take one tablet by oral route every 4-6 hours as needed 11/09 completed Not Available Not Available Not Available dextroamphe tamine-amph etamine 10 mg tablet TAKE 1 TABLET BY MOUTH TWICE DAILY 04/18 completed Not Available Not Available Not Available clonazepam 0.5 mg tablet TAKE 1/2 OR 1 OR 2 TABLETS BY MOUTH UP TO A MAX OF THREE TIMES DAILY active Not Available Not Available No t Available terconazole 0.8 % vaginal cream Insert 1 applicato rful every day by vaginal route for 3 days. 05/29 completed Not Available Not Available Not Available acetaminoph en 500 mg tablet 04/03 completed Not Available Not Available Not Available lamotrigine 25 mg tablet TAKE 1 TABLET BY MOUTH DAILY FOR 2 WEEKS THEN 2 TABLETS DAILY FOR 2 WEEKS THEN 4 TABLETS active Not Available Not Available No t Available bupropion HCl 100 mg tablet TAKE 1 TABLET BY MOUTH THREE TIMES DAILY DIRECTED 09/17 completed Not Available Not Available Not Available amoxicillin 875 mg tablet 01/30 completed Not Available Not Available Not Available famotidine 20 mg tablet 04/18 completed Not Available Not Available Not Available dextroamphe tamine-amph etamine ER 20 mg 24hr capsule,ext end release TAKE 1 CAPSULE BY MOUTH EVERY DAY active Not Available Not Available No t Available cephalexin 500 mg capsule 08/05 completed Not Available Not Available Not Available pantoprazol e 40 mg tablet,starr yed release TAKE 1 TABLET BY MOUTH TWICE DAILY 04/18 completed Not Available Not Available Not Available cyanocobala min (vit B-12) 1,000 mcg/mL injection solution 11/05 completed Not Available Not Available Not Available fluoxetine 10 mg capsule TAKE 1 CAPSULE BY MOUTH DAILY 11/052 completed Not Available Not Available Not Available dextroamphe tamine-amph etamine ER 10 mg 24hr capsule,ext end release TAKE 1 CAPSULE BY MOUTH EVERY DAY 08/05 completed Not Available Not Available Not Available zolpidem 5 mg tablet TAKE 1 TABLET BY MOUTH AT BEDTIME FOR INSOMNIA 06/12 completed Not Available Not Available Not Available ergocalcife rol (vitamin D2) 1,250 mcg (50,000 unit) capsule active Not Available Not Available Not Available zolpidem 10 mg tablet TAKE 1 TABLET BY MOUTH AT BEDTIME NEEDED 08/05 completed Not Available Not Available Not Available methylpredn isolone 4 mg tablets in a dose pack FOLLOW PACKAGE DIRECTION S 08/05 completed Not Available Not Available Not Available ondansetron 4 mg disintegrat ing tablet 04/18 completed Not Available Not Available Not Available fluoxetine 20 mg capsule TAKE 1 CAPSULE BY MOUTH EVERY DAY 11/05 completed Not Available Not Available Not Available lamotrigine 100 mg tablet TAKE 1 TABLET BY MOUTH EVERY DAY active Not Available Not Available No t Available escitalopra m 10 mg tablet Take 1 tablet every day by oral route. 04/03 completed Not Available Not Available Not Available aripiprazol e 5 mg tablet TAKE 1 TABLET BY MOUTH EVERYDAY AT BEDTIME 08/05 completed Not Available Not Available Not Available bupropion HCl XL 300 mg 24 hr tablet, extended release 08/05 completed Not Available Not Available Not Available Wellbutrin XL 150 mg 24 hr tablet, extended release Take 1 tablet every day by oral route. 06/12 completed Not Available Not Available Not Available nitrofurant oin monohydrate /macrocryst als 100 mg capsule Take 1 capsule every 12 hours by oral route. 04/18 completed Not Available Not Available Not Available BD Integra Syringe 3 mL 25 gauge x 5/8 USE DIRECTED TO INJECT B12 11/05 completed Not Available Not Available Not Available Prozac 11/05 completed Not Available Not Available Not Available Vyvanse 60 mg capsule TAKE 1 CAPSULE BY MOUTH EVERY DAY 08/05 completed Not Available Not Available Not Available Vyvanse 40 mg capsule TAKE 1 CAPSULE BY MOUTH EVERY DAY 08/05 completed Not Available Not Available Not Available Slow Fe 142 mg (45 mg iron) tablet,exte nded release Take 1 tablet every day by oral route as directed. 08/05 completed Not Available Not Available Not Available OneTouch Verio test strips 11/09 completed Not Available Not Available Not Available DHA 200 mg capsule 08/05 completed Not Available Not Available Not Available OneTouch Verio Flex Meter 11/09 completed Not Available Not Available Not Available OneTouch Delica Plus Lancet 33 gauge 11/09 completed Not Available Not Available Not Available Vitals Date Recorded Body height Body mass index (BMI) Body weight Systolic And Diastolic Provider Name and Address Organization Details Last Updated DateTime 06/05/2022 154.31 cm 39.4 kg/m2 18447.620 59 g 106/71 mm[Hg] Janelle Pryor [facility] 06/05/2022 12:50:23 Date Recorded Body height Body mass index (BMI) Body weight Systolic And Diastolic Provider Name and Address Organization Details Last Updated DateTime 06/12/2022 154.31 cm 39.1 kg/m2 12390.435 85 g 105/68 mm[Hg] Janelle Pryor [facility] 06/12/2022 12:43:55 Date Recorded Body height Body mass index (BMI) Body weight Systolic And Diastolic Provider Name and Address Organization Details Last Updated DateTime 08/05/2023 154.31 cm 33.1 kg/m2 83287.07 g 101/69 mm[Hg] Lori Edouard [facility] 08/05/2023 12:52:26 Date Recorded Systolic And Diastolic Provider Name and Address Organization Details Last Updated DateTime 08/13/2023 118/78 mm[Hg] Angeles Rivera, [facility]- [address], [place], [address], [facility] 08/14/2023 13:50:28 Date Recorded Body height Body mass index (BMI) Body weight Systolic And Diastolic Provider Name and Address Organization Details Last Updated DateTime 08/13/2023 154.31 cm 32.8 kg/m2 50990.89 g 139/85 mm[Hg] Lori Javan [facility] 08/13/2023 12:40:51 Social History Question Answer Notes LastModified by Organizat ion Details LastModified Time Tobacco Smoking Status Former Smoker Janelle Pryor areli, [facility] 05/01/2020 12:22:25 If You Are , What Was Your Level Of Alcohol Consumption Prior To ? Occasional [email or web address] Information not available 01/30/2022 Are You Blind Or Do You Have Difficulty Seeing? No [email or web address] Information not available 09/17/2021 What Is Your Level Of Caffeine Consumption? Occasional Information not available 09/28/2020 In The 14 Days Before Symptom Onset, Have You Had Close Contact With A Laboratory-confi rmed COVID-19 While That Case Was Ill? No Information not available 08/05/2023 In The 14 Days Before Symptom Onset, Have You Had Close Contact With A Person Who Is Under Investigation For COVID-19 While That Person Was Ill? No Information not available 08/05/2023 Have You Been To An Area Known To Be High Risk For COVID-19? No Information not available 08/05/2023 Are You Deaf Or Do You Have Serious Difficulty Hearing? No [email or web address] Information not available 09/17/2021 What Type Of Diet Are You Following? REGULAR [email or web address] Information not available 09/17/2021 Which Illicit Or Recreational Drugs Have You Used? Marijuana [email or web address] Information not available 03/08/2020 What Was The Date Of Your Most Recent Tobacco Screening? 06/12/2022 [email or web address] Information not available 06/12/2022 At What Age Did You Start Smoking Tobacco? 14 [email or web address] Information not available 09/28/2020 How Much Tobacco Do You Smoke? No 2 To 5 Cigarettes A Day [email or web address] Information not available 03/08/2020 How Many Years Have You Smoked Tobacco? 10 [email or web address] Information not available 09/28/2020 Do You Have Difficulty Walking Or Climbing Stairs? No [email or web address] Information not available 11/05/2021 How Many Years Have You Used E-cigarettes Or Vape? 1 [email or web address] Information not available 09/28/2020 Sex: Unknown Functional Status Question Answer Note LastModified by Organizat ion Details LastModified Time Do you or have you ever used any other forms of tobacco or nicotine? Yes [email or web address] Information not available 09/28/2020 What is your level of alcohol consumption? None Information not available 01/30/2022 Do you or have you ever used smokeless tobacco? Never used smokeless tobacco Information not available 05/01/2020 Are you able to walk independently without assistance or assistive devices? YESWOREST [email or web address] Information not available 09/17/2021 Are you able to care for yourself independently? Yes [email or web address] Information not available 11/05/2021 Do you have difficulty dressing, bathing, grooming, or toileting? No [email or web address] Information not available 11/05/2021 Do you or have you ever used e-cigarettes or vape? Former user of electronic cigarettes [email or web address] Information not available 05/01/2020 What is your exercise level? Occasional [email or web address] Information not available 03/08/2020 Mental Status None recorded. Family History Relationship Description Onset Age of this Age Resolved Age Notes LastModified by Organization Details LastModified Time Mother Hypercholest [email or web address] Not available 03/08 18:05:28 Mother Cyst of ovary [email or web address] Not available 03/08 18:05:51 Mother Mental disorder [email or web address] Not available 03/08 18:06:21 Mother Depressive disorder [email or web address] Not available 09/17 12:57:19 Mother Anemia [email or web address] Not available 09/17/2021 12:57:29 Father Asthma [email or web address] Not available 03/08/2020 18:07:07 Paternal Grandmother Asthma [email or web address] Not available 09/2019 18:07:07 Paternal Grandmother Malignant neoplasm of breast [email or web address] Not available 03/08 18:07:25 Paternal Grandmother Heart disease [email or web address] Not available 03/08 18:07:45 Paternal Grandmother Diabetes mellitus [email or web address] Not available 03/08 18:07:59 Sister Asthma [email or web address] Not available 03/08/2020 18:07:07 Sister Female infertility [email or web address] Not available 09/2019 18:08:32 Sister Polycystic ovary syndrome Not available 03/08 18:09:26 Brother Asthma [email or web address] Not availabl e 03/08/2020 18:07:07 Maternal Grandfather Heart disease [email or web address] Not available 03/08 18:07:45 Maternal Grandfather Diabetes mellitus [email or web address] Not available 03/08 18:07:59 Maternal Grandfather Depressive disorder [email or web address] Not available 09/17 12:58:18 Maternal Grandmother Malignant neoplasm of isthmus of uterine body [email or web address] Not available 18:12:09 Maternal Grandmother Hypertensive disorder [email or web address] Not available 09/17 12:57:46 Maternal Grandmother Malignant neoplasm of urinary bladder [email or web address] Not available 09/17 12:58:06 Maternal Uncle Malignant neoplasm of lung [email or web address] Not available 09/17 12:58:44 Medical History Condition Response Other N Blood Transfusion N Dermatologic Disorders N Gestational Diabetes N Anxiety Disorder Y Autoimmune disease N Arthritis N Polyps N Infertility N Acid Reflux (GERD) Y Cancer N Varicosities N Stroke N Neurologic/Epilepsy Y Fibromyalgia N Headaches N Kidney Disease N Heart Problems N Kidney or Bladder Problems N Eating Disorder N Art (IVF or FET) N Hepatitis/Liver Disease N No Past Medical History N Urinary Tract Infection N Asthma N Trauma/Violence N Thrombophilias N Allergies (Food, seasonal, environmental ) N Breast Cancer N Drug/Latex Allergies/Reactions N Lung Disease N Defects or Inherited Disease N Breast Problem N Hematologic disorders N Anesthesia Complications N History of STI N Deep Vein Thrombosis N Polycystic ovary syndrome N History of abnormal pap N Endometriosis N High Cholesterol N Thyroid Problems N GI Problems Y Anemia N Psychiatric Illness Y Ovarian Cancer N Diabetes N Pulmonary (TB, Asthma) N Eczema N Abuse/Domestic Violence N Depression/ depression Y Heart Disease N Pre-Eclampsia N Hypertension N Osteoporosis N Gynecological History Statement/Question Response Flow Heavy Date of LMP 07/22/2023 On BCP's at Conception? N Was last menstrual period normal N STIs/STDs N Duration of Flow (days) 5 11 Current Control Method Breastfeedi ng/TRUJILLO Are cycles usually normal Y Sexually Active? Y Menses Monthly Y Date of Last Pap Smear 11/05/2021 Sexual Problems? N LMP Approximate Obstetrics History GPAL:G 6 P 3 0 3 3 Type Value Full Term 3 Spontaneous 3 Living 3 Total 6 Past Encounters Encounter ID Performer Location Encounter Start Date Encounter Closed Date Diagnosis/Indication Diagnosis SNOMED-CT Code Diagnosis ICD10 Code Diagnosis IMO Codes [facility] [id number] [address],[place] [address] 03/07/2020 12:43:57 03/10/2020 12:13:17 Anxiety 73119067 F41.9 reviewed se risks of lexapro including scott, nausea, change in mood, behavior. If any thoughts of suicide pt to ED immediatel y, will f/u with EPDS at next visit. Morning sickness 2917958 6 O21.9 zofran ok after 9 weeks gestation, ok for unisom and B6 daily, do not rec smoking marijuana in as it is not rec by [facility] as a form of tx in morning sickness. screening 2437 82178 Z36.9 pt interested in NIPT, reviewed possible cost pt to call if desires at 10 weeks gestation, pt would like to know gender, no hx of family/per kai medical diagnosis for NIPT [id number] Shawn Trujillo MD [facility] [address],[place] [address] 04/03/2020 11:55:05 04/04/2020 14:28:20 screening 398397362 Z36.9 Routine an tenatal care 427346758 Z34.91 [id number] Shawn Trujillo MD [facility] [address],[place] [address] 04/03/2020 12:00:36 04/03/2020 13:10:53 screening 923298545 Z36.82 Z36.0 Z36.89 [id number] [facility] [address],[place] [address] 05/01/2020 11:57:43 05/01/2020 13:05:08 Mixed anxiety and depressive disorder 274761948 F41.8 [place] [address] 022402 B37.3 [id number] Nelly Schultz CNM [facility] [address],[place] [address] 05/29/2020 11:07:54 05/30/2020 19:30:58 Routine care 231800276 Z34.92 [id number] Shawn Trujillo MD [facility] [address],[place] [address] 05/29/2020 11:09:58 05/29/2020 12:26:27 screening for malformation 177354353 Z36.3 [id number] Shawn Trujillo MD [facility] [address],[place] [address] 06/26/2020 11:29:26 06/26/2020 13:49:40 screening [id number] Z36.2 [id number] [facility] [address],[place] [address] 06/26/2020 11:30:16 06/26/2020 17:47:24 Routine care [id number] Z34.92 [id number] Nelly Schultz [facility] [address],[place] [address] 07/24/2020 16:35:38 07/25/2020 13:30:47 [id number] Linda Rome [facility] [address],[place] [address] 07/28/2020 16:29:48 07/28/2020 17:03:17 Routine care [id number] Z34.93 [id number] [facility] [address],[place] [address] 08/10/2020 14:48:35 08/10/2020 15:40:38 Routine care [id number] Z34.92 [id number] Shawn Trujillo MD [facility] [address],[place] [address] 08/10/2020 15:43:21 08/10/2020 17:33:26 Uterine size for dates discrepancy 364949920 O26.843 Z3A.30 [id number] Shawn Trujillo MD [facility] [address],[place] [address] 08/10/2020 15:46:33 08/10/2020 17:05:21 Reduced movement [id number] O36.8130 [id number] [facility] [address],[place] [address] 08/24/2020 13:01:01 08/24/2020 13:39:44 Routine care [id number] Z34.92 [id number] [facility] [address],[place] [address] 09/06/2020 12:47:50 09/06/2020 14:42:25 Routine care [id number] Z34.92 [id number] [facility] [address],[place] [address] 09/20/2020 12:52:36 09/20/2020 15:22:08 Routine care [id number] Z34.92 s ection following previous section [id number] O34.219 [id number] Shawn Trujillo MD [facility] [address],[place] [address] 09/21/2020 10:01:02 09/21/2020 10:58:07 Gestational diabetes mellitus class A1 [id number] O24.410 Z3A.36 [id number] MD Brett Chambers [address],[place] [address] 09/21/2020 10:01:40 09/21/2020 11:35:09 Gestational diabetes mellitus class A1 53680219 O24.410 [id number] MD Brett Chambers [address],[place] [address] 1 09/21/2020 10:02:07 09/21/2020 15:32:32 Gestational diabetes mellitus class A1 12868009 O24.410 Pt here for diet teaching. Diet teaching completed. Carb counts for meals and snacks reviewed. Pt instructed on how to read nutritiona l labels and instructed on researchin g carb counts for meals/snac ks. Pt instructed on blood sugar level goals and importance of checking blood sugar and keeping blood sugar log. Pt instructed on high protein low carb diet and provided with food recommenda tions. Pt states she is used to a low-carb diet as she did this previously . Pt states she does like fruits and pt is aware that fruits are high in natural sugars and she needs to minimize fruit intake. Pt states she is bad about checking BS consistent ly and informed of importance of checking this QID. Pt states she has a hard time eating multiple times a day and encouraged to try to get 3 meals in and some snacks if she can between meals. Pt to call with any questions. Pt verbalized understand ing. BENNY vitale [id number] Linda Rome [facility] [address],[place] [address] 09/28/2020 09:44:06 09/28/2020 11:47:37 Routine care [id number] Z34.93 [id number] Shawn Trujillo MD [facility] [address] [place] [address] 1 09/26/2020 12:40:12 09/26/2020 13:39:09 Gestational diabetes mellitus class A1 [id number] O24.410 [id number] Shawn Trujillo MD [facility] [address] [place] [address] 09/28/2020 09:43:26 09/28/2020 10:37:53 Gestational diabetes mellitus class A1 04172151 O24.410 [id number] Shawn Trujillo MD [facility] [address] [place] [address] 1 09/28/2020 10:12:10 09/28/2020 11:42:09 condition affecting obstetrical care of mother 354753121 O36.8330 Z3A.37 [id number] Shawn Trujillo MD [facility] [address],[place] [address] 10/02/2020 09:42:04 10/02/2020 10:41:05 Gestational diabetes mellitus class A1 [id number] O24.410 [id number] Shawn Trujillo MD [facility] [address],[place] [address] 10/02/2020 09:43:26 10/02/2020 10:41:45 Gestational diabetes mellitus class A1 [id number] O24.410 Z3A.37 [id number] Nelly Schultz CNM [facility] [address],[place] [address] 10/09/2020 14:01:30 10/13/2020 17:32:09 Routine care [id number] Z34.92 [id number] Shawn Trujillo MD [facility] [address],[place] [address] 10/05/2020 10:24:37 10/05/2020 11:52:35 Gestational diabetes mellitus class A1 [id number] O24.410 [id number] Shawn Trujillo MD [facility] [address],[place] [address] 10/05/2020 10:26:17 10/05/2020 11:52:12 Routine care 684824270 Z34.91 [id number] Shawn Trujillo MD [facility] [address],[place] [address] 10/09/2020 14:02:30 10/12/2020 11:04:48 Gestational diabetes mellitus class A1 17198113 O24.410 [id number] Nelly Schultz CNM [facility] [address],[place] [address] 11/09/2020 14:41:38 11/09/2020 15:04:19 state 52164298 Z39.2 Continue to watch for signs/symp toms of post depression . Return one year from last pap smear for a well woman exam. Patient received above instructio ns, and questions have been answered. If you have any questions please call or respond to this email. Patient was made aware of the patient portal and may obtain a paper copy of today's plan if desired [id number] FLORENCE GavinM [facility] [address],[place] [address] 09/17/2021 12:34:59 09/17/2021 13:34:21 Pain in pelvis 82354587 R10.2 if us and urine culture neg plan f/u with cf to discuss possible IC Depressive disorder [id number] 9007 F32.A continue meds, f/u with psychiatry as scheduled, any suicidal thoughts to ED Vaginitis [id number] N76.0 await culture, affirm sent [id number] Shawn Trujillo MD [facility] [address],[place] [address] 09/18/2021 12:31:13 09/18/2021 13:50:46 Pain in pelvis 25849765 R10.2 [id number] Shawn Trujillo MD [facility] [address],[place] [address] 11/01/2021 16:45:27 11/01/2021 17:45:17 [id number] Linda Rome [facility] [address],[place] [address] 11/05/2021 12:27:05 11/05/2021 13:29:53 Gynecologic examination 26931143 Z01.419 Z11.3 Z11.8 Amenorrhea 20240859 N91. 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 start increased dose of prozac and f/u at new ob, [place] [id number] Shawn Trujillo MD [facility] [address],[place] [address] 12/04/2021 17:25:55 12/04/2021 18:10:34 screening [id number] Z36.82 [id number] Shawn Trujillo MD [facility] [address],[place] [address] 12/26/2021 16:46:03 12/27/2021 15:39:28 Routine care 200948719 Z34.91 screening 2437 09819 Z36.89 [id number] MD Brett Chambers [address],[place] [address] 01/30/2022 15:22:42 01/30/2022 16:32:56 screening for malformation [id number] Z36.3 [id number] Linda Rome CNM [facility] [address],[place] [address] 01/30/2022 15:23:58 01/30/2022 17:32:49 Routine care [id number] Z34.93 [id number] Shawn Trujillo MD [facility] [address],[place] [address] 03/06/2022 16:50:08 03/06/2022 17:46:46 Placental condition affecting management of mother [id number] O43.102 Z3A.25 [id number] [facility] [address],[place] [address] 03/06/2022 16:51:00 03/06/2022 18:01:48 Routine care 462493920 Z34.93 [id number] Shawn Trujillo MD [facility] [address],[place] [address] 04/03/2022 10:30:47 04/03/2022 11:05:56 Marginal insertion of umbilical cord 17516283 O43.129 Z3A.29 [id number] [facility] [address],[place] [address] 04/03/2022 10:31:11 04/03/2022 12:03:34 Routine care [id number] Z34.93 Urinary tr act infectious disease 28315441 N39.0 [id number] Linda Rome CNM [facility] [address],[place] [address] 04/18/2022 09:43:34 04/18/2022 10:13:18 Routine care [id number] Z34.93 [id number] MD Brett Chambers [address],[place] [address] 05/01/2022 09:32:25 05/01/2022 17:02:56 Placental condition affecting management of mother 822654415 O43.103 Z3A.33 [id number] Linda Rome [facility] [address],[place] [address] 05/01/2022 10:06:09 05/01/2022 10:27:19 Routine care [id number] Z34.93 [id number] Linda Rome [facility] [address],[place] [address] 05/15/2022 14:53:53 05/15/2022 15:57:15 Routine care [id number] Z34.93 [id number] Linda Rome [facility] [address],[place] [address] 05/22/2022 11:58:15 05/22/2022 12:45:49 Routine care [id number] Z34.93 [id number] Shawn Trujillo MD [facility] [address],[place] [address] 05/28/2022 11:59:01 05/28/2022 12:35:46 AND/OR placental disorder affecting management of mother 97153105 O43.103 Z3A.36 [id number] Linda Rome [facility] [address],[place] [address] 05/29/2022 12:24:39 05/30/2022 15:11:25 Routine care [id number] Z34.93 [id number] Linda Rome [facility] [address],[place] [address] 1 05/29/2022 16:14:02 05/29/2022 18:39:54 Routine care 316211053 Z34.93 [id number] [facility] [address],[place] [address] 06/05/2022 12:42:07 06/05/2022 13:04:34 Routine care 422047515 Z34.93 [id number] [facility] [address],[place] [address] 06/12/2022 12:34:34 06/12/2022 14:25:52 [id number] Angeles Rivera [facility] [address],[place] [address] 08/05/2023 12:40:21 08/06/2023 16:25:18 Pain in pelvis 04057701 R10.2 This patient is a 27 -year-old female with pelvic pain. We have agreed to complete the evaluation with pelvic ultrasound . The patient will return after the pelvic ultrasound to discuss those findings and to develop a treatment plan. A comprehens sonia history and physical exam was performed today. We spent over 25 minutes face-to-fa ce. The patient was given precaution s. She will contact clinic if pelvic pain increases in frequency or intensity. Also notify clinic of any new symptoms associated with pelvic pain. She does not appear to have an acute pelvic infection today, but was asked to contact us Immediatel y with nausea, vomiting, fever, chills. Premenstru al tension syndrome 39425003 N94.3 Will update her lab work and then discuss next steps in plan of care at her follow up. Counseled on PMS/PMDD [id number] Shawn Trujillo MD [facility] [address],[place] [address] 08/12/2023 12:17:27 08/12/2023 13:10:06 Pain in pelvis 04568823 R10.2 [id number] Angeles Rivera [facility] [address],[place] [address] 08/13/2023 12:25:49 08/14/2023 13:58:05 Premenstrual tension syndrome 63974820 N94.3 Today we discussed trial of nextstilli s to help even out hormones so PMS sx's are not so severe.She has chose to add OCP since she is already on Lamictal/A DHD medication .We will do a med check in 3mos to see how she is fairing but encouraged to call and move appt up if any issues.Spo use has a vasectomy so we are not concerned about ; may do quick start.Unde rstanding verbalized . teacher counselor:Kim scussed all control options in great detail. Pt would like to start ocp. She is aware of the risks and benefits. She does not have any medical condition that is contraindi cated with the use of estrogen containing control. Pt will start her pills on the first friday following the start of her period. She is aware it is not effective for control the first month. She is also aware of the importance of taking at the same time every day. Encouraged use of condoms as the pill does not protect against STD's. Will return in 3 months for med check. Consent was read and signed. Pt verbalized understand ing. Lab results not available for review yet; will call with those and recommenda tions for Massage therapist. Time spent in visit is a total of 30 mins with at least 50% of visit consisting of counseling and review of plan of care. Health Concerns Section Related Observation LastModified by Organization Detai ls LastModified Time None Recorded Concern Status LastModified by Organization Details LastModified Time None Recorded Advance Directives Directive None Recorded Payers Insurance Date Sequence Insurance Name Policy Number Policy Hawkins Covered Member ID Hawkins Member ID Guarantor Name 07/21/2023 1 [employer] [id number] Sj Brice [id number] Ansley Maldonado 01/30/2022 PAYMENT PLAN Ansley Maldonado 10/07/2022 1 [employer] (POS II) [id number] Robert Maldonado [id number] Ansley Maldonado 10/20/2022 PAYMENT PLAN Ansley Maldonado 08/22/2023 PAYMENT PLAN Ansley Maldonado 2023 1 [employer] [id number] Robert Maldonado [id number] Ansley Maldonado Notes Date Note Type Note Provider Name and Address Organization Details Recorded Time 06/05/2022 text/html Generic HPI TemplateReported by Patient Linda Rome CNM [address], [place], [address], [facility] 06/05/2022 13:03:21 06/12/2022 text/html Generic HPI TemplateReported by Patient Linda VazquezDavid Rome CNM [address], [place], [address], [facility] 06/12/2022 13:38:26 08/05/2023 text/html Beer-Pelvic PainReported by PatientAnsley recently had a CT scan done.Results are not available.Reports she was told there was a 4cm ovarian cyst.Uncertain which side.She is feeling fine today but will have random cramping;sex can be uncomfortable.She is also having worsening PMS 10 days prior to onset of her menstrual cycle.She is not on any new medications/regimens. Neg pain of abd/pelvis/flankNeg urinary sx'sNeg GI sx'sNeg N/V/F/C/DNeg Vag d/c, odor, irritation, itchingROS as noted in the HPI Angeles Rivera [facility] [address], [place], [address], [facility] 08/06/2023 14:26:28 08/13/2023 text/html ROS as noted in the HPI Here today for f/u to US and lab work. Angeles Rivera FARZANA [address], [place], [address], [facility] 08/14/2023 13:57:08 OBGyn Episode Ob Episode Information Episode Created Date Number of Fetuses Patient Bloodtype Patient rh Status Prepregnancy Weight lbs Domestic Partner Domestic Partner Phone Father Name Insurance Sales Professional Status 03/08/20 20 1 CLOSED Fetus Data First Name Last Name Admitted to NICU Weight (g) Sex Living Outcome Pediatric Complications Fetus ID Race Codes Race Delivery Type 3826.95 5704 M Full Term 2674 Primary Lewis Calculation Initial Lewis Date Initial Exam [...] Complications Tubal Sterilization Discharge Date Comments 5 39 breech Discharge Information Feeding Method Contraceptive Method Maternal HG B and HCT Levels Ob Episode Information Episode Created Date Number of Fetuses Patient Bloodtype Patient rh Status Prepregnancy Weight lbs Domestic Partner Domestic Partner Phone Father Name Insurance Sales Professional Status 03/08/20 20 1 CLOSED Fetus Data First Name Last Name Admitted to NICU Weight (g) Sex Living Outcome Pediatric Complications Fetus ID Race Codes Race Delivery Type , Spontane ous 0176 Lewis Calculation Initial Lewis Date Initial Exam [...] Post Complications Tubal Sterilization Discharge Date Comments 9 2019 miscarria ge Discharge Information Feeding Method Contraceptive Method Maternal HG B and HCT Levels Ob Episode Information Episode Created Date Number of Fetuses Patient Bloodtype Patient rh Status Prepregnancy Weight lbs Domestic Partner Domestic Partner Phone Father Name Insurance Sales Professional Status 03/08/20 20 1 CLOSED Fetus Data First Name Last Name Admitted to NICU Weight (g) Sex Living Outcome Pediatric Complications Fetus ID Race Codes Race Delivery Type , Spontane ous 7133 Lewis Calculation Initial Lewis Date Initial Exam Date Initial Exam Provider Initial Ultrasound Date Last Menstrual Period Date Ultra Sound Weeks Gestation 0 Eighteen To Twenty Week Lewis Update Ultra Sound Date Fundal Height At Umbil Quickening Date Ultra Sound Latest Weeks Gestation Final Lewis Confirmed By Final Elwis Confirmed Date Final Lewis Date Ultra Sound Latest Days Gestation 0 0 Menstrual History Last Menstrual Date Menses Monthly On Bcp Conception Prior Menses Frequency Hcg Plus Date Menarche Onset Age Delivery Information Delivery Date Delivery Type Labor Anesthesia Weeks Gestation Incision Type Labor Labor Length Hrs Delivered By Post Complications Tubal Sterilization Discharge Date Comments 6 2016 miscarria ge Discharge Information Feeding Method Contraceptive Method Maternal HG B and HCT Levels Ob Episode Information Episode Created Date Number of Fetuses Patient Bloodtype Patient rh Status Prepregnancy Weight lbs Domestic Partner Domestic Partner Phone Father Name Insurance Sales Professional Status 04/03/20 20 1 A Negative 154 CLOSED Fetus Data First Name Last Name Admitted to NICU Weight (g) Sex Living Outcome Pediatric Complications Fetus ID Race Codes Race Delivery Type 3316.89 15 F Full Term 3188 V Back Problems Problem Notes gastric sleeve surgery 2017 / EIFLV resolution Problem Name Start Date End Date Resolution Snomed Code Not e Deliveries by TOLAC - schd 10/11/2020 with KP @ 06:00 Gestational diabetes mellitus [id number] Lewis Calculation Initial Lewis Date Initial Exam Date Initial Exam Provider Initial Ultrasound Date Last Menstrual Period Date Ultra Sound Weeks Gestation 10/17/2020 04/03/2020 02/28/2020 01/11/2020 6 Eighteen To Twenty Week Lewis Update Ultra Sound Date Fundal Height At Umbil Quickening Date Ultra Sound Latest Weeks Gestation Final Lewis Confirmed By Final Lewis Confirmed Date Final Lewis Date Ultra Sound Latest Days Gestation 0 [email or web address] 04/03/2020 10/17/19 21 0 Pre- Flowsheet Flowsheet Date 04/03/2020 Mladonado Score Blood Edema Fundus Height Fundus Units Glucose Ketones Leukocytes Nitrite Labor Signs Protein Cervic Dilation Cervic Effacement Cervic Station 12 trace Type Weight in lbs Pre/Post Dialysis Refused Weight 158.149586592034 BP Diastolic BP Location Tested BP Systolic BP Type 70 102 Fetus Heart Rate Present A 165 Fetus Movement A No Comments This patient is a 24-year-ol d female 4 para 1021 at 11 weeks gestation who presents for initial care. She has no worrisome obstetric history. She intends to TOLAC Flowsheet Date 04/03/2020 Maldonado Score Blood Edema Fundus Height Fundus Units Glucose Ketones Leukocytes Nitrite Labor Signs Protein Cervic Dilation Cervic Effacement Cervic Station Type Weight in lbs Pre/Post Dialysis Refused BP Diastolic BP Location Tested BP Systolic BP Type Fetus Heart Rate Present Fetus Movement Comments Flowsheet Date 05/01/2020 Maldonado Score Blood Edema Fundus Height Fundus Units Glucose Ketones Leukocytes Nitrite Labor Signs Protein Cervic Dilation Cervic Effacement Cervic Station trace none trace Type Weight in lbs Pre/Post Dialysis Refused Weight 159.706255230442 BP Diastolic BP Location Tested BP Systolic BP Type 66 98 Fetus Heart Rate Present A 144 Fetus Movement A Yes Comments patient states that having d izziness and headaches, nausea, vomiting and vaginal itching and discharge, labor precautions increase hydration, chelsyapro made her vomit, also thinks yeast infection, f/u 4 week anatomy scan, having a girl Flowsheet Date 05/29/2020 Maldonado Score Blood Edema Fundus Height Fundus Units Glucose Ketones Leukocytes Nitrite Labor Signs Protein Cervic Dilation Cervic Effacement Cervic Station Type Weight in lbs Pre/Post Dialysis Refused BP Diastolic BP Location Tested BP Systolic BP Type Fetus Heart Rate Present Fetus Movement Comments Flowsheet Date 05/29/2020 Maldonado Score Blood Edema Fundus Height Fundus Units Glucose Ketones Leukocytes Nitrite Labor Signs Protein Cervic Dilation Cervic Effacement Cervic Station 20 trace Type Weight in lbs Pre/Post Dialysis Refused Weight 168.520105788528 BP Diastolic BP Location Tested BP Systolic BP Type 73 L arm 107 sitting Fetus Heart Rate Present Fetus Movement A Yes Comments Pt doing well. Symptoms at l ast visit have resolved. Pt does not plan to vaccinate and is still deciding on Vitamin K and emycin. Discussed risk vs benefit with patient. Flowsheet Date 06/26/2020 Maldonado Score Blood Edema Fundus Height Fundus Units Glucose Ketones Leukocytes Nitrite Labor Signs Protein Cervic Dilation Cervic Effacement Cervic Station Type Weight in lbs Pre/Post Dialysis Refused BP Diastolic BP Location Tested BP Systolic BP Type Fetus Heart Rate Present Fetus Movement Comments Flowsheet Date 06/26/2020 Maldonado Score Blood Edema Fundus Height Fundus Units Glucose Ketones Leukocytes Nitrite Labor Signs Protein Cervic Dilation Cervic Effacement Cervic Station trace Type Weight in lbs Pre/Post Dialysis Refused Weight 171.476773651716 BP Diastolic BP Location Tested BP Systolic BP Type 74 L arm 117 sitting Fetus Heart Rate Present Fetus Movement A Yes Comments Pt doing well. Pt given orde r for 28 week labs to be drawn at [place]. Pt does not want to do the 1 hour gtt and would prefer checking bs for 2 weeks. Will send out glucometer at next visit. Pt planning . Discussed risks and benefits of vs . Pt verbalized understanding of risks. Repeat u/s today. Will await recommendations from Dr Trujillo. Flowsheet Date 07/24/2020 Maldonado Score Blood Edema Fundus Height Fundus Units Glucose Ketones Leukocytes Nitrite Labor Signs Protein Cervic Dilation Cervic Effacement Cervic Station Type Weight in lbs Pre/Post Dialysis Refused Weight 176.013562472094 BP Diastolic BP Location Tested BP Systolic BP Type 70 R arm 108 sitting Fetus Heart Rate Present Fetus Movement Comments Flowsheet Date 07/28/2020 Maldonado Score Blood Edema Fundus Height Fundus Units Glucose Ketones Leukocytes Nitrite Labor Signs Protein Cervic Dilation Cervic Effacement Cervic Station 28 Type Weight in lbs Pre/Post Dialysis Refused Weight 175.694310491215 BP Diastolic BP Location Tested BP Systolic BP Type 73 127 Fetus Heart Rate Present A 150 Fetus Movement A Yes Comments doing well hasn't picked up glucose monitor yet, precautions reviewed, f/u 2 weeks Flowsheet Date 08/10/2020 Maldonado Score Blood Edema Fundus Height Fundus Units Glucose Ketones Leukocytes Nitrite Labor Signs Protein Cervic Dilation Cervic Effacement Cervic Station none 33 Type Weight in lbs Pre/Post Dialysis Refused Weight 179.030916795958 BP Diastolic BP Location Tested BP Systolic BP Type 64 105 Fetus Heart Rate Present A 154 Fetus Movement A Yes Comments DFM over the last few days. Will do NST after visit. Kick counts. Fundal height > dates. Growth u/s will be scheduled. Blood sugar readings look great but has only checked for 5 days. Will continue to check for atleast another week and bring long in for review. Flowsheet Date 08/10/2020 Maldonado Score Blood Edema Fundus Height Fundus Units Glucose Ketones Leukocytes Nitrite Labor Signs Protein Cervic Dilation Cervic Effacement Cervic Station Type Weight in lbs Pre/Post Dialysis Refused BP Diastolic BP Location Tested BP Systolic BP Type Fetus Heart Rate Present Fetus Movement Comments Flowsheet Date 08/10/2020 Maldonado Score Blood Edema Fundus Height Fundus Units Glucose Ketones Leukocytes Nitrite Labor Signs Protein Cervic Dilation Cervic Effacement Cervic Station Type Weight in lbs Pre/Post Dialysis Refused BP Diastolic BP Location Tested BP Systolic BP Type Fetus Heart Rate Present Fetus Movement Comments Flowsheet Date 08/24/2020 Maldonado Score Blood Edema Fundus Height Fundus Units Glucose Ketones Leukocytes Nitrite Labor Signs Protein Cervic Dilation Cervic Effacement Cervic Station 33 Type Weight in lbs Pre/Post Dialysis Refused Weight 183.224644556239 BP Diastolic BP Location Tested BP Systolic BP Type 68 105 Fetus Heart Rate Present A 150 Fetus Movement A Yes Comments No contractions. Doing well. Pt has checked some blood sugars but not consistent. Her numbers are good but very sporatic. Pt will continue to check and bring them in to visits. Itching in feet/ankles/hands. Will check labs today. Flowsheet Date 09/06/2020 Maldonado Score Blood Edema Fundus Height Fundus Units Glucose Ketones Leukocytes Nitrite Labor Signs Protein Cervic Dilation Cervic Effacement Cervic Station neg none 34 trace Type Weight in lbs Pre/Post Dialysis Refused Weight 186.777374449767 BP Diastolic BP Location Tested BP Systolic BP Type 75 110 Fetus Heart Rate Present A 152 Fetus Movement A Yes Comments Pt did not check blood sugar s. Discussed importance of blood sugar evaluation and concern of undiagnosed GDM. However, her blood sugar per blood draw last week was low. Pt did have contractions for a couple hours on Friday. labor precautions discussed. Pt still desires . Discussed risks in detail including risk of rupture and catastrophic outcome. Pt verbalized understanding. Flowsheet Date 09/20/2020 Maldonado Score Blood Edema Fundus Height Fundus Units Glucose Ketones Leukocytes Nitrite Labor Signs Protein Cervic Dilation Cervic Effacement Cervic Station 37 neg 1cm 50% -3 Type Weight in lbs Pre/Post Dialysis Refused Weight 191.267032107813 BP Diastolic BP Location Tested BP Systolic BP Type 69 99 Fetus Heart Rate Present A 138 Fetus Movement A Yes Comments Doing well. Normal movement. No contractions. Still planning if spontaneous labor. However, pt would like to go ahead and schedule at 39-40 in case she has not delivered.Blood sugars overall ok but did have 2 elevated fastings. She still does not have consistent bs log. At this point I would like to treat as GDM. She will start NST, growth u/s and diet teaching tomorrow. Pt strongly encouraged to check fbs and 1 hour pp. Flowsheet Date 09/21/2020 Maldonado Score Blood Edema Fundus Height Fundus Units Glucose Ketones Leukocytes Nitrite Labor Signs Protein Cervic Dilation Cervic Effacement Cervic Station Type Weight in lbs Pre/Post Dialysis Refused BP Diastolic BP Location Tested BP Systolic BP Type Fetus Heart Rate Present Fetus Movement Comments Flowsheet Date 09/21/2020 Maldonado Score Blood Edema Fundus Height Fundus Units Glucose Ketones Leukocytes Nitrite Labor Signs Protein Cervic Dilation Cervic Effacement Cervic Station Type Weight in lbs Pre/Post Dialysis Refused BP Diastolic BP Location Tested BP Systolic BP Type Fetus Heart Rate Present Fetus Movement Comments Flowsheet Date 09/21/2020 Maldonado Score Blood Edema Fundus Height Fundus Units Glucose Ketones Leukocytes Nitrite Labor Signs Protein Cervic Dilation Cervic Effacement Cervic Station Type Weight in lbs Pre/Post Dialysis Refused BP Diastolic BP Location Tested BP Systolic BP Type Fetus Heart Rate Present Fetus Movement Comments Flowsheet Date 09/26/2020 Maldonado Score Blood Edema Fundus Height Fundus Units Glucose Ketones Leukocytes Nitrite Labor Signs Protein Cervic Dilation Cervic Effacement Cervic Station Type Weight in lbs Pre/Post Dialysis Refused BP Diastolic BP Location Tested BP Systolic BP Type Fetus Heart Rate Present Fetus Movement Comments Flowsheet Date 09/28/2020 Maldonado Score Blood Edema Fundus Height Fundus Units Glucose Ketones Leukocytes Nitrite Labor Signs Protein Cervic Dilation Cervic Effacement Cervic Station Type Weight in lbs Pre/Post Dialysis Refused BP Diastolic BP Location Tested BP Systolic BP Type Fetus Heart Rate Present Fetus Movement Comments Flowsheet Date 09/28/2020 Maldonado Score Blood Edema Fundus Height Fundus Units Glucose Ketones Leukocytes Nitrite Labor Signs Protein Cervic Dilation Cervic Effacement Cervic Station neg none trace Type Weight in lbs Pre/Post Dialysis Refused Weight 193.27446170861 BP Diastolic BP Location Tested BP Systolic BP Type 72 105 Fetus Heart Rate Present Fetus Movement A Yes Comments patient states that not slee ping, back pain, restless legs, heartburns, BH contractions, pain, and discharge, BPP 4/10, pt sent to LD,aware delivery may be possible, orders to ld, to discuss with dr. trujillo, fastings last couple days 2 elevated only checked pp one day. Flowsheet Date 09/28/2020 Maldonado Score Blood Edema Fundus Height Fundus Units Glucose Ketones Leukocytes Nitrite Labor Signs Protein Cervic Dilation Cervic Effacement Cervic Station Type Weight in lbs Pre/Post Dialysis Refused BP Diastolic BP Location Tested BP Systolic BP Type Fetus Heart Rate Present Fetus Movement Comments Flowsheet Date 10/02/2020 Maldonado Score Blood Edema Fundus Height Fundus Units Glucose Ketones Leukocytes Nitrite Labor Signs Protein Cervic Dilation Cervic Effacement Cervic Station Type Weight in lbs Pre/Post Dialysis Refused BP Diastolic BP Location Tested BP Systolic BP Type Fetus Heart Rate Present Fetus Movement Comments Flowsheet Date 10/02/2020 Maldonado Score Blood Edema Fundus Height Fundus Units Glucose Ketones Leukocytes Nitrite Labor Signs Protein Cervic Dilation Cervic Effacement Cervic Station Type Weight in lbs Pre/Post Dialysis Refused BP Diastolic BP Location Tested BP Systolic BP Type Fetus Heart Rate Present Fetus Movement Comments Flowsheet Date 10/05/2020 Maldonado Score Blood Edema Fundus Height Fundus Units Glucose Ketones Leukocytes Nitrite Labor Signs Protein Cervic Dilation Cervic Effacement Cervic Station Type Weight in lbs Pre/Post Dialysis Refused BP Diastolic BP Location Tested BP Systolic BP Type Fetus Heart Rate Present Fetus Movement Comments Flowsheet Date 10/05/2020 Maldonado Score Blood Edema Fundus Height Fundus Units Glucose Ketones Leukocytes Nitrite Labor Signs Protein Cervic Dilation Cervic Effacement Cervic Station 38 trace 3cm 50% -2 Type Weight in lbs Pre/Post Dialysis Refused Weight 197.690195630515 BP Diastolic BP Location Tested BP Systolic BP Type 69 R arm 105 sitting Fetus Heart Rate Present A 145 Fetus Movement A Yes Comments Undecided about c/s or iol o f labor. Flowsheet Date 10/09/2020 Maldonado Score Blood Edema Fundus Height Fundus Units Glucose Ketones Leukocytes Nitrite Labor Signs Protein Cervic Dilation Cervic Effacement Cervic Station Type Weight in lbs Pre/Post Dialysis Refused BP Diastolic BP Location Tested BP Systolic BP Type Fetus Heart Rate Present Fetus Movement Comments Flowsheet Date 10/09/2020 Maldonado Score Blood Edema Fundus Height Fundus Units Glucose Ketones Leukocytes Nitrite Labor Signs Protein Cervic Dilation Cervic Effacement Cervic Station 39 3cm 70% -2 Type Weight in lbs Pre/Post Dialysis Refused Weight 195.130601885295 BP Diastolic BP Location Tested BP Systolic BP Type 82 126 Fetus Heart Rate Present Fetus Movement A Yes Comments Pt was already scheduled for MIL on Friday. Discussed tolac vs c/s. Discussed risks. Pt wants to proceed with tolac. Menstrual History Last Menstrual Date Menses Monthly On Bcp Conception Prior Menses Frequency Hcg Plus Date Menarche Onset Age 0501/11/2020 Genetic Screening And Infection History Question Response Note Mental Retardation/Autism false Patient's Age Will Be 35 Years Or Older At Estim ated Date of Delivery false Thalassemia (Citizen Of [place], Thai, Mediterranean, Or Background): MCV < 80 false Neural Tube Defect (Meningomyelocele, Spina Bifi da, Or Anencephaly) false Congenital Heart Defect false Down Syndrome false Yuriy-Sachs (eg, Pentecostal, Cajun, Tu[place]uan-St Helenian) f alse Jason Disease false Sickle Cell Disease Or Trait () false Hemophilia Or Other Blood Disorders false Muscular Dystrophy false Cystic Fibrosis false Mcdonald's Chorea false Intellectual Disability/Autism false If Yes, Was Person Tested For Fragile X? false Other Inherited Genetic Or Chromosomal Disorder false Maternal Metabolic Disorder (eg, Type 1 Diabetes , PKU) false Patient Or Baby's Father Had A Child With Defects Not Listed Above false Recurrent Loss, Or A Stillbirth false Medications (including Suppl ements, Vitamins, Herbs, OTC Drugs), Illicit/Recreational Drugs, Alcohol false If Yes, Agent(s) And Strength/Dosage false Any Other Genetic History false Live With Someone With TB Or Exposed To TB false Patient Or Partner Has History Of Genital Herpes false Rash Or Viral Illness Since Last Menstrual Perio d false History Of STD, Gonorrhea, Chlamydia, HPV, Syphi lis false Other Infection History false History of HIV false History of Hepatitis false Prior GBS-infected child false Hemoglobinopathy Or Carrier false Other Structural Defect false Recent Travel History Outside of Country false Delivery Information Delivery Date Delivery Type Labor Anesthesia Weeks Gestation Incision Type Labor Labor Length Hrs Delivered By Post Complications Tubal Sterilization Discharge Date Comments 1 Sponta neous 39.1 false Nelly Schultz CN Discharge Information Feeding Method Contraceptive Method Maternal HG B and HCT Levels Ob Episode Information Episode Created Date Number of Fetuses Patient Bloodtype Patient rh Status Prepregnancy Weight lbs Domestic Partner Domestic Partner Phone Father Name Insurance Sales Professional Status 12/27/19 22 1 CLOSED Fetus Data First Name Last Name Admitted to NICU Weight (g) Sex Living Outcome Pediatric Complications Fetus ID Race Codes Race Delivery Type , Spontane ous [id number] Lewis Calculation Initial Lewis Date Initial Exam [...] Post Complications Tubal Sterilization Discharge Date Comments 0 Discharge Information Feeding Method Contraceptive Method Maternal HG B and HCT Levels Ob Episode Information Episode Created Date Number of Fetuses Patient Bloodtype Patient rh Status Prepregnancy Weight lbs Domestic Partner Domestic Partner Phone Father Name Insurance Sales Professional Status 12/27/19 22 1 A Negative 168 CLOSED Fetus Data First Name Last Name Admitted to NICU Weight (g) Sex Living Outcome Pediatric Complications Fetus ID Race Codes Race Delivery Type 3628.73 6 F true Full Term [id number] V Back Problems Problem Notes anti D+ r/t rhogam on /SMA 2019 negmarginal cord insert Problem Name Start Date End Date Resolution Snomed Code Not e Hyperthyroidism 48969149 low TSH, normal T4 - repeat 2 months (01/03) Anemia 01/03/2022 338118482 had histo ry already on supplementation Vaginal delivery following previous section [id number] Attention deficit hyperactivity disorder [id number] History of bariatric surgical procedure [id number] 2018, los t 100# delivery - delivered [id number] breech Mixed anxiety and depressive disorder [id number] lamotrig ine, prozac - [place] considering restart Subchorionic hematoma [id number] 4 [id number] Epigastric pain [id number] radi ates to back, status post cholecystectomy, consider imaging Lewis Calculation Initial Lewis Date Initial Exam Date Initial Exam Provider Initial Ultrasound Date Last Menstrual Period Date Ultra Sound Weeks Gestation 06/20/2022 12/26/2021 11/01/2021 09/12/2021 7 Eighteen To Twenty Week Lewis Update Ultra Sound Date Fundal Height At Umbil Quickening Date Ultra Sound Latest Weeks Gestation Final Lewis Confirmed By Final Lewis Confirmed Date Final Lewis Date Ultra Sound Latest Days Gestation 0 [email or web address] 12/26/2021 06/19/20 22 0 Pre- Flowsheet Flowsheet Date 12/26/2021 Maldonado Score Blood Edema Fundus Height Fundus Units Glucose Ketones Leukocytes Nitrite Labor Signs Protein Cervic Dilation Cervic Effacement Cervic Station 15 Type Weight in lbs Pre/Post Dialysis Refused Weight 170.133612702569 BP Diastolic BP Location Tested BP Systolic BP Type 71 R arm 107 sitting Fetus Heart Rate Present A 154 Fetus Movement Comments This patient is a 26-year-ol d 5 para 2031 at 15 weeks gestation who presents for initial care. Patient is status post bariatric surgery and has recently suffered for some epigastric pain. We agreed to observe the pain and obtain some imaging should her pain return. She has had cholecystectomy as well. She has a mixed anxiety depression disorder. She is considering restarting her lamotrigine and Prozac. She discontinued it through the 1st trimester. She had a previous with a subsequent . She would like to again. She has uncertain COVID vaccination status. She was given recommendations on vaccination. We talked about care in great detail. Talked about her problems in significant detail. She will begin routine care. Flowsheet Date 01/30/2022 Maldonado Score Blood Edema Fundus Height Fundus Units Glucose Ketones Leukocytes Nitrite Labor Signs Protein Cervic Dilation Cervic Effacement Cervic Station Type Weight in lbs Pre/Post Dialysis Refused BP Diastolic BP Location Tested BP Systolic BP Type Fetus Heart Rate Present Fetus Movement Comments Flowsheet Date 01/30/2022 Maldonado Score Blood Edema Fundus Height Fundus Units Glucose Ketones Leukocytes Nitrite Labor Signs Protein Cervic Dilation Cervic Effacement Cervic Station neg none none trace Type Weight in lbs Pre/Post Dialysis Refused Weight 176.431193693099 BP Diastolic BP Location Tested BP Systolic BP Type 69 100 Fetus Heart Rate Present Fetus Movement A Yes Comments patient is having cramping, left side pain, discharge, nausea and vomiting. anatomy complete, marginal cord insert, precautions reviewed, plan maternity belt next visit and f/u us Flowsheet Date 03/06/2022 Maldonado Score Blood Edema Fundus Height Fundus Units Glucose Ketones Leukocytes Nitrite Labor Signs Protein Cervic Dilation Cervic Effacement Cervic Station Type Weight in lbs Pre/Post Dialysis Refused BP Diastolic BP Location Tested BP Systolic BP Type Fetus Heart Rate Present Fetus Movement Comments Flowsheet Date 03/06/2022 Maldonado Score Blood Edema Fundus Height Fundus Units Glucose Ketones Leukocytes Nitrite Labor Signs Protein Cervic Dilation Cervic Effacement Cervic Station neg none none trace Type Weight in lbs Pre/Post Dialysis Refused Weight 180.423151362189 BP Diastolic BP Location Tested BP Systolic BP Type 67 95 Fetus Heart Rate Present Fetus Movement Comments patient is having back pain. order maternity support belt, chiropractor, started back on wellbutrin and mood is doing better, never started lamotragene from psych, precautions reviewed efw 12 % MCI f/u in 4 weeks with GCT tsh draw today Flowsheet Date 04/03/2022 Maldonado Score Blood Edema Fundus Height Fundus Units Glucose Ketones Leukocytes Nitrite Labor Signs Protein Cervic Dilation Cervic Effacement Cervic Station Type Weight in lbs Pre/Post Dialysis Refused BP Diastolic BP Location Tested BP Systolic BP Type Fetus Heart Rate Present Fetus Movement Comments Flowsheet Date 04/03/2022 Maldonado Score Blood Edema Fundus Height Fundus Units Glucose Ketones Leukocytes Nitrite Labor Signs Protein Cervic Dilation Cervic Effacement Cervic Station neg none none trace Type Weight in lbs Pre/Post Dialysis Refused Weight 186.191137612353 BP Diastolic BP Location Tested BP Systolic BP Type 71 105 Fetus Heart Rate Present Fetus Movement A Yes Comments patient is having BH contrac tions, pain, discharge, pain with urination and frequency with urination. plan macrobid urine to culture, some difficulty catching full breath sat 98%, pulse 88, some increased anxiety due to moving and selling house, ED precautions reviewed, MCI EFW 20% f/u 2 weeks ob visit, ok for tdap Flowsheet Date 04/18/2022 Maldonado Score Blood Edema Fundus Height Fundus Units Glucose Ketones Leukocytes Nitrite Labor Signs Protein Cervic Dilation Cervic Effacement Cervic Station neg none 32 none trace Type Weight in lbs Pre/Post Dialysis Refused Weight 189.563081528716 BP Diastolic BP Location Tested BP Systolic BP Type 56 92 Fetus Heart Rate Present A 126 Fetus Movement A Yes Comments anxiety still the same sold house trying to move, but feels ok, precautions reviewed, plan preadmit after next visit Flowsheet Date 05/01/2022 Maldonado Score Blood Edema Fundus Height Fundus Units Glucose Ketones Leukocytes Nitrite Labor Signs Protein Cervic Dilation Cervic Effacement Cervic Station Type Weight in lbs Pre/Post Dialysis Refused BP Diastolic BP Location Tested BP Systolic BP Type Fetus Heart Rate Present Fetus Movement Comments Flowsheet Date 05/01/2022 Maldonado Score Blood Edema Fundus Height Fundus Units Glucose Ketones Leukocytes Nitrite Labor Signs Protein Cervic Dilation Cervic Effacement Cervic Station neg trace none trace Type Weight in lbs Pre/Post Dialysis Refused Weight 192.236734381447 BP Diastolic BP Location Tested BP Systolic BP Type 72 103 Fetus Heart Rate Present Fetus Movement A Yes Comments patient is having contractio ns, discharge, and swelling. doing well, sold house and bought another one, EFW -MCI 28%, plan one more 2 week visit then weekly, plan 4 week rpt growth, precautions reviewed Flowsheet Date 05/15/2022 Maldonado Score Blood Edema Fundus Height Fundus Units Glucose Ketones Leukocytes Nitrite Labor Signs Protein Cervic Dilation Cervic Effacement Cervic Station neg trace none trace Type Weight in lbs Pre/Post Dialysis Refused Weight 200.823119194970 BP Diastolic BP Location Tested BP Systolic BP Type 80 126 Fetus Heart Rate Present Fetus Movement A Yes Comments patient states that having b ack pain, BH contractions, discharge, not sleeping well, shortness of breathe while walking, and some swelling. unisom and benedryl, not working, ambien 5mg #10 0 rf, seeing a chiropractor gbs next visit Flowsheet Date 05/22/2022 Maldonado Score Blood Edema Fundus Height Fundus Units Glucose Ketones Leukocytes Nitrite Labor Signs Protein Cervic Dilation Cervic Effacement Cervic Station neg trace 37 none trace 1cm 80% -2 Type Weight in lbs Pre/Post Dialysis Refused Weight 201.939396306514 BP Diastolic BP Location Tested BP Systolic BP Type 64 95 Fetus Heart Rate Present A 152 Fetus Movement A Yes Comments patient is having some pain, pressure, BH contractions and swelling. doing well precautions reviewed GBS done. ambien 5mg not helping 10 mg makes her sleep and mood has improved, would like refill f/u one week Flowsheet Date 05/28/2022 Malodnado Score Blood Edema Fundus Height Fundus Units Glucose Ketones Leukocytes Nitrite Labor Signs Protein Cervic Dilation Cervic Effacement Cervic Station Type Weight in lbs Pre/Post Dialysis Refused BP Diastolic BP Location Tested BP Systolic BP Type Fetus Heart Rate Present Fetus Movement Comments Flowsheet Date 05/29/2022 Maldonado Score Blood Edema Fundus Height Fundus Units Glucose Ketones Leukocytes Nitrite Labor Signs Protein Cervic Dilation Cervic Effacement Cervic Station neg none 38 none trace Type Weight in lbs Pre/Post Dialysis Refused Weight 202.816920580086 BP Diastolic BP Location Tested BP Systolic BP Type 66 97 Fetus Heart Rate Present A 150 Fetus Movement A Yes Comments patient is having pain, pres sure and nausea. pt would like 39 week elective induction, reviewed IUPC as a precaution due to hx of , aware of risk of uterine rupture, will schedule for jun 12, precautions reviewed Flowsheet Date 05/29/2022 Maldonado Score Blood Edema Fundus Height Fundus Units Glucose Ketones Leukocytes Nitrite Labor Signs Protein Cervic Dilation Cervic Effacement Cervic Station 2cm 50% -2 Type Weight in lbs Pre/Post Dialysis Refused Weight 202.024142731117 BP Diastolic BP Location Tested BP Systolic BP Type 66 97 Fetus Heart Rate Present Fetus Movement Comments pt would like IOL, hx c/s th en , plan low dose pitocin, discussed risk of rupture, pt will consider IUPC f/u one week Flowsheet Date 06/05/2022 Maldonado Score Blood Edema Fundus Height Fundus Units Glucose Ketones Leukocytes Nitrite Labor Signs Protein Cervic Dilation Cervic Effacement Cervic Station neg none 39 none trace 2cm 60% -2 Type Weight in lbs Pre/Post Dialysis Refused Weight 207.738619383681 BP Diastolic BP Location Tested BP Systolic BP Type 71 106 Fetus Heart Rate Present A 143 Fetus Movement A Yes Comments patient states that having s ome contractions, pressure, swelling, and nausea. reviewed precautions would like to cancel induction Flowsheet Date 06/12/2022 Maldonado Score Blood Edema Fundus Height Fundus Units Glucose Ketones Leukocytes Nitrite Labor Signs Protein Cervic Dilation Cervic Effacement Cervic Station neg trace none trace Type Weight in lbs Pre/Post Dialysis Refused Weight 205.525792120316 BP Diastolic BP Location Tested BP Systolic BP Type 68 105 Fetus Heart Rate Present A 150 Fetus Movement A Yes Comments patient is having some pain, contractions, swelling and pressure. discussed iol at 40 weeks hx successful TOLAC, labor precautions declined cervical exam or sooner induction date +FM ambien rf #10 Menstrual History Last Menstrual Date Menses Monthly On Bcp Conception Prior Menses Frequency Hcg Plus Date Menarche Onset Age 0109/12/2021 Genetic Screening And Infection History Question Response Note Mental Retardation/Autism false Patient's Age Will Be 35 Years Or Older At Estim ated Date of Delivery false Thalassemia (Citizen Of [place], Thai, Mediterranean, Or Background): MCV < 80 false Neural Tube Defect (Meningomyelocele, Spina Bifi da, Or Anencephaly) false Congenital Heart Defect false Down Syndrome false Yuriy-Sachs (eg, Pentecostal, Cajun, [place]-St [place]ian) f alse Jason Disease false Sickle Cell Disease Or Trait () false Hemophilia Or Other Blood Disorders false Muscular Dystrophy false Cystic Fibrosis false Mcdonald's Chorea false Intellectual Disability/Autism false If Yes, Was Person Tested For Fragile X? false Other Inherited Genetic Or Chromosomal Disorder false Maternal Metabolic Disorder (eg, Type 1 Diabetes , PKU) false Patient Or Baby's Father Had A Child With Defects Not Listed Above false Recurrent Loss, Or A Stillbirth false Medications (including Suppl ements, Vitamins, Herbs, OTC Drugs), Illicit/Recreational Drugs, Alcohol false If Yes, Agent(s) And Strength/Dosage false Any Other Genetic History false Live With Someone With TB Or Exposed To TB false Patient Or Partner Has History Of Genital Herpes false Rash Or Viral Illness Since Last Menstrual Perio d false History Of STD, Gonorrhea, Chlamydia, HPV, Syphi lis false Other Infection History false History of HIV false History of Hepatitis false Prior GBS-infected child false Hemoglobinopathy Or Carrier false Other Structural Defect false Recent Travel History Outside of Country false Delivery Information Delivery Date Delivery Type Labor Anesthesia Weeks Gestation Incision Type Labor Labor Length Hrs Delivered By Post Complications Tubal Sterilization Discharge Date Comments 2 Induce d Regional-Ep idural 40.1 false Linda Rome CNM & anemia Discharge Information Feeding Method Contraceptive Method Maternal HG B and HCT Levels Breast
--- OUTSIDE RECORDS SUMMARY | 2025-07-06 01:50 | XMS_ITS | Data Portability ---
Author Organization [place] - [facility] [employer], Main Office Address [address] [place] [address] Assessment Encounter Date Assessment Date Assessment LastModified by Organization Details LastModified Time 05/20/2023 05/20/2023 [employer]- [facility] Call office if worse, ER if life threatening illness RTC 8 weeks She voices understanding of plan and agrees [email or web address] Not available 05/20/2023 12:04:08 Plan of Treatment Reminders Order Date Submit Date Provider Last Modified By Organization Details Last Modified Time Details Appointments None recorded. Lab lipid panel, serum 2022 023 [facility] (Lab), [address] [place], [address], 3 16:11:33 ferritin, serum or plasma 2022 023 [facility] (Lab), [address] [place], [address], 3 15:58:06 iron + total iron-bindin g capacity (TIBC), serum 2022 023 [facility] (Lab), [address] [place], [address], 3 16:00:27 CBC w/ auto diff 2022 023 [facility] (Lab), [address] [place], [address], 3 14:43:47 CMP, serum or plasma 2022 023 [facility] (Lab), [address] [place], [address], 3 16:11:28 vitamin D, 25-hydroxy, total, serum [address] (Lab), [address] [place], [address], 3 09:29:42 protein electrophor esis panel, serum or plasma 2022 023 [facility] (Lab), [address] [place], [address], 3 16:12:21 glycohemogl obin, total, blood 2022 023 [facility] (Lab), [address] [place], [address], 3 20:08:00 vitamin B12 + folate, serum or blood [address] (Lab), [address] [place], [address], 3 09:29:42 Referral physical therapist referral 2022 023 [email or web address] [facility], [address] [place], [address], 4 08:40:14 Procedures None recorded. Surgeries None recorded. Imaging XR, cervical spine, 2 or 3 view 2022 023 [facility] ([facility]), [address] [place], [address], 3 16:54:22 CT, abdomen + pelvis, w/ contrast - no auth required [address] (Imaging), [address] [facility] [address], [place], [address], 3 12:51:19 XR, lumbar spine 2022 023 [facility] ([facility]), [address] [place], [address], 3 16:56:59 Medication Orders None recorded. Patient TargetsNo targets recorded. Patient InstructionsNo instructions recorded. Reason for Referral Physical Therapist Referral for Chronic back pain Referring Physician: Celeste Morley, Internal Medicine, Encounter Date: 05/20/2023 Results Created Date Observation Date Name Description Value Unit Range Abnormal Flag Note LastModifiedBy Organization Detail LastModifiedTime 06/11/20 21 06/11/2021 pregn sofiya test, urine HCG negati ve Not Available [id number] [address] [facility] [address], [place], [address], 06/11/2021 10:55:57 10/03/19 23 10/03/2022 FOLAT E, SERUM /PLAS MA folate 7.42 NG/mL 2.76-2 0.0 Not Available [facility] (Lab) [address] [place], [address], 10/03/2022 14:33:21 10/03/19 23 10/04/2022 INSUL IN insulin 4.9 uIU/m L 2.6-24 .9 Perfo rmed at: - [facility] [address] [facility], [place] [id number] [facility]0 Lab Direc tor: Quintin oro PhD, Phone : [phone] Not Available [facility] (Lab) [address] [place], [address], 10/04/2022 10:12:31 10/03/19 23 10/03/2022 HEMOG LOBIN A1C HA1C 5.1 % 4.0-6. 0 Diabe real Manfrede daria Crite linda: <5.7% Consi stent with absen ce of diabe real 5.7-6 .4% Consi stent with incre ased risk for diabe real (pred iabet es) >OR=6 .5% Consi stent with diabe real REFER ENCE: Diabe real Care 2016, 39(Deng ppl.1 ):s13 -s22 Not Available [facility] (Lab) [address] [place], [address], 10/03/2022 22:16:12 10/03/19 23 10/03/2022 VITAM IN B12 (YARIEL EFRAIN ) vb12 358 pg/mL 239-93 1 Not Available [facility] (Lab) [address] [place], [address], 10/03/2022 14:33:14 10/03/19 23 10/03/2022 CHRIS TIN ferritin 10 NG/mL 6.24-1 37 Not Available [facility] (Lab) [address] [place], [address], 10/03/2022 13:57:44 10/03/19 23 10/03/2022 TSH thyroid-stim ulating hormone 0.912 uIU/m L 0.465- 4.680 Not Available [facility] (Lab) [address] [place], [address], 10/03/2022 13:57:08 10/03/1910/03/2022 CORTI CISCO, TOTAL bina 9.9 ug/dL CORTI CISCO RESUL T COMME NT: Refer ence Range : Befor e 10 a.m. Speci men: 4.5-2 2.7 Refer ence Range : After 5 p.m. Speci men: 1.7-[address] ease inter pret above resul ts accor dingl y Not Available [facility] (Lab) [address] [place], [address], 10/03/2022 13:57:05 10/03/19 23 10/03/2022 URINA LYSIS COMPL ETE/I RIS W/RFX color yellow Not Available [facility] (Lab) [address] [place], [address], 10/03/2022 13:44:12 10/03/19 23 10/03/2022 URINA LYSIS COMPL ETE/I RIS W/RFX appear turbid abnormal Not Available [facility] (Lab) [address] [place], [address], 10/03/2022 13:44:12 10/03/19 23 10/03/2022 URINA LYSIS COMPL ETE/I RIS W/RFX specific gravity 1.022 1.001- 1.030 Not Available [facility] (Lab) [address] [place], [address], 10/03/2022 13:44:12 10/03/19 23 10/03/2022 URINA LYSIS COMPL ETE/I RIS W/RFX pH 5.0 pH_un its 5.0-9. 0 Not Available [facility] (Lab) [address] [place], [address], 10/03/2022 13:44:12 10/03/19 23 10/03/2022 URINA LYSIS COMPL ETE/I RIS W/RFX leukocytes negati ve renu/u L negati ve- Not Available [facility] (Lab) [address] [place], [address], 10/03/2022 13:44:12 10/03/19 23 10/03/2022 URINA LYSIS COMPL ETE/I RIS W/RFX nitrite negati ve negati ve- Not Available [facility] (Lab) [address] [place], [address], 10/03/2022 13:44:12 10/03/19 23 10/03/2022 URINA LYSIS COMPL ETE/I RIS W/RFX protein negati ve mg/dL negati ve- Not Available [facility] (Lab) [address] [place], [address], 10/03/2022 13:44:12 10/03/19 23 10/03/2022 URINA LYSIS COMPL ETE/I RIS W/RFX glucose normal mg/dL normal - Not Available [facility] (Lab) [address] [place], [address], 10/03/2022 13:44:12 10/03/19 23 10/03/2022 URINA LYSIS COMPL ETE/I RIS W/RFX ketones negati ve mg/dL negati ve- Not Available [facility] (Lab) [address] [place], [address], 10/03/2022 13:44:12 10/03/19 23 10/03/2022 URINA LYSIS COMPL ETE/I RIS W/RFX urobilinogen normal mg/dL normal - Not Available [facility] (Lab) [address] [facility] [place], [address], 10/03/2022 13:44:12 10/03/19 23 10/03/2022 URINA LYSIS COMPL ETE/I RIS W/RFX bilirubin negati ve mg/dL negati ve- Not Available [facility] (Lab) [address] [place], [address], 10/03/2022 13:44:12 10/03/19 23 10/03/2022 URINA LYSIS COMPL ETE/I RIS W/RFX blood negati ve mg/dL negati ve- Not Available [facility] (Lab) [address] [place], [address], 10/03/2022 13:44:12 10/03/19 23 10/03/2022 URINA LYSIS COMPL ETE/I RIS W/RFX white blood cells 0-8 /i??h pfi?? 0-8 Not Available [facility] (Lab) [address] [facility], [address], 10/03/2022 13:44:12 10/03/19 23 10/03/2022 URINA LYSIS COMPL ETE/I RIS W/RFX red blood cells 0-4 /i??h pfi?? 0-4 Not Available [facility] (Lab) [address] [facility] [place], [address], 10/03/2022 13:44:12 10/03/19 23 10/03/2022 URINA LYSIS COMPL ETE/I RIS W/RFX bacteria occasi onal abnormal Not Available [facility] (Lab) [address] [facility] [place], [address], 10/03/2022 13:44:12 10/03/19 23 10/03/2022 URINA LYSIS COMPL ETE/I RIS W/RFX mucous many /i??l pfi?? abnormal Not Available [facility] (Lab) [address] [place], [address], 10/03/2022 13:44:12 10/03/19 23 10/03/2022 URINA LYSIS COMPL ETE/I RIS W/RFX squamous epithelial few /i??l pfi?? abnormal Not Available [facility] (Lab) [address] [place], [address], 10/03/2022 13:44:12 10/03/19 23 10/03/2022 URINA LYSIS COMPL ETE/I RIS W/RFX hyaline cast occasi onal /i??l pfi?? none seen- abnormal Not Available [facility] (Lab) [address] [facility] [place], [address], 10/03/2022 13:44:12 10/03/19 23 10/03/2022 VITAM IN D 25-HY DROXY [id number] 21.9 NG/mL 30-100 low Vitam in D Statu s: Defic ient: <20 ng/mL Insuf ficie nt: 20-29 ng/mL Suffi cient : 30-10 0 ng/mL Not Available [facility] (Lab) [address] [place], [address], 10/03/2022 13:41:50 10/03/19 23 10/03/2022 T4 FREE free T4 1.07 NG/dL 0.78-2 .19 Not Available [facility] (Lab) [address] [place], [address], 10/03/2022 13:37:36 10/03/1910/03/2022 LIPID PANEL cholesterol 235 mg/dL 140-19 9 high NIH CHAR NSUS RECOM MENDA TION FOR KATHARINE STERO L: ADULT CHILD LOW RISK: <200 <170 BORDE RLINE : <200- 239 ----- HIGH RISK: >240 >200 Not Available [facility] (Lab) [address] [place], [address], 10/03/2022 13:34:02 10/03/1910/03/2022 LIPID PANEL triglyceride s 61 mg/dL 0-150 NIH CHAR NSUS REPOR T RECOM MENDA TION FOR TRIGL YCERI CECI: ADULT CHILD LOW RISK: <150 ----- BODER LINE: 150-1 99 ----- HIGH RISK: >200 ----- Not Available [facility] (Lab) [address] [place], [address], 10/03/2022 13:34:02 10/03/19 23 10/03/2022 LIPID PANEL HDL cholesterol 125 mg/dL 40- Not Available [facility] (Lab) [address] [place] [address], [address], 10/03/2022 13:34:02 10/03/19 23 10/03/2022 LIPID PANEL LDL cholesterol, calculated 98 mg/dL 0-130 NIH CHAR NSUS REPOR T RECOM MENDA TIONS FOR LDL: ADULT CHILD LOW RISK <130 <110 (OPTI MAL LDL) <100 ----- BORDE RLINE : 130-1 59 ----- HIGH RISK: >160 >130 A TRIGL YCERI DE RESUL T >400 INVAL IDATE S THE CALCU LATIO N FOR LDL FRACT IONAT ION - THE LDL RESUL T WILL NOT BE REPOR CHAD. Not Available [facility] (Lab) [address] [place], [address], 10/03/2022 13:34:02 10/03/19 23 10/03/2022 IRON/ TIBC PANEL total iron binding capacity 460 mcg/d L 265-47 5 Not Available [facility] (Lab) [address] [place], [address], 10/03/2022 13:31:01 10/03/19 23 10/03/2022 IRON/ TIBC PANEL % transferrin saturation 30 % 20-55 Not Available [facility] (Lab) [address] [place], [address], 10/03/2022 13:31:01 10/03/19 23 10/03/2022 IRON/ TIBC PANEL unsaturated iron bind capacity 324 mcg/d L 126-38 2 Not Available [facility] (Lab) [address] [place], [address], 10/03/2022 13:31:01 10/03/19 23 10/03/2022 IRON/ TIBC PANEL iron 136 mcg/d L 42-175 Not Available [facility] (Lab) [address] [place], [address], 10/03/2022 13:31:01 10/03/19 23 10/03/2022 COMPR EHENS RITESH METAB OLIC PANEL sodium 142 mmol/ L 137-14 5 Not Available [facility] (Lab) [address] [place] [address], [address], 10/03/2022 13:30:15 01/26/20 23 10/03/2022 COMPR EHENS RITESH METAB OLIC PANEL potassium 4.0 mmol/ L 3.5-5. 1 Not Available [facility] (Lab) [address] [facility] [place], [address], 10/03/2022 13:30:15 10/03/19 23 10/03/2022 COMPR EHENS RITESH METAB OLIC PANEL chloride 103 mmol/ L 98-107 Not Available [facility] (Lab) [address] [place], [address], 10/03/2022 13:30:15 10/03/19 23 10/03/2022 COMPR EHENS RITESH METAB OLIC PANEL carbon dioxide 27 mmol/ L 22-30 Not Available [facility] (Lab) [address] [place], [address], 10/03/2022 13:30:15 10/03/19 23 10/03/2022 COMPR EHENS RITESH METAB OLIC PANEL anion gap 16.0 mmol/ L 14-22 Not Available [facility] (Lab) [address] [place], [address], 10/03/2022 13:30:15 10/03/19 23 10/03/2022 COMPR EHENS RITESH METAB OLIC PANEL glucose 79 mg/dL 70-99 Not Available [facility] (Lab) [address] [place], [address], 10/03/2022 13:30:15 10/03/19 23 10/03/2022 COMPR EHENS RITESH METAB OLIC PANEL BUN 7 mg/dL 8-19 low Not Available [facility] (Lab) [address] [place], [address], 10/03/2022 13:30:15 10/03/19 23 10/03/2022 COMPR EHENS RITESH METAB OLIC PANEL creatinine 0.60 mg/dL 0.66-1 .25 low Not Available [facility] (Lab) [address] [place], [address], 10/03/2022 13:30:15 10/03/19 23 10/03/2022 COMPR EHENS RITESH METAB OLIC PANEL GFR >60 Refer ence Range : [place] ge GFR Healt hy Adult : >60 mL/mi n/1.7 3 m2 Chron ic Kidne y Disea se: 15-60 mL/mi n/1.7 3 m2 Kidne y Failu re: <15/m L/min /1.73 m2 www.n iddk. nih.g ov The MDRD study equat ion has not been valid ated in child ella <18 years of age; pregn ant women ; the elder ly >85 years of age; or in some racia l or ethni c subgr oups, such as Lizette nics. Outsi de the valid ated glo eters , estim ated GFR is less accur ate, requi ring clini chandler judgm ent on a case- by-ca se basis . Clini chandler inter preta tion for other races and ages must be made by the clini alexey. The MDRD study equat ion has not been valid ated for the evalu ation of serum creat inine relat ed to nutri bridgette l statu s or medic ation usage . For perso ns <18 years of age, a pedia tric GFR calcu lator is avail able on the [facility] websi te: https ://jazzy he.inessa rg/pr ofess ional s/kdo qi/gf r_cal culat or Not Available [facility] (Lab) [address] [place], [address], 10/03/2022 13:30:15 10/03/19 23 10/03/2022 COMPR EHENS RITESH METAB OLIC PANEL alkaline phosphatase 90 U/L 38-126 Not Available [facility] (Lab) [address] [place], [address], 10/03/2022 13:30:15 10/03/19 23 10/03/2022 COMPR EHENS RITESH METAB OLIC PANEL alanine aminotransfe rase 19 U/L 0-35 Not Available [facility] (Lab) [address] [place], [address], 10/03/2022 13:30:15 10/03/19 23 10/03/2022 COMPR EHENS RITESH METAB OLIC PANEL aspartate aminotransfe rase 21 U/L 15-37 Not Available [facility] (Lab) [address] [place], [address], 10/03/2022 13:30:15 10/03/19 23 10/03/2022 COMPR EHENS RITESH METAB OLIC PANEL bilirubin, total 0.40 mg/dL 0.20-1 .30 Not Available [facility] (Lab) [address] [place], [address], 10/03/2022 13:30:15 10/03/19 23 10/03/2022 COMPR EHENS RITESH METAB OLIC PANEL calcium 9.4 mg/dL 8.4-10 .2 Not Available [facility] (Lab) [address] [place], [address], 10/03/2022 13:30:15 10/03/19 23 10/03/2022 COMPR EHENS RITESH METAB OLIC PANEL total protein 8.5 g/dL 6.3-8. 2 high Not Available [facility] (Lab) [address] [place], [address], 10/03/2022 13:30:15 10/03/19 23 10/03/2022 COMPR EHENS RITESH METAB OLIC PANEL albumin 5.1 g/dL 3.4-5. 0 high Not Available [facility] (Lab) [address] [place], [address], 10/03/2022 13:30:15 10/03/19 23 10/03/2022 COMPR EHENS RITESH METAB OLIC PANEL globulin 3.4 g/dL 2.6-4. 2 Not Available [facility] (Lab) [address] [place], [address], 10/03/2022 13:30:15 10/03/19 23 10/03/2022 COMPR EHENS RITESH METAB OLIC PANEL A/G ratio 1.5 ratio 1.0-2. 0 Not Available [facility] (Lab) [address] [place], [address], 10/03/2022 13:30:15 10/03/19 23 10/03/2022 PREG TEST URINE QUAL urine preg, qual negati ve negati ve Not Available [facility] (Lab) [address] [place], [address], 10/03/2022 13:15:06 10/03/19 23 10/03/2022 PREG TEST URINE QUAL lot # [id number] Not Available [facility] (Lab) [address] [place], [address], 10/03/2022 13:15:06 10/03/19 23 10/03/2022 PREG TEST URINE QUAL exp date 2023 Not Available [facility] (Lab) [address] [place], [address], 10/03/2022 13:15:06 10/03/19 23 10/03/2022 PREG TEST URINE QUAL pos QC positi ve Not Available [facility] (Lab) [address] [place], [address], 10/03/2022 13:15:06 10/03/19 23 10/03/2022 PREG TEST URINE QUAL neg QC negati ve Not Available [facility] (Lab) [address] [place], [address], 10/03/2022 13:15:06 10/03/19 23 10/03/2022 CBC/C OMPLE TE BLD COUNT W/DIF F white blood cells 5.6 x10'3 /uL 4.2-10 .8 Not Available [facility] (Lab) [address] [place], [address], 10/03/2022 13:05:58 10/03/19 23 10/03/2022 CBC/C OMPLE TE BLD COUNT W/DIF F red blood cells 5.33 x10'6 /uL 3.80-5 .20 high Not Available [facility] (Lab) [address] [place], [address], 10/03/2022 13:05:58 10/03/19 23 10/03/2022 CBC/C OMPLE TE BLD COUNT W/DIF F hemoglobin 13.4 g/dL 12.0-1 5.6 Not Available [facility] (Lab) [address] [place], [address], 10/03/2022 13:05:58 10/03/19 23 10/03/2022 CBC/C OMPLE TE BLD COUNT W/DIF F hematocrit 41.8 % 35.7-4 5.7 Not Available [facility] (Lab) [address] [place], [address], 10/03/2022 13:05:58 10/03/19 23 10/03/2022 CBC/C OMPLE TE BLD COUNT W/DIF F mean red cell volume 78.4 fL 82.0-9 9.0 low Not Available [facility] (Lab) [address] [place], [address], 10/03/2022 13:05:58 10/03/19 23 10/03/2022 CBC/C OMPLE TE BLD COUNT W/DIF F mean red cell hemoglobin 25.1 pg 27.0-3 3.0 low Not Available [facility] (Lab) [address] [place], [address], 10/03/2022 13:05:58 01/26/10/03/2022 CBC/C OMPLE TE BLD COUNT W/DIF F mean RBC HGB concentratio n 32.1 g/dL 31.0-3 6.0 Not Available [facility] (Lab) [address] [place], [address], 10/03/2022 13:05:58 10/03/19 23 10/03/2022 CBC/C OMPLE TE BLD COUNT W/DIF F red cell distribution width 16.8 % 11.8-1 5.5 high Not Available [facility] (Lab) [address] [place], [address], 10/03/2022 13:05:58 10/03/1910/03/2022 CBC/C OMPLE TE BLD COUNT W/DIF F platelets 258 x10'3 /uL 150-40 0 Not Available [facility] (Lab) [address] [place], [address], 10/03/2022 13:05:58 10/03/1910/03/2022 CBC/C OMPLE TE BLD COUNT W/DIF F mean platelet volume 10.0 fL 9.0-12 .4 Not Available [facility] (Lab) [address] [place], [address], 10/03/2022 13:05:58 10/03/19 23 10/03/2022 CBC/C OMPLE TE BLD COUNT W/DIF F neutrophils 48.0 % 39.0-7 2.0 Not Available [facility] (Lab) [address] [place], [address], 10/03/2022 13:05:58 10/03/1910/03/2022 CBC/C OMPLE TE BLD COUNT W/DIF F lymphocytes 41.8 % 16.0-4 7.0 Not Available [facility] (Lab) [address] [place], [address], 10/03/2022 13:05:58 10/03/19 23 10/03/2022 CBC/C OMPLE TE BLD COUNT W/DIF F monocytes 7.3 % 5.0-12 .0 Not Available [facility] (Lab) [address] [place], [address], 10/03/2022 13:05:58 10/03/19 23 10/03/2022 CBC/C OMPLE TE BLD COUNT W/DIF F eosinophils 2.0 % 1.0-7. 0 Not Available [facility] (Lab) [address] [place], [address], 10/03/2022 13:05:58 10/03/19 23 10/03/2022 CBC/C OMPLE TE BLD COUNT W/DIF F basophils 0.7 % 0.0-2. 0 Not Available [facility] (Lab) [address] [place], [address], 10/03/2022 13:05:58 10/03/1910/03/2022 CBC/C OMPLE TE BLD COUNT W/DIF F immature granulocytes 0.2 % 0.00-0 .50 Not Available [facility] (Lab) [address] [place], [address], 10/03/2022 13:05:58 10/03/19 23 10/03/2022 CBC/C OMPLE TE BLD COUNT W/DIF F neutrophils, absolute count 2.69 x10'3 /uL 1.5-8. 0 Not Available [facility] (Lab) [address] [place], [address], 10/03/2022 13:05:58 10/03/1910/03/2022 CBC/C OMPLE TE BLD COUNT W/DIF F lymphocytes, absolute count 2.34 x10'3 /uL 1.07-3 .43 Not Available [facility] (Lab) [address] [place], [address], 10/03/2022 13:05:58 10/03/19 23 10/03/2022 CBC/C OMPLE TE BLD COUNT W/DIF F monocytes, absolute count 0.41 x10'3 /uL 0.29-0 .99 Not Available [facility] (Lab) [address] [place], [address], 10/03/2022 13:05:58 10/03/19 23 10/03/2022 CBC/C OMPLE TE BLD COUNT W/DIF F eosinophils, absolute count 0.11 x10'3 /uL 0.02-0 .53 Not Available [facility] (Lab) [address] [place], [address], 10/03/2022 13:05:58 10/03/19 23 10/03/2022 CBC/C OMPLE TE BLD COUNT W/DIF F basophils, absolute count 0.04 x10'3 /uL 0.01-0 .08 Not Available [facility] (Lab) [address] [place], [address], 10/03/2022 13:05:58 10/03/19 23 10/03/2022 CBC/C OMPLE TE BLD COUNT W/DIF F immature granulocytes ,absolute 0.01 x10'3 /uL 0.00-0 .05 Not Available [facility] (Lab) [address] [place], [address], 10/03/2022 13:05:58 10/03/19 23 10/03/2022 CBC/C OMPLE TE BLD COUNT W/DIF F nucleated red blood cells 0.0 % -0 Not Available [facility] (Lab) [address] [place], [address], 10/03/2022 13:05:58 10/03/19 23 10/03/2022 CBC/C OMPLE TE BLD COUNT W/DIF F NRBC# 0.00 x10'3 /uL Not Available [facility] (Lab) [address] [place], [address], 10/03/2022 13:05:58 05/20/2005/20/2023 CBC/C OMPLE TE BLD COUNT W/DIF F white blood cells 6.3 x10'3 /uL 4.2-10 .8 Not Available [facility] (Lab) [address] [place], [address], 05/20/2023 14:43:47 05/20/2005/20/2023 CBC/C OMPLE TE BLD COUNT W/DIF F red blood cells 4.34 x10'6 /uL 3.80-5 .20 Not Available [facility] (Lab) [address] [place], [address], 05/20/2023 14:43:47 05/20/2005/20/2023 CBC/C OMPLE TE BLD COUNT W/DIF F hemoglobin 12.4 g/dL 12.0-1 5.6 Not Available [facility] (Lab) [address] [place], [address], 05/20/2023 14:43:47 05/20/2005/20/2023 CBC/C OMPLE TE BLD COUNT W/DIF F hematocrit 37.7 % 35.7-4 5.7 Not Available [facility] (Lab) [address] [place], [address], 05/20/2023 14:43:47 05/20/20 23 05/20/2023 CBC/C OMPLE TE BLD COUNT W/DIF F mean red cell volume 86.9 fL 82.0-9 9.0 Not Available [facility] (Lab) [address] [place], [address], 05/20/2023 14:43:47 05/20/20 23 05/20/2023 CBC/C OMPLE TE BLD COUNT W/DIF F mean red cell hemoglobin 28.6 pg 27.0-3 3.0 Not Available [facility] (Lab) [address] [place], [address], 05/20/2023 14:43:47 05/20/20 23 05/20/2023 CBC/C OMPLE TE BLD COUNT W/DIF F mean RBC HGB concentratio n 32.9 g/dL 31.0-3 6.0 Not Available [facility] (Lab) [address] [place], [address], 05/20/2023 14:43:47 05/20/20 23 05/20/2023 CBC/C OMPLE TE BLD COUNT W/DIF F red cell distribution width 11.9 % 11.8-1 5.5 Not Available [facility] (Lab) [address] [place], [address], 05/20/2023 14:43:47 05/20/20 23 05/20/2023 CBC/C OMPLE TE BLD COUNT W/DIF F platelets 231 x10'3 /uL 150-40 0 Not Available [facility] (Lab) [address] [place], [address], 05/20/2023 14:43:47 05/20/20 23 05/20/2023 CBC/C OMPLE TE BLD COUNT W/DIF F mean platelet volume 10.6 fL 9.0-12 .4 Not Available [facility] (Lab) [address] [place], [address], 05/20/2023 14:43:47 05/20/20 23 05/20/2023 CBC/C OMPLE TE BLD COUNT W/DIF F neutrophils 63.8 % 39.0-7 2.0 Not Available [facility] (Lab) [address] [place], [address], 05/20/2023 14:43:47 05/20/20 23 05/20/2023 CBC/C OMPLE TE BLD COUNT W/DIF F lymphocytes 27.7 % 16.0-4 7.0 Not Available [facility] (Lab) [address] [place], [address], 05/20/2023 14:43:47 05/20/20 23 05/20/2023 CBC/C OMPLE TE BLD COUNT W/DIF F monocytes 6.0 % 5.0-12 .0 Not Available [facility] (Lab) [address] [place], [address], 05/20/2023 14:43:47 05/20/20 23 05/20/2023 CBC/C OMPLE TE BLD COUNT W/DIF F eosinophils 1.4 % 1.0-7. 0 Not Available [facility] (Lab) [address] [place], [address], 05/20/2023 14:43:47 05/20/2005/20/2023 CBC/C OMPLE TE BLD COUNT W/DIF F basophils 0.8 % 0.0-2. 0 Not Available [facility] (Lab) [address] [place], [address], 05/20/2023 14:43:47 05/20/2005/20/2023 CBC/C OMPLE TE BLD COUNT W/DIF F immature granulocytes 0.3 % 0.00-0 .50 Not Available [facility] (Lab) [address] [place], [address], 05/20/2023 14:43:47 05/20/20 23 05/20/2023 CBC/C OMPLE TE BLD COUNT W/DIF F neutrophils, absolute count 4.02 x10'3 /uL 1.5-8. 0 Not Available [facility] (Lab) [address] [place], [address], 05/20/2023 14:43:47 05/20/20 23 05/20/2023 CBC/C OMPLE TE BLD COUNT W/DIF F lymphocytes, absolute count 1.75 x10'3 /uL 1.07-3 .43 Not Available [facility] (Lab) [address] [place], [address], 05/20/2023 14:43:47 05/20/20 23 05/20/2023 CBC/C OMPLE TE BLD COUNT W/DIF F monocytes, absolute count 0.38 x10'3 /uL 0.29-0 .99 Not Available [facility] (Lab) [address] [place], [address], 05/20/2023 14:43:47 05/20/2005/20/2023 CBC/C OMPLE TE BLD COUNT W/DIF F eosinophils, absolute count 0.09 x10'3 /uL 0.02-0 .53 Not Available [facility] (Lab) [address] [place], [address], 05/20/2023 14:43:47 05/20/20 23 05/20/2023 CBC/C OMPLE TE BLD COUNT W/DIF F basophils, absolute count 0.05 x10'3 /uL 0.01-0 .08 Not Available [facility] (Lab) [address] [place], [address], 05/20/2023 14:43:47 05/20/2005/20/2023 CBC/C OMPLE TE BLD COUNT W/DIF F immature granulocytes ,absolute 0.02 x10'3 /uL 0.00-0 .05 Not Available [facility] (Lab) [address] [place], [address], 05/20/2023 14:43:47 05/20/20 23 05/20/2023 CBC/C OMPLE TE BLD COUNT W/DIF F nucleated red blood cells 0.0 % -0 Not Available [facility] (Lab) [address] [place], [address], 05/20/2023 14:43:47 05/20/20 23 05/20/2023 CBC/C OMPLE TE BLD COUNT W/DIF F NRBC# 0.00 x10'3 /uL Not Available [facility] (Lab) [address] [place], [address], 05/20/2023 14:43:47 05/20/20 23 05/20/2023 CHRIS TIN ferritin 6 NG/mL 6.24-1 37 low Not Available [facility] (Lab) [address] [place], [address], 05/20/2023 15:58:06 05/20/2005/20/2023 IRON/ TIBC PANEL total iron binding capacity 406 mcg/d L 265-47 5 Not Available [facility] (Lab) [address] [place], [address], 05/20/2023 16:23:01 05/20/20 23 05/20/2023 IRON/ TIBC PANEL % transferrin saturation 13 % 20-55 low Not Available [facility] (Lab) [address] [place], [address], 05/20/2023 16:23:01 05/20/20 23 05/20/2023 IRON/ TIBC PANEL unsaturated iron bind capacity 353 mcg/d L 126-38 2 Not Available [facility] (Lab) [address] [place], [address], 05/20/2023 16:23:01 05/20/20 23 05/20/2023 IRON/ TIBC PANEL iron 53 mcg/d L 42-175 Not Available [facility] (Lab) [address] [place], [address], 05/20/2023 16:23:01 05/20/20 23 05/20/2023 COMPR EHENS RITESH METAB OLIC PANEL sodium 137 mmol/ L 137-14 5 Not Available [facility] (Lab) [address] [facility] [place], [address], 05/20/2023 16:11:28 05/20/20 23 05/20/2023 COMPR EHENS RITESH METAB OLIC PANEL potassium 4.3 mmol/ L 3.5-5. 1 Not Available [facility] (Lab) [address] [facility] [place], [address], 05/20/2023 16:11:28 05/20/20 23 05/20/2023 COMPR EHENS RITESH METAB OLIC PANEL chloride 104 mmol/ L 98-107 Not Available [facility] (Lab) [address] [place], [address], 05/20/2023 16:11:28 05/20/20 23 05/20/2023 COMPR EHENS RITESH METAB OLIC PANEL carbon dioxide 28 mmol/ L 22-30 Not Available [facility] (Lab) [address] [place], [address], 05/20/2023 16:11:28 05/20/20 23 05/20/2023 COMPR EHENS RITESH METAB OLIC PANEL anion gap 9.3 mmol/ L 14-22 low Not Available [facility] (Lab) [address] [place], [address], 05/20/2023 16:11:28 05/20/20 23 05/20/2023 COMPR EHENS RITESH METAB OLIC PANEL glucose 86 mg/dL 70-99 Not Available [facility] (Lab) [address] [place], [address], 05/20/2023 16:11:28 05/20/20 23 05/20/2023 COMPR EHENS RITESH METAB OLIC PANEL BUN 12 mg/dL 8-19 Not Available [facility] (Lab) [address] [place], [address], 05/20/2023 16:11:28 09/1205/20/2023 COMPR EHENS RITESH METAB OLIC PANEL creatinine 0.56 mg/dL 0.66-1 .25 low Not Available [facility] (Lab) [address] [place], [address], 05/20/2023 16:11:28 05/20/20 23 05/20/2023 COMPR EHENS RITESH METAB OLIC PANEL GFR >60 Refer ence Range : [place] GFR Healt hy Adult : >60 mL/mi n/1.7 3 m2 Chron ic Kidne y Disea se: 15-60 mL/mi n/1.7 3 m2 Kidne y Failu re: <15/m L/min /1.73 m2 www.n iddk. nih.g ov The MDRD study equat ion has not been valid ated in child ella <18 years of age; pregn ant women ; the elder ly >85 years of age; or in some racia l or ethni c subgr oups, such as Hisal nics. Outsi de the valid ated glo eters , estim ated GFR is less accur ate, requi ring clini chanlder judgm ent on a case- by-ca se basis . Clini chandler inter preta tion for other races and ages must be made by the clini alexey. The MDRD study equat ion has not been valid ated for the evalu ation of serum creat inine relat ed to nutri bridgette l statu s or medic ation usage . For perso ns <18 years of age, a pedia tric GFR calcu lator is avail able on the [facility] websi te: https ://ww w.kid neri.o rg/pr ofess ional s/kdo qi/gf r_cal culat or Not Available [facility] (Lab) [address] [place], [address], 05/20/2023 16:11:28 05/20/2005/20/2023 COMPR EHENS RITESH METAB OLIC PANEL alkaline phosphatase 69 U/L 38-126 Not Available [facility] (Lab) [address] [place], [address], 05/20/2023 16:11:28 05/20/20 23 05/20/2023 COMPR EHENS RITESH METAB OLIC PANEL alanine aminotransfe rase 14 U/L 0-35 Not Available [facility] (Lab) [address] [place], [address], 05/20/2023 16:11:28 05/20/20 23 05/20/2023 COMPR EHENS RITESH METAB OLIC PANEL aspartate aminotransfe rase 16 U/L 15-37 Not Available [facility] (Lab) [address] [place], [address], 05/20/2023 16:11:28 05/20/20 23 05/20/2023 COMPR EHENS RITESH METAB OLIC PANEL bilirubin, total 0.20 mg/dL 0.20-1 .30 Not Available [facility] (Lab) [address] [place], [address], 05/20/2023 16:11:28 05/20/20 23 05/20/2023 COMPR EHENS RITESH METAB OLIC PANEL calcium 9.6 mg/dL 8.4-10 .2 Not Available [facility] (Lab) [address] [place], [address], 05/20/2023 16:11:28 05/20/20 23 05/20/2023 COMPR EHENS RITESH METAB OLIC PANEL total protein 6.9 g/dL 6.3-8. 2 Not Available [facility] (Lab) [address] [place], [address], 05/20/2023 16:11:28 05/20/20 23 05/20/2023 COMPR EHENS RITESH METAB OLIC PANEL albumin 4.3 g/dL 3.4-5. 0 Not Available [facility] (Lab) [address] [place], [address], 05/20/2023 16:11:28 05/20/20 23 05/20/2023 COMPR EHENS RITESH METAB OLIC PANEL globulin 2.6 g/dL 2.6-4. 2 Not Available [facility] (Lab) [address] [place], [address], 05/20/2023 16:11:28 05/20/20 23 05/20/2023 COMPR EHENS RITESH METAB OLIC PANEL A/G ratio 1.7 ratio 1.0-2. 0 Not Available [facility] (Lab) [address] [place], [address], 05/20/2023 16:11:28 05/20/2005/20/2023 LIPID PANEL cholesterol 200 mg/dL 140-19 9 high NIH CHAR NSUS RECOM MENDA TION FOR KATHARINE STERO L: ADULT CHILD LOW RISK: <200 <170 BORDE RLINE : <200- 239 ----- HIGH RISK: >240 >200 Not Available [facility] (Lab) [address] [place], [address], 05/20/2023 16:11:33 05/20/20 23 05/20/2023 LIPID PANEL triglyceride s 65 mg/dL 0-150 NIH CHAR NSUS REPOR T RECOM MENDA TION FOR TRIGL YCERI CECI: ADULT CHILD LOW RISK: <150 ----- BODER LINE: 150-1 99 ----- HIGH RISK: >200 ----- Not Available [facility] (Lab) [address] [place], [address], 05/20/2023 16:11:33 05/20/20 23 05/20/2023 LIPID PANEL HDL cholesterol 91 mg/dL 40- Not Available [facility] (Lab) [address] [place] [address], [address], 05/20/2023 16:11:33 05/20/20 23 05/20/2023 LIPID PANEL LDL cholesterol, calculated 96 mg/dL 0-130 NIH CHAR NSUS REPOR T RECOM MENDA TIONS FOR LDL: ADULT CHILD LOW RISK <130 <110 (OPTI MAL LDL) <100 ----- BORDE RLINE : 130-1 59 ----- HIGH RISK: >160 >130 A TRIGL YCERI DE RESUL T >400 INVAL IDATE S THE CALCU LATIO N FOR LDL FRACT IONAT ION - THE LDL RESUL T WILL NOT BE REPOR CHAD. Not Available [facility] (Lab) [address] [place], [address], 05/20/2023 16:11:33 05/20/20 23 05/20/2023 VITAM IN B12 (YARIEL EFRAIN ) vb12 264 pg/mL 239-93 1 Not Available [facility] (Lab) [address] [place], [address], 05/20/2023 17:50:45 05/20/20 23 05/20/2023 FOLAT E, SERUM /PLAS MA folate 6.96 NG/mL 2.76-2 0.0 Not Available [facility] (Lab) [address] [place], [address], 05/20/2023 17:50:46 05/20/20 23 05/20/2023 HEMOG LOBIN A1C HA1C 4.8 % 4.0-6. 0 Diabe real Scree daria Crite linda: <5.7% Consi stent with absen ce of diabe real 5.7-6 .4% Consi stent with incre ased risk for diabe real (pred iabet es) >OR=6 .5% Consi stent with diabe real REFER ENCE: Diabe real Care 2016, 39(Deng ppl.1 ):s13 -s22 Not Available [facility] (Lab) [address] [place], [address], 05/20/2023 20:07:59 05/20/20 23 05/20/2023 VITAM IN D 25-HY DROXY vd25oh 29.8 NG/mL 30-100 low Vitam in D Statu s: Defic ient: <20 ng/mL Insuf ficie nt: 20-29 ng/mL Suffi cient : 30-10 0 ng/mL Not Available [facility] (Lab) [address] [place], [address], 05/20/2023 23:27:00 05/20/20 23 05/30/2023 PROTE IN ELECT RO.,S protein, total 6.7 g/dL 6.0-8. 5 Not Available [facility] (Lab) [address] [place], [address], 05/30/2023 16:12:21 05/20/20 23 05/30/2023 PROTE IN ELECT RO.,S albumin 3.9 g/dL 2.9-4. 4 Not Available [facility] (Lab) [address] [place], [address], 05/30/2023 16:12:21 05/20/20 23 05/30/2023 PROTE IN ELECT RO.,S vtpzc-3-pvbg ulin 0.2 g/dL 0.0-0. 4 Not Available [facility] (Lab) [address] [place], [address], 05/30/2023 16:12:21 05/20/20 23 05/30/2023 PROTE IN ELECT RO.,S oqovy-0-bzne ulin 0.7 g/dL 0.4-1. 0 Not Available [facility] (Lab) [address] [place], [address], 05/30/2023 16:12:21 05/20/20 23 05/30/2023 PROTE IN ELECT RO.,S beta globulin 1.0 g/dL 0.7-1. 3 Not Available [facility] (Lab) [address] [place], [address], 05/30/2023 16:12:21 05/20/20 23 05/30/2023 PROTE IN ELECT RO.,S gamma globulin 0.9 g/dL 0.4-1. 8 Not Available [facility] (Lab) [address] [place], [address], 05/30/2023 16:12:21 05/20/20 23 05/30/2023 PROTE IN ELECT RO.,S M-spike NOT OBSERV ED g/dL not observ ed Not Available [facility] (Lab) [address] [place], [address], 05/30/2023 16:12:21 05/20/20 23 05/30/2023 PROTE IN ELECT RO.,S globulin, total 2.8 g/dL 2.2-3. 9 Not Available [facility] (Lab) [address] [place], [address], 05/30/2023 16:12:21 05/20/20 23 05/30/2023 PROTE IN ELECT RO.,S A/G ratio 1.4 0.7-1. 7 Not Available [facility] (Lab) [address] [place], [address], 05/30/2023 16:12:21 05/20/20 23 05/30/2023 PROTE IN ELECT RO.,S please note: JANET Garcia . [facility] follo w via compu ter, mail, or couri subhash malhotra. Not Available [facility] (Lab) [address] [place], [address], 05/30/2023 16:12:21 05/20/20 23 05/30/2023 PROTE IN ELECT RO.,S pdf . Perfo rmed at: - [place] [id number] Lab Direc tor: Quintin oro PhD, Phone : [phone] Not Available [facility] (Lab) [address] [place], [address], 05/30/2023 16:12:21 05/20/20 23 05/20/2023 XR, cervi chandler spine , 2 or 3 view [facility] [address] [place] [address] Patien t Name: ARIELLA BRICE Access ion #: [id number] Sex: F : 1995 3 Dictat ed By: Mauricio Hobson Attend ing Physic chaparro: CELESTE MORLEY Physic chaparro: CELESTE MORLEY Exam Date: 2022 11:43 AM Exam Name: XR C SPINE 3V Admitt ing Diagno sis(es ): INDICA TION: Cervic al spine pain. TECHNI QUE: 3 views of the cervic al spine were obtain ed. COMPAR PHOEBE: None. FINDIN GS: The cervic al spine is visual ized from C1-C7. There is loss of the normal cervic al lordos is which can be positi onal. No fractu res or sublux ations are identi fied. Alignm ent appear s unrema rkable . Prever tebral soft tissue s are within normal limits . IMPRES PAMELA: 1. No eviden ce for fractu re or sublux ation. Electr onical ly Signed by: Mauricio Hobson at 2022 15:53: 11 PM Page [address] (Imaging) [address] [place], [place], [place], 05/22/2023 16:00:30 05/20/20 23 05/20/2023 XR, lumba r spine [facility] [address] [place] [phone] Patihannah t Name: ARIELLA BRICE Access ion #: [id number] Sex: F : 1995 3 Dictat ed By: Mauricio Hobson Attend ing Physic chaparro: CELESTE MORLEY Physic chaparro: CELESTE MORLEY Exam Date: 2022 11:43 AM Exam Name: XR L SPINE 4V+ Admitt ing Diagno sis(es ): INDICA TION: Low back pain. TECHNI QUE: 5views of the lumbar spine were obtain ed. COMPAR PHOEBE: None. FINDIN GS: . There are no fractu res or sublux ations . No signif icant degene rative change s are identi fied. Parave rtebra l soft tissue s are unrema rkable . IMPRES PAMELA: 1. Of the visual ized spine, there is no eviden ce for fractu re or sublux ation. Electr onical ly Signed by: Mauricio Hobson at 2022 15:55: 42 PM Page 1 [email or web address] [facility] (Imaging) [address] [place], [address], 05/22/2023 16:00:31 07/17/20 23 07/16/2023 CT, abdom en + pelvi s, w/ contr ast No observ ation record ed. [email or web address] [place] [address] (Imaging) [address] [place] [address] [address], [address], 07/21/2023 12:47:34 Result Notes Documentation Provider Name and Address Organization Details Recorded Time Xr, Cervical Spine, 2 Or 3 View : [facility] [address] [place] [address] Patient Name: VICKIE BRICE Sex: F : 1995 Dictated By: Mauricio Hobson Attending Physician: CELESTE MORLEY Ordering Physician: CELESTE MORLEY Exam Date: 05/20/2023 11:43 AM Exam Name: XR C SPINE 3V Admitting Diagnosis(es): INDICATION: Cervical spine pain. TECHNIQUE: 3 views of the cervical spine were obtained. COMPARISON: None. FINDINGS: The cervical spine is visualized from C1-C7. There is loss of the normal cervical lordosis which can be positional. No fractures or subluxations are identified. Alignment appears unremarkable. Prevertebral soft tissues are within normal limits. IMPRESSION: 1. No evidence for fracture or subluxation. Page 1 LUIS Gould [address] [place] [address], [phone], [facility] [employer] [facility] 05/22/2023 16:00:30 Xr, Lumbar Spine : [facility] [address] [place] [address] Patient Name: VICKIE BRICE Sex: F : 1995 Dictated By: Mauricio Hobson Attending Physician: CELESTE MORLEY Ordering Physician: CELESTE MORLEY Exam Date: 05/20/2023 11:43 AM Exam Name: XR L SPINE 4V+ Admitting Diagnosis(es): INDICATION: Low back pain. TECHNIQUE: 5views of the lumbar spine were obtained. COMPARISON: None. FINDINGS: . There are no fractures or subluxations. No significant degenerative changes are identified. Paravertebral soft tissues are unremarkable. IMPRESSION: 1. Of the visualized spine, there is no evidence for fracture or subluxation. Page 1 LUIS Gould [address], [phone], [employer] [facility] [employer] [facility] 05/22/2023 16:00:31 Problems Name Problem SNOMED Code Status Onset Date Resolution Date Notes Provider Name and Address Organization Details Recorded Time Asthma 378408664 Completed Not Available [facility] 3 16:30:48 Dyspnea 118656899 Completed Not Available [facility] 3 16:30:48 Low back pain 658089890 Completed Not Available [facility] 3 16:30:48 Depressiv e disorder 77142284 Active Not Available [facility] 3 22:37:09 Ingrowing nail 826607528 Completed Not Available [facility] 3 16:30:48 Obesity 147794615 Active Not Available [facility] 3 22:37:09 Anxiety 73948071 Active Not Available [facility] 3 22:37:09 Dysuria 80228030 Completed Not Available [facility] 3 16:30:48 Upper respirato ry infection 71893856 Completed Not Available [facility] 3 16:30:48 Urinary tract infectiou s disease 64139417 Completed Not Available [facility] 3 16:30:48 Smoker 11149342 Active Quit 8 Not Available [facility] 3 22:37:09 Gastroeso phageal reflux disease 969446170 Completed 201601/23/2021 Not Available [facility] 3 16:30:48 Hyperprot einemia 98478426 Active 2022 Not Available [facility] 3 22:37:09 Cobalamin deficienc y 340398540 Active 2022 Not Available [facility] 3 22:37:09 Anemia 574961668 Active 2022 Not Available [facility] 3 22:37:09 Vitamin D deficienc y 40227276 Active 2022 Not Available [facility] 3 22:37:09 Lumbar radiculop athy 107318481 Active 2022 Not Available [facility] 3 22:37:09 Weight gain 6211727 Active 2022 Not Available [facility] 3 22:37:09 Mixed anxiety and depressiv e disorder 353782600 Active 2022 Not Available [facility] 3 22:37:09 Nicotine dependenc e 81920400 Active 2022 Not Available [facility] 3 22:37:09 Pain in pelvis 56973169 Active 2022 Not Available [facility] 3 22:37:09 Gastroeso phageal reflux disease without esophagit is 116396037 Active 2022 Not Available [facility] 3 22:37:09 Chronic neck pain 63578517680 07 Active 2022 Not Available [facility] 3 22:37:09 Chronic back pain 565984681 Active 2022 Not Available [facility] 3 22:37:09 Chronic abdominal pain 850902208 Active 2022 Not Available [facility] 3 22:37:09 Lymphaden opathy 71696790 Active 2022 Not Available [facility] 3 22:37:09 Iron deficienc y 59743798 Active 2022 Not Available [facility] 3 22:37:09 Chronic constipat ion 901696368 Active 2022 YOBANY Trevino Alyse [place] [employer] 3 15:51:42 Problem Notes None recorded. Procedures Surgical History Date Name Laterality Status Provider Name and Address Organization Details Recorded Time section completed Not Available [facility] 11/06/2022 16:29:56 Jaw arthroscopy/surgery completed Not Available [facility] 023 16:29:56 Tonsillectomy completed Not Available [facility] th 11/06/2022 16:29:56 laparoscopic sleeve gastrectomy completed Not Available [facility] 11/06/2022 16:29:56 Cholecystectomy completed Not Available [facility] 11/06/2022 16:29:56 Imaging Results None recorded. Procedure Notes None recorded. Medical Equipment None Reported. Allergies No known drug allergies Medications Name Sig Start Date Stop Date Status Note LastModified by Organization Details LastModified Time amoxicilli n 500 mg capsule Take 1 capsule 3 times a day by oral route for 7 days. active Not Available Not Available No t Available bupropion HCl SR 150 mg tablet,12 hr sustained- release TAKE 1 TABLET BY MOUTH TWICE DAILY 05/20 completed Not Available Not Available Not Available lamotrigin e 200 mg tablet TAKE 1 TABLET BY MOUTH EVERY DAY active Not Available Not Available No t Available clindamyci n HCl 300 mg capsule TK ONE C PO QID FOR 10 DAYS 05/20 completed Not Available Not Available Not Available azithromyc in 250 mg tablet FPD 02/20 completed Not Available Not Available Not Available benzonatat e 200 mg capsule Take 1 capsule 3 times a day by oral route for 5 days. active Not Available Not Available No t Available ampicillin 500 mg capsule TAKE 1 CAPSULE BY MOUTH EVERY 12 HOURS FOR 10 DAYS 10/03 completed Not Available Not Available Not Available ranitidine 300 mg tablet TK 1 T PO QHS 04/30 completed Not Available Not Available Not Available hydrocodon e 5 mg-acetami nophen 325 mg tablet active Not Available Not Available No t Available ondansetro n HCl 4 mg tablet TK 1 T PO Q 4 TO 6 H PRN 01/23 completed Not Available Not Available Not Available dextroamph etamine-am phetamine 10 mg tablet TAKE 1 TABLET BY MOUTH TWICE DAILY 10/03 completed Not Available Not Available Not Available Doc-Q-Lace 100 mg capsule active Not Available Not Available Not Available terconazol e 0.8 % vaginal cream IVB FOR 3 DAYS 01/23 completed Not Available Not Available Not Available oxycodone 5 mg/5 mL oral solution TK 5 ML PO Q 4 H PRN P 05/20 completed Not Available Not Available Not Available metronidaz ole 500 mg tablet TK 1 T PO QID TAT 05/20 completed Not Available Not Available Not Available acetaminop hen 300 mg-codeine 30 mg tablet active Not Available Not Available Not Available acetaminop hen 500 mg tablet TK 1 T PO Q 4 H PRN P 02/20 completed Not Available Not Available Not Available bupropion HCl SR 100 mg tablet,12 hr sustained- release Take 1 tablet twice a day by oral route. active Not Available Not Available No t Available lamotrigin e 25 mg tablet TAKE 1 TABLET BY MOUTH DAILY FOR 2 WEEKS THEN 2 TABLETS DAILY FOR 2 WEEKS THEN 4 TABLETS 10/03 completed Not Available Not Available Not Available bupropion HCl 100 mg tablet TAKE 1 TABLET BY MOUTH THREE TIMES DAILY DIRECTED 05/28 completed Not Available Not Available Not Available amoxicilli n 875 mg tablet TAKE 1 TABLET BY MOUTH EVERY 12 HOURS 10/03 completed Not Available Not Available Not Available Deep Sea Nasal 0.65 % spray aerosol U 2 SPRAYS IEN Q HOUR PRN 05/20 completed Not Available Not Available Not Available famotidine 20 mg tablet TAKE 1 TABLET BY MOUTH TWICE DAILY 10/03 completed Not Available Not Available Not Available lorazepam 0.5 mg tablet Take 1 tablet twice a day by oral route as needed. active Not Available Not Available No t Available dextroamph etamine-am phetamine ER 20 mg 24hr capsule,ex tend release TAKE 1 CAPSULE BY MOUTH EVERY DAY active Not Available Not Available No t Available dicyclomin e 20 mg tablet TK 1 T PO Q 6 H 04/30 completed Not Available Not Available Not Available benzonatat e 100 mg capsule TK 2 CS PO TID active Not Available Not Available No t Available cephalexin 500 mg capsule TAKE 1 CAPSULE BY MOUTH EVERY 6 HOURS FOR 7 DAYS active Not Available Not Available No t Available pantoprazo le 40 mg tablet,del ayed release TAKE 1 TABLET BY MOUTH ONCE DAILY active Not Available Not Available No t Available cyanocobal lazaro (vit B-12) 1,000 mcg/mL injection solution Inject 1mL SC once weekly x 4 weeks, then monthly thereaft er active Not Available Not Available No t Available ferrous sulfate 325 mg (65 mg iron) tablet Take 1 tablet every day by oral route. 2022 active Not Available Not Available Not Avai lable cephalexin 250 mg/5 mL oral suspension TK 2 REAL PO QID TAT 05/20 completed Not Available Not Available Not Available esomeprazo le magnesium 40 mg capsule,de layed release TK ONE C PO QD active as needed Not Available Not Available Not Available nystatin-t riamcinolo ne 100,000 unit/g-0.1 % topical cream active Not Available Not Available Not Available fluoxetine 10 mg capsule TAKE 1 CAPSULE BY MOUTH EVERY DAY IN THE MORNING 06/11 completed Not Available Not Available Not Available dextroamph etamine-am phetamine ER 10 mg 24hr capsule,ex tend release TAKE 1 CAPSULE BY MOUTH EVERY DAY 10/03 completed Not Available Not Available Not Available zolpidem 5 mg tablet TAKE 1 TABLET BY MOUTH AT BEDTIME FOR INSOMNIA 10/03 completed Not Available Not Available Not Available ergocalcif jason (vitamin D2) 1,250 mcg (50,000 unit) capsule TAKE 1 CAPSULE BY MOUTH EVERY WEEK active Not Available Not Available No t Available ibuprofen 600 mg tablet active Not Available Not Available Not Available zolpidem 10 mg tablet TAKE 1 TABLET BY MOUTH AT BEDTIME NEEDED 10/03 completed Not Available Not Available Not Available methylpred nisolone 4 mg tablets in a dose pack TAKE DIRECTED active Not Available Not Available No t Available ondansetro n 4 mg disintegra ting tablet 10/03 completed Not Available Not Available Not Available fluoxetine 20 mg capsule TAKE 1 CAPSULE BY MOUTH EVERY DAY 10/03 completed Not Available Not Available Not Available fluticason e propionate 50 mcg/actuat ion nasal spray,susp ension INSTILL 2 SPRAYS IN THE NOSTRILS DAILY 02/20 completed Not Available Not Available Not Available lamotrigin e 100 mg tablet TAKE 1 TABLET BY MOUTH EVERY DAY 05/20 completed Not Available Not Available Not Available amoxicilli n 875 mg-potassi um clavulanat e 125 mg tablet TK 1 T PO BID TAT 05/20 completed Not Available Not Available Not Available NuvaRing 0.12 mg-0.015 mg/24 hr vaginal Insert 1 VAGINAL RING for 3 weeks by vaginal route. Remove for 1 week then repeat active Not Available Not Available No t Available escitalopr am 10 mg tablet TK 1 T PO QD 01/23 completed Not Available Not Available Not Available Jessy-BE 0.35 mg tablet active Not Available Not Available Not Available aripiprazo le 5 mg tablet TAKE 1 TABLET BY MOUTH EVERYDAY AT BEDTIME 05/20 completed Not Available Not Available Not Available cholestyra mine (with sugar) 4 gram powder for susp in a packet Take 1 packet 3 times a day by oral route as needed. 12/18 completed Not Available Not Available Not Available bupropion HCl XL 150 mg 24 hr tablet, extended release TK 1 T PO D 06/11 completed Not Available Not Available Not Available BD Integra Syringe 3 mL 25 gauge x 5/8 USE DIRECTED TO INJECT B12 10/03 completed Not Available Not Available Not Available chlorhexid ine gluconate 0.12 % mouthwash SWISH AND SPIT 15 ML POST MEALS 05/20 completed Not Available Not Available Not Available Vyvanse 05/20 completed from psych- unsure dosage Not Available Not Available Not Available Vyvanse 60 mg capsule TAKE 1 CAPSULE BY MOUTH EVERY DAY 05/20 completed Not Available Not Available Not Available Vyvanse 40 mg capsule TAKE 1 CAPSULE BY MOUTH EVERY DAY 05/20 completed Not Available Not Available Not Available TodMartinezDu o DHA 29 mg-1 mg-400 mg oral pack active Not Available Not Available No t Available OneTouch Verio test strips TEST QID 01/23 completed Not Available Not Available Not Available DHA 200 mg capsule active Not Available Not Available Not Available Virtussin AC 10 mg-100 mg/5 mL oral liquid TK 10 ML PO Q 4 TO 6 H PRN FOR COUGH 04/30 completed Not Available Not Available Not Available OneTouch Verio Flex Meter USE DIRECTED 01/23 completed Not Available Not Available Not Available OneTouch Delica Plus Lancet 33 gauge TEST QID 01/23 completed Not Available Not Available Not Available Vitals Date Recorded Body mass index (BMI) Body height Oxygen saturation Oxygen saturation in Arterial blood by Pulse oximetry Heart rate Body temperature Body weight Systolic And Diastolic Provider Name and Address Organization Details Last Updated DateTime 3 32.9 kg/m2 154.94 cm 97 % 97 % 84 /min 97.7 [degF] 36578.0 7 g 126/78 mm[Hg] Not Available [facility] 3 16:30:36 Date Recorded Body mass index (BMI) Body height Oxygen saturation Oxygen saturation in Arterial blood by Pulse oximetry Heart rate Body temperature Body weight Systolic And Diastolic Provider Name and Address Organization Details Last Updated DateTime 2 32.9 kg/m2 154.94 cm 98 % 98 % 90 /min 97.7 [degF] 89571.0 7 g 122/76 mm[Hg] Not Available [facility] 3 16:30:36 Date Recorded Body height Body mass index (BMI) Body weight Body temperature Heart rate Oxygen saturation Oxygen saturation in Arterial blood by Pulse oximetry Systolic And Diastolic Provider Name and Address Organization Details Last Updated DateTime 3 154.94 cm 32.5 kg/m2 57137.8 9 g 97.4 [degF] 74 /min 98 % 98 % 116/78 mm[Hg] Torrie Millard, ELIE [place] [employer] [facility] 3 11:34:18 Date Recorded Body mass index (BMI) Body height Oxygen saturation Oxygen saturation in Arterial blood by Pulse oximetry Heart rate Body temperature Body weight Systolic And Diastolic Provider Name and Address Organization Details Last Updated DateTime 1 31.7 kg/m2 154.94 cm 98 % 98 % 54 /min 97.6 [degF] 43364.5 2 g 120/70 mm[Hg] Not Available [facility] 3 16:30:36 Date Recorded Body mass index (BMI) Body height Oxygen saturation Oxygen saturation in Arterial blood by Pulse oximetry Heart rate Body temperature Body weight Systolic And Diastolic Provider Name and Address Organization Details Last Updated DateTime 1 31.7 kg/m2 154.94 cm 98 % 98 % 63 /min 97.6 [degF] 39579.5 2 g 120/76 mm[Hg] Not Available [facility] 3 16:30:36 Social History Question Answer Notes LastModified by Organizat ion Details LastModified Time Tobacco Smoking Status Current Every Day Smoker Not Available [facility] 11/06/2022 16:29:50 Do You Have An Advance Directive? No [id number] Information not available 11/06/2022 What Is Your Level Of Caffeine Consumption? Occasional [id number].68541 [id number] Information not available 11/06/2022 How Much Tobacco Do You Chew? None MIGRATION.71360 [id number] Information not available 11/06/2022 In The 14 Days Before Symptom Onset, Have You Had Close Contact With A Laboratory-confi rmed COVID-19 While That Case Was Ill? No MIGRATION.10634 [id number] Information not available 11/06/2022 In The 14 Days Before Symptom Onset, Have You Had Close Contact With A Person Who Is Under Investigation For COVID-19 While That Person Was Ill? No MIGRATION.24933 53185 Information not available 11/06/2022 What Type Of Diet Are You Following? REGULAR MIGRATION.10386 34410 Information not available 11/06/2022 Which Illicit Or Recreational Drugs Have You Used? Marijuana MIGRATION.57195 43310 Information not available 11/06/2022 Have There Been Any Changes To Your Family Or Social Situation? No MIGRATION.66655 23111 Information not available 11/06/2022 Are There Any Guns Present In Your Home? No MIGRATION.88342 37881 Information not available 11/06/2022 Do You Use Insect Repellent Routinely? No MIGRATION.64680 37140 Information not available 11/06/2022 Where Do You Live? [place]House MIGRATION.88622 30532 Information not available 11/06/2022 What Was The Date Of Your Most Recent Tobacco Screening? 05/20/2023 [email or web address] Information not available 05/20/2023 Do You Have Any Pets? Yes MIGRATION.95704 24018 Information not available 11/06/2022 Do You Use Your Seat Belt Or Car Seat Routinely? Yes MIGRATION.03920 80973 Information not available 11/06/2022 Do You Have Smoke And Carbon Monoxide Detectors In Your Home? Yes MIGRATION.14738 40253 Information not available 11/06/2022 At What Age Did You Start Smoking Tobacco? 18 MIGRATION.09550 57715 Information not available 11/06/2022 Are You Passively Exposed To Smoke? Yes MIGRATION.76981 26130 Information not available 11/06/2022 Are There Any Smokers In Your House? No MIGRATION.41981 35624 Information not available 11/06/2022 How Much Tobacco Do You Smoke? 1 PPW MIGRATION.97222 94021 Information not available 11/06/2022 Do You Use Sunscreen Routinely? No MIGRATION.19127 03639 Information not available 11/06/2022 Have You Recently Traveled Abroad? No MIGRATION.22573 55751 Information not available 11/06/2022 Sex: Female Functional Status Question Answer Note LastModified by Organizat ion Details LastModified Time What is your level of alcohol consumption? Occasional [id number] Information not available 11/06/2022 Do you or have you ever used smokeless tobacco? 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 Never used electronic cigarettes MIGRATION.[id number] 026 Information not available 11/06/2022 What is your exercise level? None MIGRATION.[id number] 026 Information not available 11/06/2022 Mental Status Question Answer Note LastModified by Organizat ion Details LastModified Time Do you feel stressed (tense, restless, nervous, or anxious, or unable to sleep at night)? [id number] MIGRATION.[id number] Information not available 11/06/2022 Family History Relationship Description Onset Age of this Age Resolved Age Notes LastModified by Organization Details LastModified Time Mother Hypertensive disorder [id number] Not available 11/06/2022 16:29:57 Father Hypercholest erolemia MIGRATION.440 [id number] Not available 11/06/2022 16:29:57 Paternal Grandmother Heart disease MIGRATION.[id number] Not available 11/06/2022 16:29:57 Maternal Grandfather Malignant neoplasm of urinary bladder MIGRATION.571 [id number] Not available 11/06/2022 16:29:57 Maternal Grandmother Malignant neoplasm of breast MIGRATION.[id number] Not available 11/06/2022 16:29:57 Medical History Condition Response NERVE DISEASE N BLINDNESS N RHEUMATIC FEVER N KIDNEY STONES N BLADDER PROBLEMS N MRSA N OTHER # 1 N POLIO N LUNG DISEASE/DISORDER N RADIATION / CHEMOTHERAPY N COPD N Other # 2 N BLOOD DISEASES N EAR OR HEARING PROBLEMS N MUMPS N BOWEL PROBLEMS N DEPRESSION (INCLUDING POST ) Y STROKE/TIA N ULCERS N BENIGN PROSTATIC HYPERPLASIA N MEASLES N MYOCARDIAL INFARCTION N OBESITY N GERD/NAUSEA N ANEURYSM N URINARY/BLADDER/KIDNEY PROBLEMS N CORONARY ARTERY DISEASE (CAD) N ADDICTION CONCERNS N Impotence N ENDOMETRIOSIS N USE OF BLOOD THINNERS N SKIN PROBLEMS N GASTROINTESTINAL DISORDER N PERIPHERAL VASCULAR DISEASE N MUSCLE,JOINT OR BONE PROBLEMS N GASTROINTESTINAL BLEEDING N BLOOD CLOTS N ASTHMA N CATARACTS N ERECTILE DYSFUNCTION N VARICOSITIES N GI PROBLEMS N Low Testosterone N INFERTILITY N AIDS/HIV N CHEMOTHERAPY / RADIATION N LIVER DISEASE N MALE HYPOGONADISM N HYPERTENSION N Deficiency N TOURETTE'S N ANXIETY DISORDER Y BLOOD TRANSFUSION N ANEMIA/BLOOD DISORDER N CHRONIC EAR INFECTIONS N BRONCHITIS N TUBERCULOSIS N GLAUCOMA N FOOT PROBLEM N DIVERTICULITIS N SLEEP APNEA N CHICKENPOX N INFECTIOUS DISEASE N PROSTATE N HEART ARRHYTHMIA N INSOMNIA N HIGH CHOLESTEROL / HYPERLIPIDEMIA N EYE PROBLEMS N HYPERTHYROIDISM N EDEMA N CHRONIC PAIN SYNDROME N HYPOTHYROIDISM N CONSTIPATION N CAROTID BLOCKAGE N BACK / NECK PROBLEMS N HAVE YOU BEEN HOSPITALIZED OR SEEN IN [facility] IN THE PAST YEAR ? Y ATHEROSCLEROSIS N BREAST PROBLEMS N DIALYSIS N ECZEMA N OSTEOPOROSIS N ARTHRITIS N APPENDICITIS N DIABETES, TYPE N BAD TEETH N ENT N HEARTBURN / REFLUX N AUTISM SPECTRUM DISORDER (ASD) N HEPATITIS / LIVER DISEASE N GOUT N SLEEP DISORDER N ALZHEIMER'S DISEASE N Brain Problems N DEMENTIA N HERPES N SEIZURES/EPILEPSY N HEADACHES/MIGRAINES N VASCULAR DISEASE N PACEMAKER N Blood Disorder N DIZZINESS N HEART DISEASE/HEART PROBLEMS N KIDNEY DISEASE N MULTIPLE SCLEROSIS N CANCER: SPECIFY N CARDIAC ARRHYTHMIA N ATRIAL FIBRILLATION N Gall Stones N PULMONARY EMBOLISM N AUTOIMMUNE DISEASE N Gynecological HistoryNo gynecological history recorded. Obstetrics History GPAL:G 0 P 0 0 0 0 Past Encounters Encounter ID Performer Location Encounter Start Date Encounter Closed Date Diagnosis/Indication Diagnosis SNOMED-CT Code Diagnosis ICD10 Code Diagnosis IMO Codes Diagnosis Note [id number] MD DAJA WashingtonS_G Internal Med [facility] 15 [address] [facility] [address] [address] 01/23/2021 00:00:00 01/23/2021 14:20:16 [id number] MD DAJA WashingtonS_G Internal Med [facility] [address] [facility], [address] [address] 05/28/2021 00:00:00 05/28/2021 13:58:07 [id number] MD SARIKA Washington_GMG Internal Med [facility] [address] [facility] [address] [address] 06/11/2021 00:00:00 06/11/2021 13:22:00 [id number] MD DAJA WashingtonS_G Internal Med [facility] [address] [facility], [address] [address] 06/21/2021 00:00:00 06/21/2021 17:48:17 [id number] Lina tripathi MD S_G Internal Med [facility] [address] [facility] [address] [address] 12/18/2021 00:00:00 12/18/2021 14:47:01 [id number] MD DAJA WashingtonS_GMG Internal Med [facility] [address] [place] [address], [address] [address] 10/03/2022 00:00:00 10/03/2022 12:01:11 [id number] Melanie Costa NP [facility] [address] [place] [address] 02/13/2021 00:00:00 02/14/2021 09:09:02 [id number] Melanie Costa NP [facility] [address] [place], [facility] [address] [place] [address] 03/01/2021 00:00:00 03/01/2021 19:34:13 [id number] Melanie Costa NP [facility] [address] [place] [address] [address] 04/03/2021 00:00:00 05/08/2021 12:48:35 [id number] Lina tripathi MD [facility] Internal Med [facility] [address] [place], [facility] [address] [place] [address] 05/20/2023 11:26:18 05/20/2023 12:10:35 Cobalamin deficiency 840546522 E53.8 check labs- will likely need to restart shots Mixed anxi ety and depressive disorder 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 Nikolay Alvarez and [facility] from [facility] office if any change in mood or behaviorCo unseling recommende d-name/num bers given to patient today24 hour crisis line given to patient today Anemia 778238483 D64.9 follows hematology - Dr. Moralez has not been going to see him for follow-up Vitamin D deficiency 347 02732 E55.9 Not currently on supplement , check labs Nicotine dependence 5629 4008 F17.200 3 minutes spent with patient discussing risks, cessation options. Patient encouraged to quit. Is not interested in cessation at this time. Lumbar radiculopathy 128 405929 M54.16 She did not get her MRISymptom s have now resolved Gastroesop hageal reflux disease without esophagitis 049742566 K21.9 on protonixco ntinue antireflux measures- bland diet, avoid spicy foods, ETOH, caffeine Hyperproteinemia 5995100 9 E88.09 Check SPEP Obesity 730641562 E66.9 recommend healthy, well balanced mealsfocus on lean meats, fresh vegetables , fresh fruits, whole grainsredu ce fast/proce ssed foods or eating out to no more than 1-2 times per weekaim to get 30 min of exercise most days of the week- walking is a great choicealso recommend resistance training 2-3 times per week Chronic back pain 205769 002 M54.9 Check x-rayStart PTWill follow-up again with her after her PT is overER precaution s Chronic neck pain 624431 5696 107 M54.2 As above Chronic ab dominal pain 380180243 R10.[address] scanAfter she gets the scan we will plan for GI referralER precaution s Hyperlipid emia screening 506944222 Z13.220 Diabetes m ellitus screening 552878563 Z13.1 Lymphadenopathy 99973228 R59.0 Tiny lymph node noted in area of concernRec ommend patient monitor, call if gets larger and we can consider an ultrasound Health Concerns Section Related Observation LastModified by Organization Detai ls LastModified Time None Recorded Concern Status LastModified by Organization Details LastModified Time None Recorded Advance Directives Directive N: Payers Insurance Date Sequence Insurance Name Policy Number Policy Hawkins Covered Member ID Hawkins Member ID Guarantor Name 07/19/2023 1 [place] [id number] Robert Maldonado [id number] Vickie Barillas Yuniel Notes Date Note Type Note Provider Name and Address Organization Details Recorded Time 05/20/2023 text/html Vickie presents today with multiple medical complaints. She was last seen back in September and then missed her last appointment and has not been seen since. Back in September, she was having lumbar radiculopathy symptoms. Did order her MRI but she did not get that done. She reports those symptoms are now improved, she thinks this had to do with her epidural she had with her most recent baby. She also had some elevated protein levels in her blood. We had ordered her an SPEP however she did not get that done. Today she has multiple complaints. First, she has noticed a small lump on the back of her neck. She is not sure how long it has been there. She reports it is not painful. No known injury. She reports she continues to struggle with depression. She is working with her psychiatrist on her mood medications. She is not currently seeing a counselor. She denies any SI or HI today. She continues to have issues with chronic abdominal pain, she reports she has had this pain intermittently since she had her gallbladder removed several years ago. She reports that she has intermittent right upper quadrant, epigastric, left upper quadrant, right lower quadrant, and left lower quadrant pain. She does not note any sort of aggravating factors. She reports this comes and goes on its own. It does not seem to be related to anything that she is eating or doing. She is taking her Protonix for her GERD symptoms. She does have history of bariatric surgery. She denies any dark or tarry stools. Denies any nausea or vomiting. Today she is not having any abdominal pain. She complains also chronic neck pain. She reports this has been going on for years. She has never had any imaging done. She also complains of lower back pain. She reports this is an ache across the lower back. She has also never had imaging done of the low back. She has never been to physical therapy. She denies any bladder bowel changes, denies any saddle paresthesias, denies any numbness or tingling into the extremities. She is due for labs. She has not been coming in for her B12 injections. Celeste Morley, ANA M-C [address] [facility], [facility] [address], [place], [address], [place] [facility] [employer] [facility] 05/20/2023 14:17:11 OBGyn Episode No OBEpisode recorded.
--- OUTSIDE RECORDS SUMMARY | 2025-07-06 01:50 | XMS_ITS | Patient Health Record ---
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 Role Phone Justina Gaviria APRN Primary Care Provider Karin Liz Unavailable [phone] Allergies No Known Allergies Reason For Referral No Information Medications Medication SIG (Take, Route, Frequency, Duration) Notes Start Date End Date Status hydrOXYzine HCl 10 MG Tablet 1 tablet as needed Orally twice a day; Duration: 30 days As needed 04/04/2025 Active Lurasidone HCl 20 MG Tablet 1 tablet in the evening with food Orally Once a day; Duration: 30 days 04/04/2025 Active Social History Tobacco Use: Social History Observation Description Date Details (start date - stop date) Current some da y smoker 04/04/2025 - NA Sex Assigned At : Social History Observation Description Sex Assigned At Female Social History Miscellaneous: Social Info Question Answer Notes Safety issues: Are there any firearms in the house? No Social History Social Info Question Answer Notes Household: Marital Status: Number of Adults in household: 4 Number of Children in Household: 4 Level of Education: Finished High School Drug/Alcohol: Social Info Question Answer Notes Drugs Have you used drugs other than those for medical reasons in the past 12 months? No AUDIT-C (Standard) Did you have a drink containing alcohol in the past year? Yes How often did you have six or more drinks on one occasion in the past year? Less than monthly (1 point) How many drinks did you have on a typical day when you were drinking in the past year? 1 or 2 drinks (0 point) How often did you have a drink containing alcohol in the past year? 2 to 4 times a month (2 points) Tobacco Use: Social Info Question Answer Notes Tobacco Control (Standard) Tobacco use: Current some d ay smoker When did you start smoking? 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), inattentive type (F90.0) Active confirmed Problem Bipolar 1 disorder (501254130) Bipolar 1 disorder (F31.9) Active confirmed Encounters Encounter Location Date Provider Diagnosis [facility] [address] [place] [address] 04/04/2025 Karin Mccord Nicotine use Z72.0 ; Bipolar 1 disorder F31.9 ; ARASH (generalized anxiety disorder) F41.1 and ADHD (attention deficit hyperactivity disorder), inattentive type F90.0 Assessments Encounter Date Diagnosis (ICD Code) Assessment Notes Treatment Notes Treatment Clinical Notes Section Notes 04/04/2025 Bipolar 1 disorder (ICD-10 - F31.9) Second generation antipsychotics (SGAs) have metabolic syndrome issues with weight gain, increase in prolactin, increased waist circumference, increased lipids, and increased glucose. Thus routine monitoring of weight, metabolic labs, etc. is indicated. A general rank ordering of antipsychotics that have the greatest to the least risk of metabolic effects is olanzapine, quetiapine, risperidone, ziprasidone, and aripiprazole. However, weight gain can occur with all of these drugs and considerable variability exists among patients receiving the same drug regarding the risk of metabolic effects. Anti-psychotic agents not only increase the risk of metabolic disorder, they also increase the risk of CVA, akathisia, and movement disorders including EPS or tardive dyskinesia (more common with first generation antipsychotics) and more. 04/04/2025 Nicotine use (ICD-10 - Z72.0) 04/04/2025 ARASH (generalized anxiety disorder) (ICD-10 - F41.1) 04/04/2025 ADHD (attention deficit hyperactivity disorder), inattentive type (ICD-10 - F90.0) 04/04/2025 Other Start latuda 20mg daily for mood stabilization Start hydroxyzine 10mg BID PRN for anxiety management Consider Wellbutrin, ADHD medication at next visit pending response to mood stabilizer. Patient educated on all medications including potential benefits, side effects, risks. Educated on proper dosing schedule and importance of compliance. -Assessment and treatment plan reviewed with patient. -Compliance with treatment plan importance discussed. -Discussed the risks/benefits of this medication -Discussed medication side effects. -Contact office if symptoms worsen. -Discussed that it can take up to 6-8 weeks to see full therapeutic effects of psychotropic medications. -Crisis prevention hotline 988. Plan Of Treatment No Information Insurance Providers Payer Name Payer Address Payer Phone Subscriber Number Group Number Insured Name Patient Relationship to Insured Coverage Start Date Coverage End Date [employer] [address] [place] [address] [id number] Ansley Maldonado Self - patient is the insured Medical (General) History Medical History History ICD Code Past Psychiatric History: Anxiety Disord er,Panic Disorder,Bipolar Disorder abdominal aortic aneurysm: No atrial fibrillation: No chronic fatigue syndrome: No essential tremor: No hyperlipidemia: No hypertension: No Parkinson's disease: No restless leg syndrome: Yes stroke: No subdural hematoma: No type 1 diabetes mellitus: No type 2 diabetes mellitus: No vitamin B12 deficiency: Yes vitamin D deficiency: Yes Surgical History Surgery Date(Month/Year) Gastric sleeve Double jaw surgery Gallbladder removal Tonsilectomy
[2025-07-06 11:38] VITALS: BP 142/97; PULSE 62; RESP 16; TEMP 36.7; O2SAT 100; BMI 37.0
[2025-07-06 11:43] LABS: BEDSIDEPREGUCG Negative (Negative)
[2025-07-06] MEDS: LACTATED RINGERS 1,000 ML 150 ML IV CONT (11:50)
--- NOTE | 2025-07-06 12:46 | P.PNAN_ITS ---
Anes - Initial Pre Proc Eval Procedure: Operation Date: 07/06/25 11:45 Proposed Procedures p Esophagogastroduodenoscopy EGD - Edwardo Riddle MD Date/Time: 07/06/25 12:46 Surgeon: Edwardo Riddle MD Pre Op Diagnosis: GERD Pre Op Diagnosis: Bariatric surgery status,Generalized abdominal amauri Patient Data Age: 29 Gender: F Height: 1.57 m Weight: 92 kg Last Vital Signs Temp 36.7 C 07/06/25 11:38 Pulse 62 07/06/25 11:38 Resp 16 07/06/25 11:38 BP 142/97 H 07/06/25 11:38 Pulse Ox 100 07/06/25 11:38 O2 Del Method Room Air 07/06/25 11:38 Allergies Allergy/AdvReac Type Severity Reaction Status Date / Time No Known Allergies Allergy Unknown Verified 07/06/25 11:33 Home Medications ?Medication ?Instructions ?Recorded ?Confirmed ?Type cholecalciferol (vitamin D3) 25 25 mcg PO DAILY #90 ca ps 01/13/25 07/06/25 Rx mcg (1,000 unit) capsule bupropion HCl 150 mg tablet,12 hr 150 mg PO .COMPLEX s moking 06/02/25 07/06/25 Rx sustained-release (Wellbutrin SR) cessation #180 tabs iron,carbonyl 65 mg-vitamin C 125 1 tablet PO DAILY #9 0 tabs 06/02/25 07/06/25 Rx mg tablet,delayed release (Vitron-C) Laboratory Tests 07/06/25 11:38 POC Urine HCG, Qual Negative (Negative) : patient denies HCG: negative Patient hx anesthesia problems: none Family hx anesthesia problems: none Results Review: All pre-operative results and documents have been reviewed as part of the pre- operative evaluation. [facility] Past Medical History Medical History Abdominal bloating Missed False labor Vaginal after Encounter for surgical aftercare following surgery on the digestive system Cholelithiasis and acute cholecystitis with obstruction History of stomach ulcers Surgical History Surgical History Hx laparoscopic cholecystectomy History of delivery History of mandibular surgery History of tonsillectomy History of gastric bypass Family History Family History Grandparent Family history of heart disease in male family member before age 55 Family history of malignant neoplasm of breast Family history of lung cancer Family history of malignant neoplasm of urinary bladder Family history of type 2 diabetes mellitus Hypertension Dementia Mother Cerebrovascular accident Hypertension Social History Social History Social History: Currently 5 weeks post- a vaginal delivery and . Years smoked: 10 Smoking status: Current every day smoker Tobacco type: cigarettes Alcohol intake: current Drinks per week: 1 Alcohol use details: social Substance use: former Substance use type: marijuana Last use: November 2021 Living arrangements: with family Occupation/Education: unemployed Gender identity (if verbalized by the patient): Female Sexual Orientation (if Verbalized by the Patient): Straight or Heterosexual Spiritual care concerns: No Anes - Eval Final PreProcedure Day of Procedure 07/06/25 12:46 Patient weight: obese Heart: regular rate and rhythm Lungs: clear to auscultation and normal air movement Airway: Mallampati scale class II Neurological: alert and oriented Last oral intake: >/= 8 hours ASA classification: II Emergent: no Anesthetic plan: proceed Anesthesia type and monitoring: general GIVS and standard monitoring Results Review: All pre-operative results and documents have been reviewed as part of the pre- operative evaluation. Informed Consent: The patient's anesthetic plan and its attendant risks and benefits were discussed with the patient/family/POA. Questions were solicited and answers provided to the satisfaction of the patient/family/POA.
--- NOTE | 2025-07-06 12:47 | PM.HPGS ---
History of Present Illness History of Present Illness Consent: Risks, benefits, and alternatives have been discussed and questions answered. Patient agrees to proceed with procedure. Chief complaint: Bariatric surgery status,Generalized abdominal amauri Narrative: Ansley Maldonado is a 29 year old female with gastric sleeve 6 years ago, recently abdominal pain and intermittent loose stools. Had EGD prior her bariatric surgery. Review of Systems Review of Systems: All systems reviewed & are unremarkable except as noted in HPI and below PMFSH Past Medical History Medical History Abdominal bloating Missed False labor Vaginal after Encounter for surgical aftercare following surgery on the digestive system Cholelithiasis and acute cholecystitis with obstruction History of stomach ulcers Surgical History Surgical History Hx laparoscopic cholecystectomy History of delivery History of mandibular surgery History of tonsillectomy History of gastric bypass Family History Family History Grandparent Family history of heart disease in male family member before age 55 Family history of malignant neoplasm of breast Family history of lung cancer Family history of malignant neoplasm of urinary bladder Family history of type 2 diabetes mellitus Hypertension Dementia Mother Cerebrovascular accident Hypertension Social History Social History Social History: Currently 5 weeks post- a vaginal delivery and . Years smoked: 10 Smoking status: Current every day smoker Tobacco type: cigarettes Alcohol intake: current Drinks per week: 1 Alcohol use details: social Substance use: former Substance use type: marijuana Last use: November 2021 Living arrangements: with family Occupation/Education: unemployed Gender identity (if verbalized by the patient): Female Sexual Orientation (if Verbalized by the Patient): Straight or Heterosexual Spiritual care concerns: No Meds Home Medications and Allergies Home Medications ?Medication ?Instructions ?Recorded ?Confirmed ?Type cholecalciferol (vitamin D3) 25 25 mcg PO DAILY #90 caps 01/13/25 07/06/25 Rx mcg (1,000 unit) capsule bupropion HCl 150 mg tablet,12 hr 150 mg PO .COMPLEX smoking 06/02/25 07/06/25 Rx sustained-release (Wellbutrin SR) cessation #180 tabs iron,carbonyl 65 mg-vitamin C 125 1 tablet PO DAILY #90 tabs 06/02/25 07/06/25 Rx mg tablet,delayed release (Vitron-C) Allergies Allergy/AdvReac Type Severity Reaction Status Date / Time No Known Allergies Allergy Unknown Verified 07/06/25 11:33 Vital Signs Vital Signs - 24 hr 07/06/25 11:38 Temperature 98.0 F Pulse Rate 62 Respiratory Rate 16 Blood Pressure 142/97 H Pulse Oximetry 100 Oxygen Delivery Room Air Exam Const: General: comfortable and no acute distress HENMT: Face/Nose/Sinus: Normal nares present Eyes: General: appearance normal, both eyes and all related structures Neck: Neck: no JVD Resp: Auscultation: clear to auscultation bilaterally Cardio: Rate: regular rate Rhythm: regular rhythm GI: Inspection: non-distended GI Palp: Yes Soft to palpation Skin: General skin exam: normal color Extrem: General: normal to inspection Psych: Mental Status: mental status grossly normal Assessment and Plan Assessment and plan (1) Abdominal pain: Qualifiers: Abdominal location: generalized Qualified Code(s): R10.84 - Generalized abdominal pain Code(s): R10.9 - Unspecified abdominal pain Status: Acute Assessment and Plan: egd with bx (2) Abdominal bloating: Code(s): R14.0 - Abdominal distension (gaseous) Status: Acute (3) Alternating constipation and diarrhea: Code(s): R19.8 - Other specified symptoms and signs involving the digestive system and abdomen Status: Acute
--- NOTE | 2025-07-06 12:55 | S_PTH ---
PATIENT: Ansley Maldonado LOC: [facility] Day#:[id number] AGE/SX: 29/F ROOM: RE07/06/[address]: Edwardo Riddle MD : 1995 BED: DIS: 07/06/2025 SPEC #: [id number] RECD: 07/06/25 13:33 STATUS: ART BATES #: [id number] JEANNINE: 07/06/25 12:[address]: Edwardo Riddle DEPT: [facility] Surgical RECD BY: Nora Cordero ENTERED: 07/06/25 13:34 SP TYPE: Surgical OTHR DR: Justina Gaviria APRN Tissues: A - Small Bowel Bx B - Gastric Biopsy Procedures: Hematoxylin and Eosin Stain Gross and Microscopic Level 4
[2025-07-06 12:58] VITALS: BP 100/66; PULSE 79; RESP 18; O2SAT 100
[2025-07-06 13:08] VITALS: BP 110/60; PULSE 68; RESP 17; O2SAT 100
[2025-07-06 13:18] VITALS: BP 124/91; PULSE 60; RESP 18; O2SAT 100
== END 2025-07-06 13:28 | disposition home or self-care (01) ==
PROVIDERS: Anesthesiology; PCP Nurse Practitioner Family; Visit Provider Internal Medicine Gastroenterology
PROC: 0DJ08ZZ Inspection of Upper Intestinal Tract, Via Natural or Artificial Opening Endoscopic (ICD-10-PCS; CPT 43239; principal; 2025-07-06 11:45)
DX: R19.8 Other specified symptoms and signs involving the digestive system and abdomen (principal); F17.210 Nicotine dependence, cigarettes, uncomplicated; F12.90 Cannabis use, unspecified, uncomplicated; E66.9 Obesity, unspecified; Z68.37 Body mass index [BMI] 37.0-37.9, adult; Z98.890 Other specified postprocedural states; Z90.49 Acquired absence of other specified parts of digestive tract; Z98.84 Bariatric surgery status; Z87.11 Personal history of peptic ulcer disease; Z80.3 Family history of malignant neoplasm of breast; Z80.1 Family history of malignant neoplasm of trachea, bronchus and lung; Z80.52 Family history of malignant neoplasm of bladder; Z82.49 Family history of ischemic heart disease and other diseases of the circulatory system
CPT/HCPCS: 43239; 88305; J2003; J2704; J7120